=== PATIENT | female | born 1940 | race Caucasian/White ===

== ENCOUNTER 2016-09-04 14:37 | Inpatient (IN) | payer MEDICARE, OTHER ==
--- NOTE | 2016-09-04 15:26 | ER Document Report ---
ED General - General Stated Complaint: ALTERED MENTAL STATUS Time seen by provider: 15:22 Mode of Arrival: Ambulatory Information source: Patient Notes: This is a 76-year-old female with a history of chronic kidney disease (stage IV) , CHF, TIA/CVA, diabetes, recent pneumonia (on azithromycin). The patient is brought in by EMS from [facility] for changes in mental status associated with hypoxia (89% on room air), bradycardia and lethargy. - HPI Onset: Just prior to arrival Onset/Duration: Sudden Quality of pain: No pain Severity: None Pain Level: Denies Associated symptoms: Shortness of breath. denies: Chills, Fever Exacerbated by: Denies Relieved by: Denies Similar symptoms previously: Yes Recently seen / treated by doctor: No - Related Data Allergies/Adverse Reactions: cefadroxil [From Duricef] Allergy (Verified 09/04/16 22:56) celecoxib [From Celebrex] Allergy (Verified 09/04/16 22:56) Sulfa (Sulfonamide Antibiotics) Allergy (Verified 09/04/16 22:56) Home Medications: Current Home Medications Amiodarone HCl [Amiodarone HCl] 1 tab PO DAILY 09/04/16 [History] Ascorbic Acid [Vitamin C 500 mg Tablet] 500 mg PO DAILY 09/04/16 [History] Aspirin [Aspirin 81 mg Chewable Tablet] 81 mg PO DAILY 09/04/16 [History] Atorvastatin Calcium [Lipitor 10 mg Tablet] 10 mg PO QHS 09/04/16 [History] Azithromycin [Zithromax 250 mg Tablet] 500 mg PO DAILY 09/04/16 [History] Collagenase Clostridium Hist. [Santyl Ointment 30 gm] 1 applic TP DAILY [History] Cyanocobalamin (Vitamin B-12) [B-12] 1,000 mcg PO DAILY 09/04/16 [History] Dextrose 50 % in Water [Dextrose 50%-Water Syringe] 50 ml IV PRN PRN 09/04/16 [ History] Diclofenac Sodium [Voltaren] 2 gm TP DAILY 09/04/16 [History] Ergocalciferol (Vitamin D2) [Vitamin D2] 50,000 unit PO Q7D 09/04/16 [History] Ferrous Sulfate [Iron] 325 mg PO DAILY 09/04/16 [History] Furosemide [Lasix] 40 mg PO QPM 09/04/16 [History] Furosemide [Lasix] 80 mg PO QAM 09/04/16 [History] Gabapentin [Neurontin 100 mg Capsule] 100 mg PO TID 09/04/16 [History] Glucagon,Human Recombinant [Glucagon Emergency Kit] 1 mg IJ PRN PRN 09/04/16 [ History] Guaifenesin/D-Methorphan Hb [Robitussin-Dm Syrup 10 Ml Udcup] 10 ml PO Q4HP PRN 09/04/16 [History] Insulin Lispro [Humalog Insulin 100 Unit/1 ml 3 ml Vial] 0 unit SUBCUT .SLD SCALE 09/04/16 [History] Isosorb Dinit/Hydralazine HCl [Bidil 20-37.5 mg Tablet] 0.5 tab PO Q8 09/04/16 [ History] Ketoconazole [Nizoral] 1 applic TP BID 09/04/16 [History] Metoprolol Tartrate [Lopressor 25 mg Tablet] 25 mg PO Q12 09/04/16 [History] Mirtazapine [Remeron 15 mg Tablet] 15 mg PO QHS 09/04/16 [History] Multivitamin [Multivitamins] 1 each PO DAILY 09/04/16 [History] Omeprazole 20 mg PO DAILY 09/04/16 [History] Oxycodone HCl [Oxycodone HCl 10 MG Tablet] 10 mg PO TIDP PRN 09/04/16 [History] Potassium Chloride [Klor-Con 10 Meq Tablet.sa] 30 meq PO DAILY 09/04/16 [History ] Zinc Sulfate [Zinc-220 Capsule] 220 mg PO DAILY 09/04/16 [History] Past Medical History - General Information source: Patient, Outside Facility Records - Social History Smoking Status: Never Smoker Cigarette use (# per day): No Chew tobacco use (# tins/day): No Frequency of alcohol use: None Drug Abuse: None Lives with: [facility] Family History: None Patient has suicidal ideation: No Patient has homicidal ideation: No - Past Medical History Cardiac Medical History: Reports: Hx Congestive Heart Failure, Hx Hypertension Pulmonary Medical History: Reports: None Neurological Medical History: Reports: Hx Cerebrovascular Accident Endocrine Medical History: Reports: Hx Diabetes Mellitus Type 2 Renal/ Medical History: Reports: Hx Renal Insufficiency Malignancy Medical History: Reports: None GI Medical History: Reports: None Musculoskeltal Medical History: Reports Hx Arthritis Skin Medical History: Reports None Psychiatric Medical History: Reports: None Traumatic Medical History: Reports: None Infectious Medical History: Reports: Other Past Surgical History: Reports: Hx Orthopedic Surgery, Hx Pacemaker Review of Systems - Review of Systems Constitutional: denies: Chills, Fever EENT: No symptoms reported Cardiovascular: No symptoms reported Respiratory: See HPI Gastrointestinal: No symptoms reported Genitourinary: No symptoms reported Female Genitourinary: No symptoms reported Musculoskeletal: No symptoms reported Skin: No symptoms reported Hematologic/Lymphatic: No symptoms reported Neurological/Psychological: No symptoms reported Physical Exam - Vital signs Vitals: Temp Pulse Resp BP Pulse Ox 98.2 F 60 30 H 138/59 H 97 09/04/16 16:00 09/04/16 16:00 09/04/16 16:00 09/04/16 16:00 09/04/16 16:00 Notes: Physical exam: GENERAL: 86-year-old female, alert and oriented 3, no acute distress HEAD: Atraumatic, normocephalic. EYES: Pupils equal round and reactive to light, extraocular movements intact, sclera anicteric, conjunctiva are normal. ENT: TMs normal, nares patent, oropharynx clear without exudates. Moist mucous membranes. NECK: Normal range of motion, supple without lymphadenopathy or JVD. LUNGS: Breath sounds clear to auscultation bilaterally and equal. No wheezes rales or rhonchi. HEART: Regular rate and rhythm without murmurs, rubs or gallops. ABDOMEN: Soft, normoactive bowel sounds. No tenderness to palpation. No guarding, no rebound. No masses appreciated. EXTREMITIES: 1+ edema bilaterally, No clubbing or cyanosis. NEUROLOGICAL: Cranial nerves II through XII grossly intact. Normal speech, normal gait. PSYCH: Normal mood, normal affect. SKIN: Warm, Dry, normal turgor, no rashes or lesions noted. Course - Re-evaluation Re-evalutation: 09/04/16 23:24 Note: The patient was transferred over because of change in mental status and hypoxia on 2 L nasal cannula. She does appear to be fluid overloaded in the emergency room. Also of concern, she does have severe hyperkalemia. EKG shows a paced rhythm. She has received IV Lasix with good response, IV insulin and D50, IV calcium and Kayexalate. She was watched several hours in the emergency room. I did discuss the case with Dr. Peacock who agreed with the plan. She will see the patient in consult for nephrology. The plan will be to admit to the hospitalist service. I discussed the case with Dr. Willis is willing to admit the patient. - Vital Signs Vital signs: Temp Pulse Resp BP Pulse Ox 98.2 F 60 22 H 138/60 H 99 09/04/16 16:00 09/04/16 21:00 09/04/16 22:45 09/04/16 22:09 09/04/16 22:45 - Laboratory Result Diagrams: 09/04/16 16:45 09/04/16 22:47 Laboratory results interpreted by me: 09/04/16 09/04/16 09/04/16 16:45 16:45 16:45 RBC 3.38 L Hgb 10.7 L Hct 33.0 L MCV 98 H Sodium 136.7 L Potassium 7.8 H* Chloride 97 L Carbon Dioxide 34 H BUN 56 H Creatinine 2.43 H Est GFR ( Amer) 23 L Est GFR (Non-Af Amer) 19 L Glucose 169 H POC Glucose Creatine Kinase < 20 L NT-Pro-B Natriuret Pep 64165 H Albumin 3.2 L Urine Ascorbic Acid 09/04/16 09/04/16 09/04/16 17:00 18:00 19:11 RBC Hgb Hct MCV Sodium Potassium 7.5 H* Chloride Carbon Dioxide 35 H BUN 56 H Creatinine 2.53 H Est GFR ( Amer) 22 L Est GFR (Non-Af Amer) 18 L Glucose 157 H POC Glucose 198 H Creatine Kinase NT-Pro-B Natriuret Pep Albumin Urine Ascorbic Acid 40 H 09/04/16 09/04/16 20:35 22:47 RBC Hgb Hct MCV Sodium Potassium 7.5 H* 7.0 H* Chloride Carbon Dioxide 33 H 33 H BUN 59 H 56 H Creatinine 2.41 H 2.44 H Est GFR ( Amer) 24 L 23 L Est GFR (Non-Af Amer) 19 L 19 L Glucose 195 H 229 H POC Glucose Creatine Kinase NT-Pro-B Natriuret Pep Albumin Urine Ascorbic Acid - Diagnostic Test Radiology reviewed: Image reviewed, Reports reviewed - EKG Interpretation by Me Rate: Normal - EKG shows a paced rhythm at a rate of 60, 100% capture. Critical Care Note - Critical Care Note Total time excluding time spent on procedures (mins): 90 Discharge - Discharge Clinical Impression: CHF, hyperkalemia Condition: Serious Disposition: ADMITTED INPATIENT Admitting Provider: Hospitalist - Dr. Willis Unit Admitted: Telemetry
[2016-09-04] MEDS ORDERED: FUROSEMIDE INJ/PF 40 MG/4 ML SDV IV ONE ×2 (16:57→18:50)
[2016-09-04 17:05] LABS: HEMOGLOBIN 10.7 g/dL (12.0-15.5); HGB HCT DIFFERENCE -0.9; MEAN CORPUSCULAR HEMOGLOBIN 31.5 pg (27.0-33.4); MEAN CORPUSCULAR HGB CONC 32.3 g/dL (32.0-36.0); MEAN CORPUSCULAR VOLUME 98 fl (80-97); RED BLOOD COUNT 3.38 10^6/uL (3.72-5.28); WHITE BLOOD COUNT 5.2 10^3/uL (4.0-10.5)
[2016-09-04 17:19] LABS: ALANINE AMINOTRANSFERASE 17 U/L (9-52); ALBUMIN 3.2 g/dL (3.5-5.0); ALKALINE PHOSPHATASE 116 U/L (38-126); ANION GAP 6 (5-19); ASPARTATE AMINO TRANSFERASE 20 U/L (14-36); BAND NEUTROPHILS % (MANUAL) 3 % (3-5); BASOPHILS % (MANUAL) 0 % (0-2); BILIRUBIN,TOTAL 0.5 mg/dL (0.2-1.3); BLOOD UREA NITROGEN 56 mg/dL (7-20); CARBON DIOXIDE 34 mmol/L (22-30); CHLORIDE 97 mmol/L (98-107); CREATININE RESULT 2.43 mg/dL (0.52-1.25); EOSINOPHILS % (MANUAL) 1 % (0-6); GLUCOSE 169 mg/dL (75-110); LYMPHOCYTES % (MANUAL) 14 % (13-45); SODIUM 136.7 mmol/L (137-145); TOTAL CELLS COUNTED 100; TOTAL PROTEIN 6.9 g/dL (6.3-8.2)
[2016-09-04 17:20] LABS: ANISOCYTOSIS SLIGHT; POLYCHROMASIA SLIGHT; TOXIC GRANULATION SLIGHT
[2016-09-04 17:21] LABS: APPEARANCE,URINE SLIGHTLY-CLOUDY; BILIRUBIN,URINE NEGATIVE (NEGATIVE); GLUCOSE, URINE NEGATIVE (NEGATIVE); KETONES,URINE NEGATIVE (NEGATIVE); LEUKOCYTE ESTERASE,URINE NEGATIVE (NEGATIVE); NITRITE,URINE NEGATIVE (NEGATIVE); PROTEIN,URINE NEGATIVE (NEGATIVE); URINE SPECIFIC GRAVITY 1.014; UROBILINOGEN,URINE NEGATIVE mg/dL (<2.0)
[2016-09-04 17:31] LABS: CREATINE KINASE MB 1.77 ng/mL (<4.55)
[2016-09-04 17:32] LABS: CREATINE KINASE < 20 U/L (30-135)
[2016-09-04 17:34] LABS: POTASSIUM 7.8 mmol/L (3.6-5.0)
[2016-09-04 17:35] LABS: TROPONIN I < 0.012 ng/mL
[2016-09-04] MEDS ORDERED: DEXTROSE 50%-WATER 25 GM/50 ML DISP.SYRIN IV ONE ×2 (17:37→21:32)
[2016-09-04] MEDS ORDERED: CALCIUM GLUCONATE 1000 MG/10 ML INJ IV ONE ×2 (17:37→18:47)
[2016-09-04] MEDS ORDERED: INSULIN REG, HUMAN 100 UNIT/ML 3 ML VIAL (PYX) IV ONE ×2 (17:38→21:32)
[2016-09-04 18:34] LABS: ANION GAP 5 (5-19); BLOOD UREA NITROGEN 56 mg/dL (7-20); CARBON DIOXIDE 35 mmol/L (22-30); CHLORIDE 99 mmol/L (98-107); CREATININE RESULT 2.53 mg/dL (0.52-1.25); GLUCOSE 157 mg/dL (75-110); SODIUM 138.7 mmol/L (137-145)
[2016-09-04 18:39] LABS: POTASSIUM 7.5 mmol/L (3.6-5.0)
[2016-09-04] MEDS ORDERED: SODIUM POLYSTYRENE SULFONATE 15 GM/60 ML PO ONE ×2 (18:48→21:32)
[2016-09-04 21:17] LABS: ANION GAP 5 (5-19); BLOOD UREA NITROGEN 59 mg/dL (7-20); CALCIUM 9.1 mg/dL (8.4-10.2); CARBON DIOXIDE 33 mmol/L (22-30); CHLORIDE 99 mmol/L (98-107); CREATININE RESULT 2.41 mg/dL (0.52-1.25); GLUCOSE 195 mg/dL (75-110); SODIUM 137.4 mmol/L (137-145)
[2016-09-04 21:21] LABS: POTASSIUM 7.5 mmol/L (3.6-5.0)
[2016-09-04] MEDS ORDERED: IPRATROPIUM/ALBUTEROL 0.5-2.5 MG/3 ML AMPUL NEB ONE (21:56)
[2016-09-04 23:14] LABS: ANION GAP 7 (5-19); BLOOD UREA NITROGEN 56 mg/dL (7-20); CALCIUM 9.3 mg/dL (8.4-10.2); CARBON DIOXIDE 33 mmol/L (22-30); CHLORIDE 100 mmol/L (98-107); CREATININE RESULT 2.44 mg/dL (0.52-1.25); GLUCOSE 229 mg/dL (75-110); SODIUM 139.9 mmol/L (137-145)
[2016-09-04] MEDS ORDERED: DEXTROSE 40% GEL 15 GM TUBE PO PRN ×2 (23:24)
[2016-09-04] MEDS ORDERED: GLUCAGON,HUMAN RECOMB 1 MG INJ IM PRN (23:24)
[2016-09-04] MEDS ORDERED: ACETAMINOPHEN 325 MG TABLET PO PRN (23:24)
[2016-09-04] MEDS ORDERED: DEXTROSE 50%-WATER 25 GM/50 ML DISP.SYRIN IV PRN ×2 (23:24)
--- NOTE | 2016-09-04 23:53 | EKG REPORT ---
SEVERITY:- ABNORMAL ECG - A-V DUAL-PACED RHYTHM WITH SOME INHIBITION : Confirmed by: Kayla Roberts 04-Sep-2016 23:52:46
[2016-09-05] MEDS ORDERED: LACTULOSE SYRUP 20 GM/30 ML UDCUP PO ONE (00:15)
[2016-09-05] MEDS: ATORVASTATIN CALCIUM 10 MG TABLET PO SCH (00:58)
[2016-09-05] MEDS: GABAPENTIN 100 MG CAPSULE PO SCH ×3 (00:59→18:40)
[2016-09-05] MEDS: MIRTAZAPINE 15 MG TABLET PO SCH (00:59)
[2016-09-05] MEDS: IPRATROPIUM/ALBUTEROL 0.5-2.5 MG/3 ML AMPUL NEB SCH ×4 (01:54→20:38)
--- NOTE | 2016-09-05 05:51 | PDOC H&P ---
History of Present Illness Admission Date/PCP: 09/04/16 23:24 STEFAN GÓMEZ JR, MD Patient complains of: Shortness of breath History of Present Illness: ANGELIKA SHAFFER is a 76 year old female who is a residential resident who is unable to provide history given delirium who was noted by residential staff to be short of breath and brought to the emergency room for evaluation where she's found to be in congestive heart failure, acute on chronic kidney failure, hyperkalemia, delirium and with an obvious history of morbid obesity and chronic lower extremity venous stasis. She receives oxygen and IV Lasix and referred to the hospitalist for admission. She currently denies anything, but is clearly delirious. Past Medical History Cardiac Medical History: Reports: Congestive Heart Failure, Hypertension Pulmonary Medical History: Reports: None Endocrine Medical History: Reports: Diabetes Mellitus Type 2, Obesity Renal/ Medical History: Reports: Chronic Kidney Disease Malignancy Medical History: Reports: None GI Medical History: Reports: None Musculoskeltal Medical History: Reports: Arthritis Skin Medical History: Reports: None Psychiatric Medical History: Reports: None, Depression Traumatic Medical History: Reports: None Past Surgical History Past Surgical History: Reports: Orthopedic Surgery, Pacemaker Social History Information Source: [facility] Records Lives with: Custodial Smoking Status: Never Smoker - Advance Directive Resuscitation Status: Full Code Family History Family History: Other - Unobtainable Parental Family History Reviewed: Yes Children Family History Reviewed: Yes Sibling(s) Family History Reviewed.: Yes Medication/Allergy Home Medications: Amiodarone HCl [Amiodarone HCl] 1 tab PO DAILY 09/04/16 Ascorbic Acid [Vitamin C 500 mg Tablet] 500 mg PO DAILY 09/04/16 Aspirin [Aspirin 81 mg Chewable Tablet] 81 mg PO DAILY 09/04/16 Atorvastatin Calcium [Lipitor 10 mg Tablet] 10 mg PO QHS 09/04/16 Azithromycin [Zithromax 250 mg Tablet] 500 mg PO DAILY 09/04/16 Collagenase Clostridium Hist. [Santyl Ointment 30 gm] 1 applic TP DAILY Cyanocobalamin (Vitamin B-12) [B-12] 1,000 mcg PO DAILY 09/04/16 Dextrose 50 % in Water [Dextrose 50%-Water Syringe] 50 ml IV PRN PRN 09/04/16 Diclofenac Sodium [Voltaren] 2 gm TP DAILY 09/04/16 Ergocalciferol (Vitamin D2) [Vitamin D2] 50,000 unit PO Q7D 09/04/16 Ferrous Sulfate [Iron] 325 mg PO DAILY 09/04/16 Furosemide [Lasix] 40 mg PO QPM 09/04/16 Furosemide [Lasix] 80 mg PO QAM 09/04/16 Gabapentin [Neurontin 100 mg Capsule] 100 mg PO TID 09/04/16 Glucagon,Human Recombinant [Glucagon Emergency Kit] 1 mg IJ PRN PRN 09/04/16 Guaifenesin/D-Methorphan Hb [Robitussin-Dm Syrup 10 Ml Udcup] 10 ml PO Q4HP PRN 09/04/16 Insulin Lispro [Humalog Insulin 100 Unit/1 ml 3 ml Vial] 0 unit SUBCUT .SLD SCALE 09/04/16 Isosorb Dinit/Hydralazine HCl [Bidil 20-37.5 mg Tablet] 0.5 tab PO Q8 09/04/16 Ketoconazole [Nizoral] 1 applic TP BID 09/04/16 Metoprolol Tartrate [Lopressor 25 mg Tablet] 25 mg PO Q12 09/04/16 Mirtazapine [Remeron 15 mg Tablet] 15 mg PO QHS 09/04/16 Multivitamin [Multivitamins] 1 each PO DAILY 09/04/16 Omeprazole 20 mg PO DAILY 09/04/16 Oxycodone HCl [Oxycodone HCl 10 MG Tablet] 10 mg PO TIDP PRN 09/04/16 Potassium Chloride [Klor-Con 10 Meq Tablet.sa] 30 meq PO DAILY 09/04/16 Zinc Sulfate [Zinc-220 Capsule] 220 mg PO DAILY 09/04/16 Allergies/Adverse Reactions: cefadroxil [From Duricef] Allergy (Verified 09/04/16 22:56) celecoxib [From Celebrex] Allergy (Verified 09/04/16 22:56) Sulfa (Sulfonamide Antibiotics) Allergy (Verified 09/04/16 22:56) Review of Systems ROS unobtainable: Due to mental status Physical Exam Vital Signs: Temp Pulse Resp BP Pulse Ox 97.4 F 63 22 H 145/62 H 90 L 09/05/16 03:41 09/05/16 03:41 09/05/16 03:41 09/05/16 03:41 09/05/16 03:41 General appearance: PRESENT: no acute distress, cooperative, morbidly obese Head exam: PRESENT: atraumatic, normocephalic Eye exam: PRESENT: conjunctiva pink, EOMI, PERRLA. ABSENT: scleral icterus Ear exam: PRESENT: normal external ear exam Mouth exam: PRESENT: dry mucosa Neck exam: ABSENT: carotid bruit, JVD, lymphadenopathy, thyromegaly Respiratory exam: PRESENT: clear to auscultation julia, crackles, decreased breath sounds, symmetrical. ABSENT: accessory muscle use, chest wall tenderness , prolonged expiratory phas, rales, retraction, rhonchi, stridor, wheezes Cardiovascular exam: PRESENT: RRR. ABSENT: diastolic murmur, rubs, systolic murmur Pulses: PRESENT: normal dorsalis pedis pul Vascular exam: PRESENT: normal capillary refill GI/Abdominal exam: PRESENT: normal bowel sounds, soft. ABSENT: distended, guarding, mass, organolmegaly, rebound, tenderness Rectal exam: PRESENT: deferred Extremities exam: PRESENT: tenderness, +1 edema Musculoskeletal exam: ABSENT: ambulatory Neurological exam: PRESENT: alert, altered, awake, oriented to person, reflexes normal, CN II-XII grossly intact. ABSENT: oriented to place, oriented to time, oriented to situation Psychiatric exam: PRESENT: anxious Skin exam: PRESENT: dry, intact, warm, other - Left stage II heel ulcer. ABSENT : cyanosis, rash Results Impressions: Chest X-Ray 09/04/16 15:26 IMPRESSION: Findings are consistent with vascular congestion. Assessment & Plan - Diagnosis (1) Congestive heart failure Qualifiers: Congestive heart failure type: unspecified congestive heart failure type Is this a current diagnosis for this admission?: YesPlan: Pending medical records Gentle diuresis, blood pressure control with fluid restriction and reevaluation of chemistry (2) Acute on chronic renal failure Is this a current diagnosis for this admission?: YesPlan: Pending medical records unclear cause possible overdiuresis will avoid nephrotoxic meds and doses reevaluation with chemistry (3) Hyperkalemia Is this a current diagnosis for this admission?: YesPlan: She has a paced rhythm on EKG, Lactulose and Kayexalate ordered when necessary enema, low potassium diet (4) Delirium Is this a current diagnosis for this admission?: YesPlan: Unclear baseline continue supportive measures evaluate TSH - Time Time Spent: 50 to 70 Minutes
[2016-09-05 06:06] LABS: HEMATOCRIT 30.2 % (36.0-47.0); HEMOGLOBIN 9.7 g/dL (12.0-15.5); HGB HCT DIFFERENCE -1.1; MEAN CORPUSCULAR HEMOGLOBIN 31.3 pg (27.0-33.4); MEAN CORPUSCULAR HGB CONC 32.2 g/dL (32.0-36.0); MEAN CORPUSCULAR VOLUME 98 fl (80-97); RED CELL DISTRIBUTION WIDTH 13.9 % (11.5-14.0); WHITE BLOOD COUNT 5.2 10^3/uL (4.0-10.5)
[2016-09-05 06:28] LABS: BAND NEUTROPHILS % (MANUAL) 1 % (3-5); BASOPHILS % (MANUAL) 0 % (0-2); EOSINOPHILS % (MANUAL) 3 % (0-6); LYMPHOCYTES % (MANUAL) 11 % (13-45); TOTAL CELLS COUNTED 100
[2016-09-05 06:30] LABS: ANION GAP 5 (5-19); BLOOD UREA NITROGEN 55 mg/dL (7-20); CALCIUM 8.7 mg/dL (8.4-10.2); CARBON DIOXIDE 36 mmol/L (22-30); CHLORIDE 99 mmol/L (98-107); CREATININE RESULT 2.49 mg/dL (0.52-1.25); GLUCOSE 99 mg/dL (75-110); SODIUM 139.5 mmol/L (137-145)
[2016-09-05 06:31] LABS: ANISOCYTOSIS SLIGHT; POLYCHROMASIA SLIGHT; TOXIC GRANULATION SLIGHT
[2016-09-05] MEDS: HEPARIN SOD (PORCINE) 5,000 UNIT/ML 1 ML SYRINGE SUBCUT SCH ×3 (07:02→21:57)
[2016-09-05] MEDS ORDERED: FUROSEMIDE 40 MG TABLET PO SCH (08:00)
[2016-09-05] MEDS: AMIODARONE HCL 200 MG TABLET PO SCH (09:44)
[2016-09-05] MEDS: CYANOCOBALAMIN (VITAMIN B-12) 1,000 MCG TABLET PO SCH (09:45)
[2016-09-05] MEDS: ASCORBIC ACID 500 MG TABLET PO SCH (09:45)
[2016-09-05] MEDS: ASPIRIN 81 MG TABLET, CHEWABLE PO SCH (09:46)
--- NOTE | 2016-09-05 13:38 | PDOC PROGRESS REPORT ---
Subjective Progress Note for:: 09/05/16 Subjective:: Patient is alert and oriented 3 this morning. Physical Exam Vital Signs: Temp Pulse Resp BP Pulse Ox 98.0 F 83 16 115/55 L 92 09/05/16 08:09 09/05/16 08:11 09/05/16 08:11 09/05/16 08:09 09/05/16 08:11 Intake & Output 09/04/16 09/05/16 09/06/16 06:59 06:59 06:59 Intake Total 6 Output Total 800 Balance -794 Weight 127.6 kg General appearance: PRESENT: no acute distress Eye exam: PRESENT: conjunctiva pink. ABSENT: scleral icterus Ear exam: PRESENT: normal external ear exam Mouth exam: PRESENT: moist, tongue midline Neck exam: ABSENT: carotid bruit, JVD, lymphadenopathy, thyromegaly Respiratory exam: PRESENT: clear to auscultation ujlia. ABSENT: rales, rhonchi, wheezes Cardiovascular exam: PRESENT: RRR. ABSENT: diastolic murmur, rubs, systolic murmur GI/Abdominal exam: PRESENT: normal bowel sounds, soft. ABSENT: distended, guarding, mass, organolmegaly, rebound, tenderness Extremities exam: PRESENT: pedal edema - Trace pedal edema.. ABSENT: calf tenderness, clubbing Neurological exam: PRESENT: alert, awake, oriented to person, oriented to place , oriented to time, oriented to situation Psychiatric exam: PRESENT: appropriate affect Skin exam: PRESENT: dry, intact, warm. ABSENT: cyanosis, rash Results Laboratory Results: 09/05/16 05:20 09/05/16 05:20 09/05/16 09/05/16 09/05/16 05:20 05:20 05:20 WBC 5.2 RBC 3.10 L Hgb 9.7 L Hct 30.2 L MCV 98 H MCH 31.3 MCHC 32.2 RDW 13.9 Plt Count 181 Seg Neutrophils % Not Reportable Lymphocytes % Not Reportable Monocytes % Not Reportable Eosinophils % Not Reportable Basophils % Not Reportable Absolute Neutrophils Not Reportable Absolute Lymphocytes Not Reportable Absolute Monocytes Not Reportable Absolute Eosinophils Not Reportable Absolute Basophils Not Reportable Sodium 139.5 Potassium 6.0 H* D Chloride 99 Carbon Dioxide 36 H Anion Gap 5 BUN 55 H Creatinine 2.49 H Est GFR ( Amer) 23 L Est GFR (Non-Af Amer) 19 L Glucose 99 Calcium 8.7 TSH 1.25 Impressions: Chest X-Ray 09/04/16 15:26 IMPRESSION: Findings are consistent with vascular congestion. Assessment & Plan - Diagnosis (1) Delirium Is this a current diagnosis for this admission?: YesPlan: The patient's delirium has resolved. (2) Acute on chronic renal failure Is this a current diagnosis for this admission?: YesPlan: Patient has stage IV chronic renal failure. She appears to be euvolemic at this time. (3) Congestive heart failure Qualifiers: Congestive heart failure type: unspecified congestive heart failure type Is this a current diagnosis for this admission?: YesPlan: We'll continue with the oral Lasix. She is euvolemic currently. (4) Hyperkalemia Is this a current diagnosis for this admission?: YesPlan: We'll give Kayexalate and follow her potassium. If still elevated tomorrow will consult nephrology. - Time Time Spent with patient: 25-34 minutes - Inpatient Certification Medical Necessity: Need Close Monitoring Due to Risk of Patient Decompensation - Plan Summary Plan Summary: If her potassium is normal tomorrow we can hopefully discharged back to [facility] tomorrow.
[2016-09-05] MEDS ORDERED: SODIUM POLYSTYRENE SULFONATE 15 GM/60 ML PO ONE (14:30)
--- NOTE | 2016-09-05 16:22 | PDOC CONSULTATION ---
Consultation Consult Date: 09/05/16 Attending physician:: JOAQUIN Casey BUSTEED Consult reason:: I was asked by Dr. Bautista and Dr. Willis from the hospitalist service to see this patient due to hyperkalemia and worsening renal failure. History of Present Illness Admission Date/PCP: 09/04/16 23:24 STEFAN GÓMEZ JR, MD History of Present Illness: ANGELIKA SHAFFER is a 76 year old female who is a prison resident who is unable to provide history given delirium who was noted by prison staff to be short of breath and brought to the emergency room for evaluation where she's found to be in congestive heart failure, acute on chronic kidney failure, hyperkalemia, delirium and with an obvious history of morbid obesity and chronic lower extremity venous stasis. She receives oxygen and IV Lasix and referred to the hospitalist for admission. Patient is currently more awake and communicating better from description above compared to last night. However the patient is a poor historian and really could not tell me much of her medical history including why she was sent here in the hospital. Currently she denies any shortness of breath, chest pains, nausea, vomiting, and diarrhea. She tells me she only has chronic back pain and currently feeling fine. She did not notice any change in her appetite for the last few days. She however told me that she knows that she is swollen today more than usual. In terms of her chronic kidney disease she tells me that she has had kidney problems before but has not seen a brush and broom clipper in the past. So I went ahead and called her daughter, Ms. Siomara Palacios and spoke to her over the phone about the patient's history. Mrs. Palacios told me that the patient has had 2 episodes of pneumonia in 2016. She was hospitalized in April at [facility] for congestive heart failure, renal failure, and dehydration. She was discharged to rehabilitation in [place] and transferred to [facility] [place] and stayed there for 30 days. She went home briefly on June 15 and after a couple of days she went back at [facility] for another episode of pneumonia. Posthospitalization she was then sent to [facility]. The daughter said that a friend of hers visited the patient 2 days ago Saturday and patient was noted to be somnolent and nodding her head off. Subsequently yesterday she was sent by [facility] to the emergency room due to delirium and shortness of breath as of stated above. Daughter said that the patient has a instrumentation technologist in [place], Dr. Ozuna. 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 Daughter related that patient had history of renal failure secondary to dehydration but she has never seen a brush and broom clipper. Daughter also confirmed that the patient did have episodes of hyperkalemia last year. Upon presentation last night the patient has elevated potassium of 7.8 and a BUN of 56 creatinine of 2.43. On 07/11/2016 she had a BUN of 28 creatinine of 1.84 with estimated GFR of 27. Patient was given a cocktail of medications for hyperkalemia including insulin, D50 /50, IV calcium gluconate, and a total of 60 g of Kayexalate. Her potassium today went down to 6.0 but still elevated. Patient was also given Lasix intravenously with 40 mg twice. Currently she was placed on her regular dose of furosemide. Patient's mental status seems better. She is making urine. Past Medical History Cardiac Medical History: Reports: CHF-Systolic, Hypertension-primary, Other - Arrhythmia Endocrine Medical History: Reports: Diabetes Mellitus Type 2, Obesity Renal/ Medical History: Reports: Chronic Kidney Disease Stage IV, Hyperkalemia Musculoskeltal Medical History: Reports: Arthritis Psychiatric Medical History: Reports: Depression Past Surgical History Past Surgical History: Reports: Orthopedic Surgery, Pacemaker - 12/06/2015 Social History Information Source: Relative - Daughter Lives with: Residential Smoking Status: Never Smoker Frequency of Alcohol Use: None Drugs: None - Advance Directive Resuscitation Status: Full Code Family History Family History: Other - Heart disease on her parents Parental Family History Reviewed: Yes Children Family History Reviewed: Unknown Sibling(s) Family History Reviewed.: Unknown Medication/Allergy Home Medications: Amiodarone HCl [Amiodarone HCl] 1 tab PO DAILY 09/04/16 Ascorbic Acid [Vitamin C 500 mg Tablet] 500 mg PO DAILY 09/04/16 Aspirin [Aspirin 81 mg Chewable Tablet] 81 mg PO DAILY 09/04/16 Atorvastatin Calcium [Lipitor 10 mg Tablet] 10 mg PO QHS 09/04/16 Azithromycin [Zithromax 250 mg Tablet] 500 mg PO DAILY 09/04/16 Collagenase Clostridium Hist. [Santyl Ointment 30 gm] 1 applic TP DAILY Cyanocobalamin (Vitamin B-12) [B-12] 1,000 mcg PO DAILY 09/04/16 Dextrose 50 % in Water [Dextrose 50%-Water Syringe] 50 ml IV PRN PRN 09/04/16 Diclofenac Sodium [Voltaren] 2 gm TP DAILY 09/04/16 Ergocalciferol (Vitamin D2) [Vitamin D2] 50,000 unit PO FR@1000 09/04/16 Ferrous Sulfate [Iron] 325 mg PO BID 09/04/16 Furosemide [Lasix] 40 mg PO QPM 09/04/16 Furosemide [Lasix] 80 mg PO QAM 09/04/16 Gabapentin [Neurontin 100 mg Capsule] 100 mg PO Q8 09/04/16 Glucagon,Human Recombinant [Glucagon Emergency Kit] 1 mg IJ PRN PRN 09/04/16 Insulin Lispro [Humalog Insulin 100 Unit/1 ml 3 ml Vial] 0 unit SUBCUT .SLD SCALE 09/04/16 Isosorb Dinit/Hydralazine HCl [Bidil 20-37.5 mg Tablet] 0.5 tab PO Q8 09/04/16 Ketoconazole [Nizoral] 1 applic TP BID 09/04/16 Metoprolol Tartrate [Lopressor 25 mg Tablet] 25 mg PO Q12 09/04/16 Mirtazapine [Remeron 15 mg Tablet] 15 mg PO QHS 09/04/16 Multivitamin [Multivitamins] 1 each PO DAILY 09/04/16 Omeprazole 20 mg PO DAILY 09/04/16 Oxycodone HCl [Oxycodone HCl 10 MG Tablet] 10 mg PO TIDP PRN 09/04/16 Potassium Chloride [Klor-Con 10 Meq Tablet.sa] 30 meq PO DAILY 09/04/16 Zinc Sulfate [Zinc-220 Capsule] 220 mg PO DAILY 09/04/16 Guaifenesin [Robitussin Syrup 200 mg/10 ml Ud Cup] 200 mg PO Q4HP PRN 09/05/16 Allergies/Adverse Reactions: cefadroxil [From Duricef] Allergy (Verified 09/04/16 22:56) celecoxib [From Celebrex] Allergy (Verified 09/04/16 22:56) Sulfa (Sulfonamide Antibiotics) Allergy (Verified 09/04/16 22:56) Review of Systems All systems: reviewed and no additional remarkable complaints except as stated Review of Systems: Constitutional: ABSENT: chills, fatigue, fever(s), headache(s), weight gain, weight loss Eyes: ABSENT: visual disturbances Ears: ABSENT: hearing changes Cardiovascular: ABSENT: chest pain, orthropnea, palpitations; admits shortness of breath and worsening swelling in both upper and lower extremities Respiratory: ABSENT: cough, dyspnea, hemoptysis Gastrointestinal: ABSENT: abdominal pain, constipation, diarrhea, hematemesis, hematochezia, nausea, vomiting Genitourinary: ABSENT: dysuria, hematuria Musculoskeletal: ABSENT: joint swelling Integumentary: ABSENT: rash, wounds Neurological: ABSENT: abnormal gait, abnormal speech, confusion, dizziness, focal weakness, numbness, syncope; yesterday the patient was delirious but not currently Psychiatric: ABSENT: anxiety, depression Endocrine: ABSENT: cold intolerance, heat intolerance, polydipsia, polyuria Hematologic/Lymphatic: ABSENT: easy bleeding, easy bruising, lymphadenopathy Physical Exam Vital Signs: Temp Pulse Resp BP Pulse Ox 98.0 F 81 16 115/55 L 92 09/05/16 08:09 09/05/16 13:31 09/05/16 13:31 09/05/16 08:09 09/05/16 08:11 Intake & Output 09/04/16 09/05/16 09/06/16 06:59 06:59 06:59 Intake Total 6 Output Total 800 Balance -794 Weight 127.6 kg Exam: General appearance: no acute distress, cooperative, well-developed, well- nourished Head exam: PRESENT: atraumatic, normocephalic Eye exam: PRESENT: Conjunctiva pale, EOMI, PERRLA. ABSENT: conjunctival injection, scleral icterus Mouth exam: PRESENT: moist, neck supple, tongue midline Neck exam: PRESENT: full ROM. ABSENT: carotid bruit, JVD, lymphadenopathy, thyromegaly Respiratory exam: PRESENT: Diminished to auscultation bilaterally. She has bilateral crackles from mid to lower lung collins ABSENT: rhonchi, stridor, wheezes Cardiovascular exam: PRESENT: RRR, +S1, +S2. ABSENT: systolic murmur Pulses: PRESENT: normal radial pulses, normal dorsalis pedis pulses GI/Abdominal exam: PRESENT: normal bowel sounds, soft. Obese abdomen ABSENT: guarding, mass, tenderness Rectal exam: deferred Extremities exam: PRESENT: full ROM. She has some bilateral upper extremity edema as well as grade 1 bilateral lower extremity pitting edema. ABSENT: calf tenderness Musculoskeletal: PRESENT: full ROM. ABSENT: deformity Neurological exam: PRESENT: alert, Awake, Oriented to person, Oriented to place , Oriented to time, reflexes normal, CN II-XII grossly intact. ABSENT: motor sensory deficit Psychiatric exam: PRESENT: appropriate affect, normal mood. ABSENT: homicidal ideation, suicidal ideation Skin exam: PRESENT: intact, dry, warm. ABSENT: rash Results Laboratory Results: 09/05/16 05:20 09/05/16 05:20 09/05/16 09/05/16 09/05/16 05:20 05:20 05:20 WBC 5.2 RBC 3.10 L Hgb 9.7 L Hct 30.2 L MCV 98 H MCH 31.3 MCHC 32.2 RDW 13.9 Plt Count 181 Seg Neutrophils % Not Reportable Lymphocytes % Not Reportable Monocytes % Not Reportable Eosinophils % Not Reportable Basophils % Not Reportable Absolute Neutrophils Not Reportable Absolute Lymphocytes Not Reportable Absolute Monocytes Not Reportable Absolute Eosinophils Not Reportable Absolute Basophils Not Reportable Sodium 139.5 Potassium 6.0 H* D Chloride 99 Carbon Dioxide 36 H Anion Gap 5 BUN 55 H Creatinine 2.49 H Est GFR ( Amer) 23 L Est GFR (Non-Af Amer) 19 L Glucose 99 Calcium 8.7 TSH 1.25 Impressions: Chest X-Ray 09/04/16 15:26 IMPRESSION: Findings are consistent with vascular congestion. Assessment & Plan - Diagnosis (1) Acute on chronic renal failure Is this a current diagnosis for this admission?: YesPlan: Patient does not have any significant proteinuria nor hematuria. It seems like she does have baseline chronic kidney disease possibly stage IV. It's very possible that the patient has some kind of cardiorenal syndrome and vascular disease causing chronic kidney disease. With regards to acute worsening of kidney function, exact etiology is uncertain. It could be that she has had exacerbation of congestive heart failure affecting her kidney function. However it's also possible that her kidney function is actually worsening causing pulmonary vascular congestion. Patient has been on diuretics as well as Celebrex. These could be contributory factors to her kidney disease. Currently the patient is non-oliguric. At this point we'll monitor the patient's kidney function. If the kidney function stabilized then we will work her off for any other complications of chronic kidney disease. We will get a kidney ultrasound. Since her potassium is improving, there is no urgent indication for any renal replacement therapy at this time. She definitely needs diuretics. At this time she is ordered her usual diuretic regimen. If the oral diuretics does not improve her fluid retention she might need some IV diuretics. We will monitor the patient closely. (2) Hyperkalemia Is this a current diagnosis for this admission?: YesPlan: Potassium is improved from 7.8-6.0 today. We will repeat her basic metabolic panel at 6 PM today and if potassium is still elevated she might need another dose of Kayexalate. Her diuretics can help reduce the potassium. Patient needs to be on low potassium diet. (3) Congestive heart failure Qualifiers: Congestive heart failure type: unspecified congestive heart failure type Is this a current diagnosis for this admission?: YesPlan: Might need some cardiology records or workup. We will defer management of this to primary service. Continue diuretics with possible need of intravenous diuretics. (4) Hypertension Is this a current diagnosis for this admission?: YesPlan: Controlled. (5) Anemia Qualifiers: Anemia type: unspecified type Qualified Code(s): D64.9 - Anemia, unspecified Is this a current diagnosis for this admission?: YesPlan: Could be due to underlying chronic kidney disease and other chronic illnesses. Patient needs workup once stable. (6) Delirium Is this a current diagnosis for this admission?: YesPlan: Improved and resolving. (7) Obesity Is this a current diagnosis for this admission?: Yes (8) History of cardiac arrhythmia Is this a current diagnosis for this admission?: NoPlan: Patient has pacemaker. - Notes Notes: Thank you very much for this consultation and I'll follow the patient with you. - Time Time Spent: 50 to 70 Minutes
[2016-09-05] MEDS: ISOSORB DINIT/HYDRALAZINE HCL 20-37.5 MG TABLET PO SCH ×2 (16:40→21:58)
[2016-09-05] MEDS: FUROSEMIDE 40 MG TABLET PO SCH (18:37)
[2016-09-05] MEDS: INSULIN REG, HUMAN 100 UNIT/ML 3 ML VIAL (PYX) SUBCUT PRN (18:40)
[2016-09-05] MEDS: TRAMADOL HCL 50 MG TABLET PO PRN (19:36)
[2016-09-05 20:36] LABS: ANION GAP 6 (5-19); BLOOD UREA NITROGEN 53 mg/dL (7-20); CALCIUM 8.8 mg/dL (8.4-10.2); CARBON DIOXIDE 36 mmol/L (22-30); CHLORIDE 97 mmol/L (98-107); CREATININE RESULT 2.42 mg/dL (0.52-1.25); GLUCOSE 151 mg/dL (75-110); POTASSIUM 5.1 mmol/L (3.6-5.0); SODIUM 138.6 mmol/L (137-145)
[2016-09-05] MEDS: SODIUM POLYSTYRENE SULFONATE 15 GM/60 ML PO SCH (21:59)
[2016-09-05] MEDS: METOPROLOL TARTRATE 25 MG TABLET PO SCH (21:59)
[2016-09-06] MEDS: IPRATROPIUM/ALBUTEROL 0.5-2.5 MG/3 ML AMPUL NEB SCH ×4 (02:18→20:38)
[2016-09-06 05:39] LABS: HEMATOCRIT 27.6 % (36.0-47.0); HGB HCT DIFFERENCE -0.6; MEAN CORPUSCULAR HEMOGLOBIN 31.2 pg (27.0-33.4); MEAN CORPUSCULAR HGB CONC 32.6 g/dL (32.0-36.0); MEAN CORPUSCULAR VOLUME 96 fl (80-97); RED BLOOD COUNT 2.88 10^6/uL (3.72-5.28); RED CELL DISTRIBUTION WIDTH 13.7 % (11.5-14.0); WHITE BLOOD COUNT 4.5 10^3/uL (4.0-10.5)
[2016-09-06 05:51] LABS: ANION GAP 6 (5-19); BLOOD UREA NITROGEN 54 mg/dL (7-20); CALCIUM 8.3 mg/dL (8.4-10.2); CARBON DIOXIDE 35 mmol/L (22-30); CHLORIDE 98 mmol/L (98-107); CREATININE RESULT 2.23 mg/dL (0.52-1.25); GLUCOSE 90 mg/dL (75-110); POTASSIUM 4.6 mmol/L (3.6-5.0); SODIUM 138.9 mmol/L (137-145)
[2016-09-06 06:01] LABS: BAND NEUTROPHILS % (MANUAL) 2 % (3-5); BASOPHILS % (MANUAL) 1 % (0-2); EOSINOPHILS % (MANUAL) 2 % (0-6); LYMPHOCYTES % (MANUAL) 14 % (13-45); TOTAL CELLS COUNTED 100
[2016-09-06 06:03] LABS: SCHISTOCYTES SLIGHT; TOXIC GRANULATION SLIGHT
[2016-09-06] MEDS: HEPARIN SOD (PORCINE) 5,000 UNIT/ML 1 ML SYRINGE SUBCUT SCH ×3 (06:04→21:29)
[2016-09-06] MEDS: ISOSORB DINIT/HYDRALAZINE HCL 20-37.5 MG TABLET PO SCH ×3 (06:04→21:27)
[2016-09-06] MEDS ORDERED: FUROSEMIDE 80 MG TABLET PO SCH (08:00)
[2016-09-06] MEDS: METOPROLOL TARTRATE 25 MG TABLET PO SCH ×2 (10:17→21:28)
[2016-09-06] MEDS: ASPIRIN 81 MG TABLET, CHEWABLE PO SCH (10:17)
[2016-09-06] MEDS: AMIODARONE HCL 200 MG TABLET PO SCH (10:18)
[2016-09-06] MEDS: ASCORBIC ACID 500 MG TABLET PO SCH (10:18)
[2016-09-06] MEDS: CYANOCOBALAMIN (VITAMIN B-12) 1,000 MCG TABLET PO SCH (10:19)
[2016-09-06] MEDS: SODIUM POLYSTYRENE SULFONATE 15 GM/60 ML PO SCH (10:19)
[2016-09-06] MEDS: GABAPENTIN 100 MG CAPSULE PO SCH ×3 (10:19→18:15)
--- NOTE | 2016-09-06 13:22 | PDOC TRANSFER SUMMARY ---
General - Admit/Disc Date/PCP Admission Date/Primary Care Provider: 09/04/16 23:24 STEFAN GÓMEZ JR, MD Discharge Date: 09/06/16 - Discharge Diagnosis (1) Delirium Is this a current diagnosis for this admission?: YesSummary: Uncertain as to the etiology for delirium however it resolved shortly after admission. (2) Acute on chronic renal failure Is this a current diagnosis for this admission?: YesSummary: Stage IV. Patient also had hyperkalemia which has resolved. (3) Congestive heart failure Is this a current diagnosis for this admission?: Yes (4) Hyperkalemia Is this a current diagnosis for this admission?: YesSummary: Resolved with Kayexalate. - Additional Information Resuscitation Status: Full Code Discharge Diet: Cardiac, Diabetic Discharge Activity: Activity As Tolerated Home Medications: Amiodarone HCl 1 tab PO DAILY 09/04/16 Ascorbic Acid [Vitamin C 500 mg Tablet] 500 mg PO DAILY 09/04/16 Aspirin [Aspirin 81 mg Chewable Tablet] 81 mg PO DAILY 09/04/16 Atorvastatin Calcium [Lipitor 10 mg Tablet] 10 mg PO QHS 09/04/16 Collagenase Clostridium Hist. [Santyl Ointment 30 gm] 1 applic TP DAILY Cyanocobalamin (Vitamin B-12) [B-12] 1,000 mcg PO DAILY 09/04/16 Diclofenac Sodium [Voltaren] 2 gm TP DAILY 09/04/16 Ergocalciferol (Vitamin D2) [Vitamin D2] 50,000 unit PO FR@1000 09/04/16 Ferrous Sulfate [Iron] 325 mg PO BID 09/04/16 Furosemide [Lasix] 40 mg PO QPM 09/04/16 Furosemide [Lasix] 80 mg PO QAM 09/04/16 Gabapentin [Neurontin 100 mg Capsule] 100 mg PO Q8 09/04/16 Glucagon,Human Recombinant [Glucagon Emergency Kit] 1 mg IJ PRN PRN 09/04/16 Insulin Lispro [Humalog Insulin (Lispro) 100 unit/mL] 0 unit SUBCUT .SLD SCALE 09/04/16 Isosorb Dinit/Hydralazine HCl [Bidil 20-37.5 mg Tablet] 0.5 tab PO Q8 09/04/16 Ketoconazole [Nizoral] 1 applic TP BID 09/04/16 Metoprolol Tartrate [Lopressor 25 mg Tablet] 25 mg PO Q12 09/04/16 Mirtazapine [Remeron 15 mg Tablet] 15 mg PO QHS 09/04/16 Multivitamin [Multivitamins] 1 each PO DAILY 09/04/16 Omeprazole 20 mg PO DAILY 09/04/16 Oxycodone HCl [Oxycodone HCl 10 MG Tablet] 10 mg PO TIDP PRN 09/04/16 Zinc Sulfate [Zinc-220 Capsule] 220 mg PO DAILY 09/04/16 Guaifenesin [Robitussin Syrup 200 mg/10 ml Ud Cup] 200 mg PO Q4HP PRN 09/05/16 History of Present Illness Admission Date/PCP: 09/04/16 23:24 STEFAN GÓMEZ JR, MD History of Present Illness: ANGELIKA SHAFFER is a 76 year old female who is a retirement resident who is unable to provide history given delirium who was noted by retirement staff to be short of breath and brought to the emergency room for evaluation where she's found to be in congestive heart failure, acute on chronic kidney failure, hyperkalemia, delirium and with an obvious history of morbid obesity and chronic lower extremity venous stasis. She receives oxygen and IV Lasix and referred to the hospitalist for admission. Patient is currently more awake and communicating better from description above compared to last night. However the patient is a poor historian and really could not tell me much of her medical history including why she was sent here in the hospital. Currently she denies any shortness of breath, chest pains, nausea, vomiting, and diarrhea. She tells me she only has chronic back pain and currently feeling fine. She did not notice any change in her appetite for the last few days. She however told me that she knows that she is swollen today more than usual. In terms of her chronic kidney disease she tells me that she has had kidney problems before but has not seen a candle molder machine in the past. So I went ahead and called her daughter, Ms. Siomara Palacios and spoke to her over the phone about the patient's history. Mrs. Palacios told me that the patient has had 2 episodes of pneumonia in 2015. She was hospitalized in April at [facility] for congestive heart failure, renal failure, and dehydration. She was discharged to rehabilitation in [place] and transferred to [facility] [place] and stayed there for 30 days. She went home briefly on June 15 and after a couple of days she went back at [facility] for another episode of pneumonia. Posthospitalization she was then sent to [facility]. The daughter said that a friend of hers visited the patient 2 days ago Saturday and patient was noted to be somnolent and nodding her head off. Subsequently yesterday she was sent by [facility] [place]note 2] to the emergency room due to delirium and shortness of breath as of stated above. Daughter said that the patient has a chairperson anesthesiology in [place], Dr. Ozuna. 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 Daughter related that patient had history of renal failure secondary to dehydration but she has never seen a candle molder machine. Daughter also confirmed that the patient did have episodes of hyperkalemia last year. Hospital Course Hospital Course: Patient presented with confusion and hyperkalemia. The patient is resident at [facility]. There was concerned this may be related to her underlying congestive heart failure however she has had improvement in her mental status and she is no longer confused at all. There was concern because a blood culture showed positive initially however the final is growing out staph epi. It's felt this is a contaminant. Patient was seen by Dr. Ennis of nephrology because of her chronic renal failure and hyperkalemia. The patient has done well and is euvolemic and her potassium has returned to normal. She did receive Kayexalate. Patient was taken potassium as an outpatient which has been stopped. Patient is back to her baseline and she sent back to [facility] for continued rehabilitation. Physical Exam Vital Signs: Temp Pulse Resp BP Pulse Ox 98.7 F 79 20 110/93 H 90 L 09/06/16 11:15 09/06/16 11:15 09/06/16 11:15 09/06/16 11:15 09/06/16 11:15 Intake & Output 09/05/16 09/06/16 09/07/16 06:59 06:59 06:59 Intake Total 6 758 Output Total 800 1175 Balance -794 -417 Weight 127.6 kg 129.6 kg General appearance: PRESENT: no acute distress Eye exam: PRESENT: conjunctiva pink. ABSENT: scleral icterus Mouth exam: PRESENT: moist, tongue midline Neck exam: ABSENT: carotid bruit, JVD, lymphadenopathy, thyromegaly Respiratory exam: PRESENT: clear to auscultation julia. ABSENT: rales, rhonchi, wheezes Cardiovascular exam: PRESENT: RRR. ABSENT: diastolic murmur, rubs, systolic murmur GI/Abdominal exam: PRESENT: normal bowel sounds, soft. ABSENT: distended, guarding, mass, organolmegaly, rebound, tenderness Extremities exam: PRESENT: pedal edema - Trace pedal edema.. ABSENT: calf tenderness, clubbing Neurological exam: PRESENT: alert, awake, oriented to person, oriented to place , oriented to time, oriented to situation, CN II-XII grossly intact. ABSENT: motor sensory deficit Psychiatric exam: PRESENT: appropriate affect Skin exam: PRESENT: dry, intact, warm. ABSENT: cyanosis, rash Results Laboratory Results: 09/06/16 04:57 09/06/16 04:57 09/05/16 09/05/16 09/06/16 18:15 20:05 04:57 WBC 4.5 RBC 2.88 L Hgb 9.0 L Hct 27.6 L MCV 96 MCH 31.2 MCHC 32.6 RDW 13.7 Plt Count 148 L Seg Neutrophils % Not Reportable Lymphocytes % Not Reportable Monocytes % Not Reportable Eosinophils % Not Reportable Basophils % Not Reportable Absolute Neutrophils Not Reportable Absolute Lymphocytes Not Reportable Absolute Monocytes Not Reportable Absolute Eosinophils Not Reportable Absolute Basophils Not Reportable Sodium Cancelled 138.6 Potassium Cancelled 5.1 H Chloride Cancelled 97 L Carbon Dioxide Cancelled 36 H Anion Gap Cancelled 6 BUN Cancelled 53 H Creatinine Cancelled 2.42 H Est GFR ( Amer) Cancelled 23 L Est GFR (Non-Af Amer) Cancelled 19 L Glucose Cancelled 151 H Calcium Cancelled 8.8 09/06/16 04:57 WBC RBC Hgb Hct MCV MCH MCHC RDW Plt Count Seg Neutrophils % Lymphocytes % Monocytes % Eosinophils % Basophils % Absolute Neutrophils Absolute Lymphocytes Absolute Monocytes Absolute Eosinophils Absolute Basophils Sodium 138.9 Potassium 4.6 Chloride 98 Carbon Dioxide 35 H Anion Gap 6 BUN 54 H Creatinine 2.23 H Est GFR ( Amer) 26 L Est GFR (Non-Af Amer) 21 L Glucose 90 Calcium 8.3 L Impressions: Chest X-Ray 09/04/16 15:26 IMPRESSION: Findings are consistent with vascular congestion. Renal Ultrasound 09/06/16 00:00 IMPRESSION: No hydronephrosis. Cholelithiasis. Transfer Plan - Disposition Transfer Plan: Patient transferred back to [facility] to continue with rehabilitation. - Time Spent with Patient Time spent with patient: Less than 30 Minutes Qualifiers PATEINT BEING DISCHARGED WITH ANY OF THE FOLLOWING DIAGNOSIS?: No Plan Discharge Plan: We'll transfer back to [facility] for continued rehabilitation. Time Spent: Less than 30 Minutes
[2016-09-06] MEDS: TRAMADOL HCL 50 MG TABLET PO PRN (18:12)
[2016-09-06] MEDS: FUROSEMIDE 40 MG TABLET PO SCH (18:15)
[2016-09-06 20:46] VITALS: BP 130/67
[2016-09-06] MEDS: INSULIN REG, HUMAN 100 UNIT/ML 3 ML VIAL (PYX) SUBCUT PRN (21:28)
[2016-09-06] MEDS: ATORVASTATIN CALCIUM 10 MG TABLET PO SCH (21:28)
[2016-09-06] MEDS: MIRTAZAPINE 15 MG TABLET PO SCH (21:28)
[2016-09-07] MEDS ORDERED: ERGOCALCIFEROL (VITAMIN D2) 50000 UNIT (1.25 MG) CAPSULE PO SCH (10:00)
== END 2016-09-06 23:15 | DRG 291 ==
LOC: ER 14:37 → EH 23:24 → 4S 09-05 02:21
PROVIDERS: ADMIT Internal Medicine; ATTEND Internal Medicine
DX: I13.0 Hypertensive heart and chronic kidney disease with heart failure and stage 1 through stage 4 chronic kidney disease, or unspecified chronic kidney disease (principal); G93.40 Encephalopathy, unspecified; N18.4 Chronic kidney disease, stage 4 (severe); N17.9 Acute kidney failure, unspecified; Z68.42 Body mass index [BMI] 45.0-49.9, adult; E87.5 Hyperkalemia; I50.9 Heart failure, unspecified; R41.0 Disorientation, unspecified; E11.22 Type 2 diabetes mellitus with diabetic chronic kidney disease; E66.01 Morbid (severe) obesity due to excess calories; Z79.4 Long term (current) use of insulin; Z95.0 Presence of cardiac pacemaker
CPT/HCPCS: 36415; 71010; 76770; 80048; 80053; 81001; 82550; 82553; 82962; 83880; 84443; 84484; 85025; 87040; 87077; 87186; 93005; 93010; 94640; 96365; 96375; 96376; 99291; 99292; J0610; J1644; J1815; J1940; J3490; J7620

== ENCOUNTER → 2016-09-10 | Outpatient (CLI) | payer MEDICARE, OTHER | LOC: PNR 11:18 | PROVIDERS: ATTEND Internal Medicine | DX: Z53.9 Procedure and treatment not carried out, unspecified reason (principal) ==

== ENCOUNTER 2016-09-11 19:19 | Inpatient (IN) | payer MEDICARE, OTHER ==
--- NOTE | 2016-09-11 20:46 | ER Document Report ---
ED General - General Stated Complaint: ALTERED MENTAL STATUS Notes: Patient is a 76-year-old female presents from her [facility] with increasing somnolence. Patient herself states that she feels "fine" and only complains of mild dysuria. She was recently discharged from the hospital for severe hyperkalemia will not had any additional symptoms since that time per her report. Admits that she has felt quite tired but denies any additional symptoms. Nothing improves or worsens or fatigue. She has not seen her primary care doctor regarding today's concerns but was referred from her [facility] due to their concern of confusion. TRAVEL OUTSIDE OF THE [place] IN LAST 30 DAYS: No - Related Data Allergies/Adverse Reactions: cefadroxil [From Duricef] Allergy (Verified 09/04/16 22:56) celecoxib [From Celebrex] Allergy (Verified 09/04/16 22:56) Sulfa (Sulfonamide Antibiotics) Allergy (Verified 09/04/16 22:56) Past Medical History - General Information source: Patient - Social History Smoking Status: Never Smoker Frequency of alcohol use: None Drug Abuse: None Lives with: Detention Family History: Other - Unobtainable - Past Medical History Cardiac Medical History: Reports: Hx Congestive Heart Failure, Hx Hypertension Neurological Medical History: Reports: Hx Cerebrovascular Accident Endocrine Medical History: Reports: Hx Diabetes Mellitus Type 2 Renal/ Medical History: Reports: Hx Renal Insufficiency Musculoskeltal Medical History: Reports Hx Arthritis Psychiatric Medical History: Reports: Hx Depression Past Surgical History: Reports: Hx Orthopedic Surgery, Hx Pacemaker - 12/06/2015 Review of Systems - Review of Systems Notes: Constitutional: Negative for fever. HENT: Negative for sore throat. Eyes: Negative for visual changes. Cardiovascular: Negative for chest pain. Respiratory: Negative for shortness of breath. Gastrointestinal: Negative for abdominal pain, vomiting or diarrhea. Genitourinary: Positive for dysuria. Musculoskeletal: Negative for back pain. Skin: Negative for rash. Neurological: Negative for headaches, weakness or numbness. 10 point ROS negative except as marked above and in HPI. Physical Exam - Vital signs Vitals: Temp 97.4 F 09/11/16 19:27 Interpretation: Normal Notes: PHYSICAL EXAMINATION: GENERAL: Mild somnolence but no acute distress. HEAD: Atraumatic, normocephalic. EYES: Pupils equal round and reactive to light, extraocular movements intact, sclera anicteric, conjunctiva are normal. ENT: nares patent, oropharynx clear without exudates. Moderately dry mucous membranes. NECK: Normal range of motion, supple without lymphadenopathy LUNGS: Breath sounds clear to auscultation bilaterally and equal. No wheezes rales or rhonchi. HEART: Regular rate and rhythm without murmurs ABDOMEN: Soft, nontender, normoactive bowel sounds. No guarding, no rebound. No masses appreciated. EXTREMITIES: Normal range of motion, no pitting or edema. No cyanosis. NEUROLOGICAL: No focal neurological deficits. Moves all extremities spontaneously and on command. PSYCH: Normal mood, normal affect. SKIN: Warm, Dry, normal turgor, no rashes or lesions noted. Course - Re-evaluation Re-evalutation: 09/11/16 20:45 Patient presents with increased fatigue, and reports of altered mental status per EMS although she is alert and oriented 4, answering all questions appropriately to me. She does seem to be slightly lethargic but does sit up in bed and answer all of my questions without difficulty or delay. She has no complaints at the time of my assessment. Apparently she was diagnosed as having a urinary tract infection although [facility] has not started her antibiotics in the past 4 days. Will obtain basic laboratories, urinalysis , chest x-ray given her persistent cough and recent hospitalization, and reassess. 09/11/16 23:39 Patient's laboratories demonstrate a worsening chronic kidney disease with superimposed acute kidney injury and again an escalation of her potassium back to 5.5 now. Patient's urinalysis shows findings consistent with pyelonephritis and I suspect that her worsening renal function is likewise due to her infection. She will require admission. Dr. Jon has been paged 09/12/16 04:34 Patient continues to be stable, no distress. Awaiting to be able to admit this patient. will cover until accepted. - Vital Signs Vital signs: Temp Pulse Resp BP Pulse Ox 97.4 F 19 104/56 L 99 09/11/16 19:27 09/12/16 03:01 09/12/16 03:01 09/12/16 03:00 - Laboratory Result Diagrams: 09/11/16 22:52 09/11/16 22:52 Laboratory results interpreted by me: 09/11/16 09/11/16 09/11/16 20:52 22:52 22:52 RBC 3.38 L Hgb 10.5 L Hct 32.8 L Plt Count 138 L Band Neutrophils % 7 H Lymphocytes % (Manual) 11 L Potassium 5.5 H Chloride 96 L Carbon Dioxide 36 H BUN 61 H Creatinine 3.18 H Est GFR ( Amer) 17 L Est GFR (Non-Af Amer) 14 L Glucose 112 H Albumin 3.4 L Urine Protein 100 H Urine Blood LARGE H Ur Leukocyte Esterase LARGE H Urine Ascorbic Acid 40 H - Diagnostic Test Radiology reviewed: Image reviewed, Reports reviewed Radiology results interpreted by me: 09/12/16 02:46 Chest x-ray: Bibasilar atelectasis - EKG Interpretation by Me Additional EKG results interpreted by me: 09/12/16 02:44 Ventricular paced rhythm. Rate 62 Discharge - Discharge Clinical Impression: Acute on chronic renal failure, Pyelonephritis, Hyperkalemia Condition: Fair Disposition: ADMITTED INPATIENT Admitting Provider: Hospitalist Unit Admitted: Telemetry
[2016-09-11 21:18] LABS: APPEARANCE,URINE CLOUDY; BILIRUBIN,URINE NEGATIVE (NEGATIVE); GLUCOSE, URINE NEGATIVE (NEGATIVE); KETONES,URINE NEGATIVE (NEGATIVE); LEUKOCYTE ESTERASE,URINE LARGE (NEGATIVE); NITRITE,URINE NEGATIVE (NEGATIVE); PROTEIN,URINE 100 mg/dL (NEGATIVE); URINE SPECIFIC GRAVITY 1.011; UROBILINOGEN,URINE NEGATIVE mg/dL (<2.0)
--- NOTE | 2016-09-11 22:01 | EKG REPORT ---
SEVERITY:- ABNORMAL ECG - ATRIAL-SENSED VENTRICULAR-PACED COMPLEXES : Confirmed by: Bina Valencia MD 11-Sep-2016 22:01:00
[2016-09-11] MEDS ORDERED: CIPROFLOXACIN HCL 500 MG TABLET PO ONE (22:29)
[2016-09-11 23:05] LABS: HEMATOCRIT 32.8 % (36.0-47.0); HEMOGLOBIN 10.5 g/dL (12.0-15.5); HGB HCT DIFFERENCE -1.3; MEAN CORPUSCULAR VOLUME 97 fl (80-97); RED BLOOD COUNT 3.38 10^6/uL (3.72-5.28); RED CELL DISTRIBUTION WIDTH 13.8 % (11.5-14.0); WHITE BLOOD COUNT 5.7 10^3/uL (4.0-10.5)
[2016-09-11 23:21] LABS: ALANINE AMINOTRANSFERASE 26 U/L (9-52); ALBUMIN 3.4 g/dL (3.5-5.0); ALKALINE PHOSPHATASE 108 U/L (38-126); ANION GAP 7 (5-19); ASPARTATE AMINO TRANSFERASE 23 U/L (14-36); BILIRUBIN,TOTAL 0.5 mg/dL (0.2-1.3); BLOOD UREA NITROGEN 61 mg/dL (7-20); CALCIUM 8.9 mg/dL (8.4-10.2); CARBON DIOXIDE 36 mmol/L (22-30); CHLORIDE 96 mmol/L (98-107); CREATININE RESULT 3.18 mg/dL (0.52-1.25); GLUCOSE 112 mg/dL (75-110); POTASSIUM 5.5 mmol/L (3.6-5.0); SODIUM 139.1 mmol/L (137-145); TOTAL PROTEIN 6.6 g/dL (6.3-8.2)
[2016-09-11 23:22] LABS: BAND NEUTROPHILS % (MANUAL) 7 % (3-5); BASOPHILS % (MANUAL) 0 % (0-2); EOSINOPHILS % (MANUAL) 1 % (0-6); LYMPHOCYTES % (MANUAL) 11 % (13-45); TOTAL CELLS COUNTED 100
[2016-09-11 23:23] LABS: RBC MORPHOLOGY COMMENT NORMO-CYTIC/CHROMIC; TOXIC GRANULATION SLIGHT; TOXIC VACUOLATION PRESENT
[2016-09-11] MEDS ORDERED: LEVOFLOXACIN 750 MG/D5W RTU 150 ML IV ONE (23:36)
[2016-09-11] MEDS ORDERED: NORMAL SALINE 1000 ML 1,000 ML IV ONE (23:37)
[2016-09-12] MEDS ORDERED: NORMAL SALINE 1000 ML 1,000 ML IV PRN ×3 (04:12→22:34)
[2016-09-12] MEDS ORDERED: ACETAMINOPHEN 325 MG TABLET PO PRN (08:08)
[2016-09-12] MEDS ORDERED: DEXTROSE 40% GEL 15 GM TUBE PO PRN ×2 (08:13)
[2016-09-12] MEDS ORDERED: DEXTROSE 50%-WATER 25 GM/50 ML DISP.SYRIN IV PRN ×2 (08:13)
[2016-09-12] MEDS ORDERED: GLUCAGON,HUMAN RECOMB 1 MG INJ IM PRN (08:13)
[2016-09-12] MEDS ORDERED: PHARMACY COMMUNICATION ORDER MC SCH ×2 (08:15→10:15)
[2016-09-12 09:11] LABS: HEMATOCRIT 31.3 % (36.0-47.0); HEMOGLOBIN 10.1 g/dL (12.0-15.5); MEAN CORPUSCULAR HEMOGLOBIN 31.1 pg (27.0-33.4); MEAN CORPUSCULAR HGB CONC 32.2 g/dL (32.0-36.0); MEAN CORPUSCULAR VOLUME 97 fl (80-97); RED BLOOD COUNT 3.24 10^6/uL (3.72-5.28); RED CELL DISTRIBUTION WIDTH 13.6 % (11.5-14.0); WHITE BLOOD COUNT 5.7 10^3/uL (4.0-10.5)
[2016-09-12 09:25] LABS: ANION GAP 8 (5-19); BLOOD UREA NITROGEN 64 mg/dL (7-20); CALCIUM 8.6 mg/dL (8.4-10.2); CARBON DIOXIDE 31 mmol/L (22-30); CHLORIDE 99 mmol/L (98-107); CREATININE RESULT 3.06 mg/dL (0.52-1.25); GLUCOSE 107 mg/dL (75-110); POTASSIUM 5.5 mmol/L (3.6-5.0); SODIUM 137.6 mmol/L (137-145)
[2016-09-12 09:46] LABS: BAND NEUTROPHILS % (MANUAL) 6 % (3-5); BASOPHILS % (MANUAL) 0 % (0-2); EOSINOPHILS % (MANUAL) 5 % (0-6); LYMPHOCYTES % (MANUAL) 13 % (13-45); NUCLEATED RED BLOOD CELLS 2 /100 WBC (0); TOTAL CELLS COUNTED 100
[2016-09-12 09:51] LABS: HYPOCHROMASIA 1+; POLYCHROMASIA 1+; ROULEAUX SLIGHT
[2016-09-12] MEDS ORDERED: LEVOFLOXACIN 750 MG/D5W RTU 150 ML IV SCH (10:00)
--- NOTE | 2016-09-12 10:14 | PDOC H&P ---
History of Present Illness Admission Date/PCP: 09/12/16 04:52 Dr. mckeon at [facility] Patient complains of: Altered mental status History of Present Illness: ANGELIKA SHAFFER is a 76 year old obese female, nonambulatory for "some time now,", along with stage IV chronic kidney disease, type II diabetes mellitus, congestive heart failure, hypertension, arthritis, and depression who presents to the emergency room for evaluation of above complaint, manifested by increasing somnolence. Patient has been discussed with emergency room physician who evaluated the patient. Patient is oriented only to the fact that she is in the hospital and is able to provide no history whatsoever in terms of acute or chronic events, review of systems, personal habits, family history, etc. No friends or family are present. Old inpatient records are reviewed. Currently denies pain. No further information available this point in time. Hospitalized on our service the through the 16 of this month with final diagnoses including delirium, acute on chronic renal failure, for which she was seen by Dr. Peacock, congestive heart failure, and hyperkalemia. Copies of the history and physical and discharge summary have been reviewed.. Laboratory results are listed in [facility] and are reviewed. X-ray summary results are listed below, with full report(s) reviewed. . EKG reviewed. And compared to a tracing from the of this month. Social history/personal habits: Currently resides at [facility]. Never smoker. No further information available this point in time. Allergies/adverse reactions are listed in [facility] and are reviewed. Home medications are to be reconciled by nursing staff in [facility] from the medication administration record from [facility].. Home medications initially autopopulated into [facility] may not accurately reflect patient's true medications, dosages, and/or frequencies. REVIEW OF SYSTEMS: See history and present illness.No further information available this point in time. PHYSICAL EXAMINATION: Neither height nor weight are recorded on the chart. Temperature 97.4. Blood pressure 111/63. Pulse 61 and regular. 99% saturation on 2 L oxygen per nasal cannula. Respirations are 17 and unlabored. Obese otherwise well-developed though somewhat chronically ill appearing female who nevertheless appears perhaps a bit younger than her stated age. Slightly fatigued. Pleasant and cooperative, however. Mildly anxious, without agitation. Skin is warm and dry. No grossly obvious evidence of rash in areas of skin examined. No subcutaneous nodules palpated. Per nursing staff, stage II decubitus overlying her coccyx. Clean dry and intact opaque dressing overlying her right heel; this is left in place. ENT: Hearing grossly normal to normal conversation. Tongue midline on protrusion pink and slightly tacky. Eyes: No scleral icterus. Pupils equal and reactive to light at 4 mm. [place] conjunctivae. Neck is supple and nontender to gentle active range of motion and palpation. Midline trachea. No palpable thyroid nodule mass enlargement or tenderness. Lymphatic: No palpable cervical or clavicular nodes. Neck and lymphatic exams limited by patient body habitus. Psychiatric: Oriented only to the fact that she is in the hospital. Difficult to evaluate further due to her current mental status. Lungs: Auscultation reveals clear and equal breath sounds bilaterally. No use of accessory respiratory muscles. Cardiovascular: Heart regular rate and rhythm, without gallop murmur or rub. No carotid or abdominal aortic bruits. Very mild symmetric bilateral ankle and pedal edema. Faintly palpable dorsalis pedis pulses. Abdomen: soft, obese, nontender with positive bowel sounds. Unable to adequately evaluate abdomen for masses or organomegaly due to body habitus. Extremities: Feet are warm and dry. No calf tenderness to compression. No grossly obvious visual evidence of calf swelling. Gentle manipulation of lower extremities fails to reveal any obvious evidence of injury or instability to knees hips or ankles. Neurologic: Moves upper extremities grossly normally. Patellar reflexes absent. Absent Babinski. Light touch can't be determined due to her mental status. Dorsiflexion and plantarflexion of feet with minimal movement on either side.. Past Medical History Cardiac Medical History: Reports: Congestive Heart Failure, Hypertension Endocrine Medical History: Reports: Diabetes Mellitus Type 2 GI Medical History: Reports: Gastroesophageal Reflux Disease Musculoskeltal Medical History: Reports: Arthritis Psychiatric Medical History: Reports: Depression Hematology: Reports: Anemia Past Surgical History Past Surgical History: Reports: Orthopedic Surgery, Pacemaker - 12/06/2015 Social History Information Source: Emergency Med Personnel, [facility] Records Lives with: Long Term Smoking Status: Never Smoker Frequency of Alcohol Use: None Drugs: None - Advance Directive Resuscitation Status: Full Code Surrogate healthcare decision maker:: Uncertain at this point in time. Family History Family History: Other - Unobtainable Parental Family History Reviewed: No - No information available this point in time. Children Family History Reviewed: No - No information available this point in time. Sibling(s) Family History Reviewed.: No - No information available this point in time. Medication/Allergy Home Medications: Amiodarone HCl 1 tab PO DAILY 09/04/16 Ascorbic Acid [Vitamin C 500 mg Tablet] 500 mg PO DAILY 09/04/16 Aspirin [Aspirin 81 mg Chewable Tablet] 81 mg PO DAILY 09/04/16 Atorvastatin Calcium [Lipitor 10 mg Tablet] 10 mg PO QHS 09/04/16 Collagenase Clostridium Hist. [Santyl Ointment 30 gm] 1 applic TP DAILY Cyanocobalamin (Vitamin B-12) [B-12] 1,000 mcg PO DAILY 09/04/16 Diclofenac Sodium [Voltaren] 2 gm TP DAILY 09/04/16 Ergocalciferol (Vitamin D2) [Vitamin D2] 50,000 unit PO FR@1000 09/04/16 Ferrous Sulfate [Iron] 325 mg PO BID 09/04/16 Furosemide [Lasix] 40 mg PO QPM 09/04/16 Furosemide [Lasix] 80 mg PO QAM 09/04/16 Gabapentin [Neurontin 100 mg Capsule] 100 mg PO Q8 09/04/16 Glucagon,Human Recombinant [Glucagon Emergency Kit] 1 mg IJ PRN PRN 09/04/16 Insulin Lispro [Humalog Insulin (Lispro) 100 unit/mL] 0 unit SUBCUT .SLD SCALE 09/04/16 Isosorb Dinit/Hydralazine HCl [Bidil 20-37.5 mg Tablet] 0.5 tab PO Q8 09/04/16 Ketoconazole [Nizoral] 1 applic TP BID 09/04/16 Metoprolol Tartrate [Lopressor 25 mg Tablet] 25 mg PO Q12 09/04/16 Mirtazapine [Remeron 15 mg Tablet] 15 mg PO QHS 09/04/16 Multivitamin [Multivitamins] 1 each PO DAILY 09/04/16 Omeprazole 20 mg PO DAILY 09/04/16 Zinc Sulfate [Zinc-220 Capsule] 220 mg PO DAILY 09/04/16 Guaifenesin [Robitussin Syrup 200 mg/10 ml Ud Cup] 200 mg PO Q4HP PRN 09/05/16 Oxycodone HCl [Oxycodone HCl 10 MG Tablet] 10 mg PO TIDP PRN #30 tablet Allergies/Adverse Reactions: cefadroxil [From Duricef] Allergy (Verified 09/04/16 22:56) celecoxib [From Celebrex] Allergy (Verified 09/04/16 22:56) Sulfa (Sulfonamide Antibiotics) Allergy (Verified 09/04/16 22:56) Physical Exam Vital Signs: Temp Pulse Resp BP Pulse Ox 97.4 F 16 133/84 H 99 09/11/16 19:27 09/12/16 07:01 09/12/16 07:01 09/12/16 07:01 Results Impressions: Chest X-Ray 09/11/16 19:27 IMPRESSION: Persistent increased interstitial and hazy opacities bilaterally. Stable cardiomegaly and vascular congestion. No new dense consolidation or significant effusion. Assessment & Plan - Diagnosis (1) Acute encephalopathy Is this a current diagnosis for this admission?: YesPlan: Likely secondary to combination of worsening of her chronic kidney disease, along with underlying urinary tract infection. (2) Acute worsening of stage 4 chronic kidney disease Is this a current diagnosis for this admission?: YesPlan: IV fluid at judicious rate due to underlying congestive heart failure. Follow- up chemistry. Nephrology consult. Renal ultrasound during her recent above hospital stay. I have strongly encouraged patient [not to attempt to get out of bed , to avoid a fall with injury. Knee high SCDs for DVT prophylaxis, along with subcutaneous heparin. Impression and plans were discussed with patient, who concurs. Time spent in evaluation and management of patient: 48 minutes. (3) Hyperkalemia Is this a current diagnosis for this admission?: YesPlan: Follow-up chemistry. Nephrology consult. (4) UTI (urinary tract infection) Qualifiers: Urinary tract infection type: site unspecified Is this a current diagnosis for this admission?: YesPlan: Culture results from the of this month reveal Escherichia coli, with sensitivities noted. Aztreonam IV. (5) Congestive heart failure Qualifiers: Congestive heart failure type: unspecified congestive heart failure type Congestive heart failure chronicity: chronic Qualified Code(s): I50.9 - Heart failure, unspecified Is this a current diagnosis for this admission?: YesPlan: Clinically stable at this point in time. Resume home medications as appropriate once these have been determined and reviewed. (6) Decubitus ulcer of coccyx, stage 2 Is this a current diagnosis for this admission?: YesPlan: Innovative mattress. Turn every 2 hours. Dietary consult for wound healing. (7) Decubitus ulcer of right heel Qualifiers: Pressure ulcer stage: unspecified pressure ulcer stage Qualified Code(s): L89.619 - Pressure ulcer of right heel, unspecified stage Is this a current diagnosis for this admission?: YesPlan: Innovative mattress. Turn every 2 hours. Dietary consult for wound healing. - Inpatient Certification Based on my medical assessment, after consideration of the patient's comorbidities, presenting symptoms, or acuity I expect that the services needed warrant INPATIENT care.: Yes I certify that my determination is in accordance with my understanding of Medicare's requirements for reasonable and necessary INPATIENT services [42 CFR 412.3e].: Yes Medical Necessity: Need Close Monitoring Due to Risk of Patient Decompensation, Need For IV Fluids, Need for IV Antibiotics, Risk of Complication if Not Cared For in Hospital Post Hospital Care: D/C or Transfer Summary
[2016-09-12] MEDS: DOCUSATE SODIUM 100 MG CAPSULE PO SCH ×2 (10:17→17:07)
[2016-09-12] MEDS: HEPARIN SOD (PORCINE) 5,000 UNIT/ML 1 ML SYRINGE SUBCUT SCH ×2 (11:29→23:34)
[2016-09-12] MEDS ORDERED: AZTREONAM 1 GM in DEXTROSE 5%-WATER 50 ML IV ONE (11:30)
[2016-09-12 15:09] LABS: PATH REVIEW PATHOLOGIST REVIEWED
[2016-09-12] MEDS ORDERED: SODIUM POLYSTYRENE SULFONATE 15 GM/60 ML PO ONE (19:45)
[2016-09-12 20:52] LABS: ANION GAP 7 (5-19); BLOOD UREA NITROGEN 66 mg/dL (7-20); CALCIUM 8.4 mg/dL (8.4-10.2); CARBON DIOXIDE 33 mmol/L (22-30); CHLORIDE 99 mmol/L (98-107); CREATININE RESULT 3.31 mg/dL (0.52-1.25); GLUCOSE 150 mg/dL (75-110); POTASSIUM 5.8 mmol/L (3.6-5.0)
[2016-09-12] MEDS ORDERED: AZTREONAM INJ 1 GM VIAL IV SCH (22:00)
[2016-09-12] MEDS: AZTREONAM 0.5 GM in DEXTROSE 5%-WATER 50 ML IV SCH (23:24)
[2016-09-12] MEDS ORDERED: NORMAL SALINE 250 ML IV ONE (23:30)
[2016-09-13] MEDS ORDERED: NORMAL SALINE 1000 ML 250 ML IV ONE (00:54)
[2016-09-13 00:59] LABS: ANION GAP 8 (5-19); BLOOD UREA NITROGEN 67 mg/dL (7-20); CALCIUM 7.9 mg/dL (8.4-10.2); CARBON DIOXIDE 31 mmol/L (22-30); CHLORIDE 100 mmol/L (98-107); CREATININE RESULT 3.36 mg/dL (0.52-1.25); GLUCOSE 93 mg/dL (75-110); POTASSIUM 5.1 mmol/L (3.6-5.0); SODIUM 139.2 mmol/L (137-145)
[2016-09-13 06:11] LABS: ANION GAP 7 (5-19); BLOOD UREA NITROGEN 65 mg/dL (7-20); CALCIUM 8.1 mg/dL (8.4-10.2); CARBON DIOXIDE 32 mmol/L (22-30); CHLORIDE 100 mmol/L (98-107); CREATININE RESULT 3.32 mg/dL (0.52-1.25); GLUCOSE 120 mg/dL (75-110); POTASSIUM 4.8 mmol/L (3.6-5.0); SODIUM 139.1 mmol/L (137-145)
[2016-09-13] MEDS: DOCUSATE SODIUM 100 MG CAPSULE PO SCH ×2 (09:02→17:12)
[2016-09-13] MEDS: HEPARIN SOD (PORCINE) 5,000 UNIT/ML 1 ML SYRINGE SUBCUT SCH ×2 (09:04→23:26)
[2016-09-13] MEDS: AZTREONAM 0.5 GM in DEXTROSE 5%-WATER 50 ML IV SCH ×2 (09:04→23:27)
[2016-09-13] MEDS ORDERED: METOPROLOL TARTRATE 25 MG TABLET PO SCH ×2 (10:00→23:45)
[2016-09-13] MEDS ORDERED: (PENDING PHARMACY ID) (Ferrous Sulfate [Iron] 325 MG) PO SCH (10:00)
--- NOTE | 2016-09-13 10:25 | PDOC PROGRESS REPORT ---
Subjective Progress Note for:: 09/13/16 Subjective:: Patient is feeling better. Patient is more awake and alert and responsive as reported. No respiratory distress. The patient however has edema. Both upper and lower extremities showing pitting edema. Potassium is now normal. No nausea or vomiting. No abdominal pain. No reported chills or fever. Physical Exam Vital Signs: Temp Pulse Resp BP Pulse Ox 98.6 F 78 20 119/60 97 09/13/16 07:47 09/13/16 07:47 09/13/16 07:47 09/13/16 07:47 09/13/16 07:47 Intake & Output 09/12/16 09/13/16 09/14/16 06:59 06:59 06:59 Intake Total 1500 Balance 1500 Weight 137.5 kg General appearance: PRESENT: no acute distress, morbidly obese Head exam: PRESENT: normocephalic Eye exam: PRESENT: EOMI Mouth exam: PRESENT: moist, neck supple Neck exam: ABSENT: JVD Respiratory exam: PRESENT: unlabored. ABSENT: retraction, rhonchi, wheezes Cardiovascular exam: PRESENT: RRR. ABSENT: gallop GI/Abdominal exam: PRESENT: hypoactive bowel sounds, soft Extremities exam: PRESENT: other - Positive edema and anasarca Neurological exam: PRESENT: alert, awake, oriented to situation Skin exam: PRESENT: dry, warm. ABSENT: cyanosis Results Laboratory Results: 09/12/16 08:53 09/13/16 05:01 09/12/16 09/12/16 09/13/16 08:53 20:19 00:34 WBC 5.7 RBC 3.24 L Hgb 10.1 L Hct 31.3 L MCV 97 MCH 31.1 MCHC 32.2 RDW 13.6 Plt Count 124 L Sodium 139.0 139.2 Potassium 5.8 H 5.1 H Chloride 99 100 Carbon Dioxide 33 H 31 H Anion Gap 7 8 BUN 66 H 67 H Creatinine 3.31 H 3.36 H Est GFR ( Amer) 16 L 16 L Est GFR (Non-Af Amer) 13 L 13 L Glucose 150 H 93 Calcium 8.4 7.9 L 09/13/16 05:01 WBC RBC Hgb Hct MCV MCH MCHC RDW Plt Count Sodium 139.1 Potassium 4.8 Chloride 100 Carbon Dioxide 32 H Anion Gap 7 BUN 65 H Creatinine 3.32 H Est GFR ( Amer) 16 L Est GFR (Non-Af Amer) 13 L Glucose 120 H Calcium 8.1 L Impressions: Chest X-Ray 09/11/16 19:27 IMPRESSION: Persistent increased interstitial and hazy opacities bilaterally. Stable cardiomegaly and vascular congestion. No new dense consolidation or significant effusion. Assessment & Plan - Diagnosis (1) Acute encephalopathy Is this a current diagnosis for this admission?: Yes (2) Hyperkalemia Is this a current diagnosis for this admission?: Yes (3) UTI (urinary tract infection) Qualifiers: Urinary tract infection type: site unspecified Is this a current diagnosis for this admission?: Yes (4) Anemia Qualifiers: Anemia type: unspecified type Qualified Code(s): D64.9 - Anemia, unspecified Is this a current diagnosis for this admission?: Yes (5) Acute worsening of stage 4 chronic kidney disease Is this a current diagnosis for this admission?: Yes (6) Congestive heart failure Qualifiers: Congestive heart failure type: unspecified congestive heart failure type Congestive heart failure chronicity: chronic Qualified Code(s): I50.9 - Heart failure, unspecified Is this a current diagnosis for this admission?: Yes (7) Hypertension Qualifiers: Hypertension type: essential hypertension Qualified Code(s): I10 - Essential (primary) hypertension Is this a current diagnosis for this admission?: Yes (8) Obesity Qualifiers: Obesity severity: unspecified obesity severity Is this a current diagnosis for this admission?: Yes (9) Diabetes mellitus type 2 in obese Is this a current diagnosis for this admission?: Yes (10) History of stroke Is this a current diagnosis for this admission?: Yes - Time Time Spent with patient: 25-34 minutes - Plan Summary Plan Summary: Continue antibiotics for urinary tract infection. I will put the IV fluid to KVO and begin diuretics with home Lasix. We will add Zaroxolyn. Awaiting nephrology evaluation. Continue supportive care.
[2016-09-13] MEDS ORDERED: METOLAZONE 5 MG TABLET PO ONE (10:30)
[2016-09-13] MEDS: ZINC SULFATE 220 MG CAPSULE PO SCH (10:36)
[2016-09-13] MEDS: FERROUS SULFATE 325 MG TABLET PO SCH ×2 (10:37→17:13)
[2016-09-13] MEDS: AMIODARONE HCL 200 MG TABLET PO SCH (10:37)
[2016-09-13] MEDS: ASPIRIN 81 MG TABLET, CHEWABLE PO SCH (10:37)
[2016-09-13] MEDS: COLLAGENASE CLOSTRIDIUM HIST. OINT 30 GM TP SCH (10:38)
[2016-09-13] MEDS: ASCORBIC ACID 500 MG TABLET PO SCH (10:38)
[2016-09-13] MEDS: INSULIN LISPRO 100 UNIT/ML 3 ML VIAL SUBCUT PRN ×2 (13:33→17:13)
[2016-09-13] MEDS ORDERED: ISOSORB DINIT/HYDRALAZINE HCL 20-37.5 MG TABLET PO SCH ×2 (14:00→23:45)
[2016-09-13] MEDS ORDERED: FUROSEMIDE 40 MG TABLET PO SCH (18:00)
--- NOTE | 2016-09-13 19:55 | PDOC CONSULTATION ---
Consultation Consult Date: 09/13/16 Consult reason:: Acute on chronic kidney disease stage IV. History of Present Illness Admission Date/PCP: 09/12/16 08:08 History of Present Illness: Mrs. Danielle Cruz is a 76 years old lady with a past medical history of significant morbid obesity, diverticulitis type II, hypertension, heart failure was recently admitted if couple of weeks ago with acute delirium and had been discharged to rehabilitation with a creatinine of 2.2 comes in with history of altered mental status again. She is unable to give any proper history during admission. She is a bit more awake and and alert but still unable to give you any exacting details. Currently she states she is doing pretty good. She has some shortness of breath but denies any history of chest pain. She denies any history of fever chills. She does not recall having history of any sleep apnea. She does not have any oxygen at home. Admission labs that show creatinine of 3.2 with a potassium of 5.8. Dr. Jon , the hospitalist discussed her case with me last night and have started on appropriate measures including treating a potassium, which today is as become normal. Past Medical History Cardiac Medical History: Reports: Atrial Fibrillation, CHF-Systolic, Hypertension-primary Endocrine Medical History: Reports: Diabetes Mellitus Type 2, Obesity Renal/ Medical History: Reports: Chronic Kidney Disease Stage IV, Hyperkalemia GI Medical History: Reports: Gastroesophageal Reflux Disease Musculoskeltal Medical History: Reports: Arthritis Psychiatric Medical History: Denies: Depression Hematology Medical History: Reports Iron Deficiency Anemia, Reports B12 Deficiency Anemia Past Surgical History Past Surgical History: Reports: Orthopedic Surgery, Pacemaker - 12/06/2015 Social History Lives with: Longterm Smoking Status: Never Smoker Frequency of Alcohol Use: None Hx Recreational Drug Use: No Drugs: None - Advance Directive Resuscitation Status: Full Code Family History Parental Family History Reviewed: Yes - negative for ESRD Children Family History Reviewed: No Sibling(s) Family History Reviewed.: No Medication/Allergy Home Medications: Amiodarone HCl 1 tab PO DAILY 09/04/16 Ascorbic Acid [Vitamin C 500 mg Tablet] 500 mg PO DAILY 09/04/16 Aspirin [Aspirin 81 mg Chewable Tablet] 81 mg PO DAILY 09/04/16 Atorvastatin Calcium [Lipitor 10 mg Tablet] 10 mg PO QHS 09/04/16 Collagenase Clostridium Hist. [Santyl Ointment 30 gm] 1 applic TP DAILY Cyanocobalamin (Vitamin B-12) [B-12] 1,000 mcg PO DAILY 09/04/16 Diclofenac Sodium [Voltaren] 2 gm TP DAILY 09/04/16 Ergocalciferol (Vitamin D2) [Vitamin D2] 50,000 unit PO FR@1000 09/04/16 Ferrous Sulfate [Iron] 325 mg PO BID 09/04/16 Furosemide [Lasix] 40 mg PO QPM 09/04/16 Furosemide [Lasix] 80 mg PO QAM 09/04/16 Gabapentin [Neurontin 100 mg Capsule] 100 mg PO Q8 09/04/16 Glucagon,Human Recombinant [Glucagon Emergency Kit] 1 mg IJ PRN PRN 09/04/16 Insulin Lispro [Humalog Insulin (Lispro) 100 unit/mL] 0 unit SUBCUT .SLD SCALE 09/04/16 Isosorb Dinit/Hydralazine HCl [Bidil 20-37.5 mg Tablet] 0.5 tab PO Q8 09/04/16 Ketoconazole [Nizoral] 1 applic TP BID 09/04/16 Metoprolol Tartrate [Lopressor 25 mg Tablet] 25 mg PO Q12 09/04/16 Mirtazapine [Remeron 15 mg Tablet] 15 mg PO QHS 09/04/16 Multivitamin [Multivitamins] 1 each PO DAILY 09/04/16 Omeprazole 20 mg PO DAILY 09/04/16 Zinc Sulfate [Zinc-220 Capsule] 220 mg PO DAILY 09/04/16 Guaifenesin [Robitussin Syrup 200 mg/10 ml Ud Cup] 200 mg PO Q4HP PRN 09/05/16 Oxycodone HCl [Oxycodone HCl 10 MG Tablet] 10 mg PO TIDP PRN #30 tablet Allergies/Adverse Reactions: cefadroxil [From Duricef] Allergy (Verified 09/04/16 22:56) celecoxib [From Celebrex] Allergy (Verified 09/04/16 22:56) Sulfa (Sulfonamide Antibiotics) Allergy (Verified 09/04/16 22:56) Review of Systems Review of Systems: Constitutional: [PRESENT: as per HPI. ABSENT: chills, fever(s), headache(s), weight gain, weight loss] Eyes: [ABSENT: visual disturbances] Ears: [ABSENT: hearing changes] Cardiovascular: [ABSENT: chest pain, orthropnea, palpitations] Respiratory: [ABSENT: cough, hemoptysis] Gastrointestinal: [ABSENT: abdominal pain, constipation, diarrhea, hematemesis, hematochezia, nausea, vomiting] Genitourinary: [ABSENT: dysuria, hematuria] Musculoskeletal: [ABSENT: joint swelling] Integumentary: [ABSENT: rash, wounds] Neurological: [ABSENT: abnormal gait, dizziness, focal weakness, syncope] Psychiatric: [ABSENT: anxiety, depression, homicidal ideation, suicidal ideation ] Endocrine: [ABSENT: cold intolerance, heat intolerance, polydipsia, polyuria] Hematologic/Lymphatic: [ABSENT: easy bleeding, easy bruising, lymphadenopathy] Physical Exam Vital Signs: Temp Pulse Resp BP Pulse Ox 97.6 F 70 24 H 121/50 L 90 L 09/13/16 15:51 09/13/16 15:51 09/13/16 11:40 09/13/16 15:51 09/13/16 15:51 Intake & Output 09/12/16 09/13/16 09/14/16 06:59 06:59 06:59 Intake Total 1500 646 Balance 1500 646 Weight 137.5 kg General appearance: PRESENT: mild distress, obese Eye exam: PRESENT: conjunctiva pink, EOMI, PERRLA. ABSENT: periorbital swelling , scleral icterus Mouth exam: PRESENT: moist, neck supple Neck exam: ABSENT: lymphadenopathy, meningismus, tenderness, thyromegaly, tracheal deviation Respiratory exam: PRESENT: clear to auscultation julia, symmetrical. ABSENT: crackles, rhonchi Cardiovascular exam: PRESENT: +S1, +S2, systolic murmur GI/Abdominal exam: PRESENT: soft. ABSENT: distended, firm, mass, renal bruit, tenderness Extremities exam: PRESENT: +1 edema Neurological exam: PRESENT: awake, oriented to place Psychiatric exam: PRESENT: flat affect Skin exam: PRESENT: erythema, mottled, rash, skin tears, warm Results Laboratory Results: 09/12/16 08:53 09/13/16 05:01 09/12/16 09/13/16 09/13/16 20:19 00:34 05:01 Sodium 139.0 139.2 139.1 Potassium 5.8 H 5.1 H 4.8 Chloride 99 100 100 Carbon Dioxide 33 H 31 H 32 H Anion Gap 7 8 7 BUN 66 H 67 H 65 H Creatinine 3.31 H 3.36 H 3.32 H Est GFR ( Amer) 16 L 16 L 16 L Est GFR (Non-Af Amer) 13 L 13 L 13 L Glucose 150 H 93 120 H Calcium 8.4 7.9 L 8.1 L Impressions: Chest X-Ray 09/11/16 19:27 IMPRESSION: Persistent increased interstitial and hazy opacities bilaterally. Stable cardiomegaly and vascular congestion. No new dense consolidation or significant effusion. Assessment & Plan - Diagnosis (1) Acute on chronic renal failure Plan: She obviously has ATN from UTI and has worsening of renal functions. She is also fluid overloaded which is compounded by the fact that she has congestive heart failure with possible predominant right heart failure. I tried to look at old echocardiograms but couldn't find any. I wonder if she is a very poor study in the past given her morbid obesity. We'll make changes in her diuretic regimen and see how she responds. Indications for renal replacement currently. Did have a renal ultrasound from last admission which I reviewed. She needs to have Wayne catheter which I discussed with the nurse. (2) Diabetes mellitus type 2 in obese Is this a current diagnosis for this admission?: YesPlan: Would need tight blood sugar control and would leave it to the hospitalist. (3) Hyperkalemia Plan: Stable. (4) Anemia Qualifiers: Anemia type: unspecified type Qualified Code(s): D64.9 - Anemia, unspecified Is this a current diagnosis for this admission?: YesPlan: Monitor. (5) Congestive heart failure Qualifiers: Congestive heart failure type: unspecified congestive heart failure type Congestive heart failure chronicity: chronic Qualified Code(s): I50.9 - Heart failure, unspecified Is this a current diagnosis for this admission?: YesPlan: Discussed earlier. See how she responds to changing in her diuretic regimen. (6) Obesity Qualifiers: Obesity severity: unspecified obesity severity Is this a current diagnosis for this admission?: Yes (7) Escherichia coli urinary tract infection Plan: On antibiotics and I will leave it to the hospitalist.
[2016-09-13] MEDS: NORMAL SALINE 1000 ML 1,000 ML IV PRN (20:09)
[2016-09-13] MEDS ORDERED: FUROSEMIDE INJ/PF 40 MG/4 ML SDV IV SCH ×2 (22:00→23:45)
[2016-09-13] MEDS ORDERED: MIRTAZAPINE 15 MG TABLET PO SCH (22:00)
[2016-09-14] MEDS ORDERED: METOPROLOL TARTRATE 25 MG TABLET PO SCH (02:30)
[2016-09-14] MEDS: ISOSORB DINIT/HYDRALAZINE HCL 20-37.5 MG TABLET PO SCH ×2 (05:32→13:08)
[2016-09-14] MEDS: FUROSEMIDE INJ/PF 40 MG/4 ML SDV IV SCH ×2 (06:41→13:09)
[2016-09-14 06:44] LABS: ANION GAP 10 (5-19); BLOOD UREA NITROGEN 68 mg/dL (7-20); CALCIUM 8.8 mg/dL (8.4-10.2); CARBON DIOXIDE 31 mmol/L (22-30); CHLORIDE 99 mmol/L (98-107); CREATININE RESULT 3.75 mg/dL (0.52-1.25); GLUCOSE 156 mg/dL (75-110); POTASSIUM 4.8 mmol/L (3.6-5.0); SODIUM 139.8 mmol/L (137-145)
[2016-09-14] MEDS ORDERED: FUROSEMIDE 80 MG TABLET PO SCH (08:00)
[2016-09-14] MEDS: INSULIN LISPRO 100 UNIT/ML 3 ML VIAL SUBCUT PRN ×2 (09:02→12:34)
[2016-09-14] MEDS ORDERED: SUCCINYLCHOLINE CHLORIDE INJ 200 MG/10 ML VIAL ONE (09:40)
[2016-09-14] MEDS ORDERED: METOLAZONE 5 MG TABLET PO SCH (10:00)
[2016-09-14] MEDS: HEPARIN SOD (PORCINE) 5,000 UNIT/ML 1 ML SYRINGE SUBCUT SCH (10:03)
[2016-09-14] MEDS: ZINC SULFATE 220 MG CAPSULE PO SCH (10:05)
[2016-09-14] MEDS: AMIODARONE HCL 200 MG TABLET PO SCH (10:05)
[2016-09-14] MEDS: FERROUS SULFATE 325 MG TABLET PO SCH ×2 (10:06→17:14)
[2016-09-14] MEDS: DOCUSATE SODIUM 100 MG CAPSULE PO SCH ×2 (10:06→17:14)
[2016-09-14] MEDS: ASCORBIC ACID 500 MG TABLET PO SCH (10:06)
[2016-09-14] MEDS: ASPIRIN 81 MG TABLET, CHEWABLE PO SCH (10:07)
[2016-09-14] MEDS: COLLAGENASE CLOSTRIDIUM HIST. OINT 30 GM TP SCH (10:08)
--- NOTE | 2016-09-14 10:20 | PDOC PROGRESS REPORT ---
Subjective Progress Note for:: 09/14/16 Subjective:: Patient evaluated by nephrology service. Diuretic has been adjusted. Patient is more awake and alert and responsive than on presentation No respiratory distress. The patient however has edema and overload. Both upper and lower extremities showing pitting edema. Potassium is now normal. No nausea or vomiting. No abdominal pain. No reported chills or fever. Patient reports she is well. Wayne catheter placed last night. Physical Exam Vital Signs: Temp Pulse Resp BP Pulse Ox 97.4 F 59 L 22 H 122/51 L 95 09/14/16 04:00 09/14/16 07:48 09/14/16 07:48 09/14/16 07:48 09/14/16 07:48 Intake & Output 09/13/16 09/14/16 09/15/16 06:59 06:59 06:59 Intake Total 1500 1576 Output Total 550 Balance 1500 1026 Weight 137.5 kg 139.4 kg General appearance: PRESENT: no acute distress, cooperative, morbidly obese Head exam: PRESENT: normocephalic Eye exam: PRESENT: EOMI Mouth exam: PRESENT: moist, neck supple Respiratory exam: PRESENT: clear to auscultation julia, unlabored. ABSENT: wheezes Cardiovascular exam: PRESENT: RRR. ABSENT: gallop GI/Abdominal exam: PRESENT: distended - Obese, soft. ABSENT: tenderness Extremities exam: PRESENT: +2 edema - Both upper and lower extremities Neurological exam: PRESENT: alert, awake, other - Appropriately responsive to questions Skin exam: PRESENT: dry, warm. ABSENT: cyanosis Results Laboratory Results: 09/12/16 08:53 09/14/16 05:44 09/14/16 05:44 Sodium 139.8 Potassium 4.8 Chloride 99 Carbon Dioxide 31 H Anion Gap 10 BUN 68 H Creatinine 3.75 H Est GFR ( Amer) 14 L Est GFR (Non-Af Amer) 12 L Glucose 156 H Calcium 8.8 Impressions: Chest X-Ray 09/11/16 19:27 IMPRESSION: Persistent increased interstitial and hazy opacities bilaterally. Stable cardiomegaly and vascular congestion. No new dense consolidation or significant effusion. Assessment & Plan - Diagnosis (1) Acute encephalopathy Is this a current diagnosis for this admission?: Yes (2) Hyperkalemia Is this a current diagnosis for this admission?: Yes (3) UTI (urinary tract infection) Qualifiers: Urinary tract infection type: site unspecified Is this a current diagnosis for this admission?: Yes (4) Anemia Qualifiers: Anemia type: unspecified type Qualified Code(s): D64.9 - Anemia, unspecified Is this a current diagnosis for this admission?: Yes (5) Acute worsening of stage 4 chronic kidney disease Is this a current diagnosis for this admission?: Yes (6) Congestive heart failure Qualifiers: Congestive heart failure type: unspecified congestive heart failure type Congestive heart failure chronicity: chronic Qualified Code(s): I50.9 - Heart failure, unspecified Is this a current diagnosis for this admission?: Yes (7) Hypertension Qualifiers: Hypertension type: essential hypertension Qualified Code(s): I10 - Essential (primary) hypertension Is this a current diagnosis for this admission?: Yes (8) Obesity Qualifiers: Obesity severity: unspecified obesity severity Is this a current diagnosis for this admission?: Yes (9) Diabetes mellitus type 2 in obese Is this a current diagnosis for this admission?: Yes (10) History of stroke Is this a current diagnosis for this admission?: Yes - Time Time Spent with patient: 25-34 minutes - Plan Summary Plan Summary: Creatinine increased today. We will recheck it in the morning. Continue diuretics and monitoring input and output. Recheck electrolytes. We will complete 3 days of antibiotics and discontinue for a urinary tract infection. We will hold discharge plans for now.
[2016-09-14] MEDS: AZTREONAM 0.5 GM in DEXTROSE 5%-WATER 50 ML IV SCH (10:26)
[2016-09-14 14:13] LABS: ARTERIAL BLOOD BASE EXCESS 0.1 mmol/L
--- NOTE | 2016-09-14 16:02 | PDOC PROGRESS REPORT ---
Subjective Progress Note for:: 09/14/16 Subjective:: Patient was seen in the hospital today. She seems to gotten worse over the last 24 hours. She has become more lethargic. Blood gas was drawn earlier which is which has shown that she is retaining CO2.She has since then been put on on a BiPAP. I was able to wake her up by shaking. She says she is somewhat better since she has been on the BiPAP. Her breathing is somewhat more easier. She denies any history of chest pain palpitations fever chills. I also discussed the case with the treating nurse. Physical Exam Vital Signs: Temp Pulse Resp BP Pulse Ox 97.4 F 60 20 114/47 L 94 09/14/16 04:00 09/14/16 14:00 09/14/16 14:58 09/14/16 11:55 09/14/16 12:00 Intake & Output 09/13/16 09/14/16 09/15/16 06:59 06:59 06:59 Intake Total 1500 1576 Output Total 550 Balance 1500 1026 Weight 137.5 kg 139.4 kg General appearance: PRESENT: mild distress Respiratory exam: PRESENT: clear to auscultation julia, decreased breath sounds. ABSENT: crackles, rhonchi Cardiovascular exam: PRESENT: +S1, +S2, systolic murmur GI/Abdominal exam: PRESENT: soft. ABSENT: distended, firm, mass, renal bruit, tenderness Neurological exam: PRESENT: other - Rather lethargic. However she is arousable to loud commands. Skin exam: PRESENT: erythema, mottled, rash. ABSENT: dry Results Laboratory Results: 09/12/16 08:53 09/14/16 05:44 09/14/16 09/14/16 05:44 12:50 Carbonic Acid 2.71 H HCO3/H2CO3 Ratio 11:1 ABG pH 7.15 L* ABG pCO2 89.9 H* ABG pO2 73.2 L ABG HCO3 30.7 H ABG O2 Saturation 89.0 L ABG Base Excess 0.1 FiO2 3L Sodium 139.8 Potassium 4.8 Chloride 99 Carbon Dioxide 31 H Anion Gap 10 BUN 68 H Creatinine 3.75 H Est GFR ( Amer) 14 L Est GFR (Non-Af Amer) 12 L Glucose 156 H Calcium 8.8 Impressions: Chest X-Ray 09/14/16 00:00 IMPRESSION: Fluid overload or congestive failure Assessment & Plan - Diagnosis (1) Acute on chronic renal failure Plan: She is not making a whole lot of urine in spite of increasing her Lasix. We will see how she responds over the next 24 hours and doing poorly, probably increase her diuretics even further started on a Lasix infusion. She has no indications for renal replacements currently. (2) Diabetes mellitus type 2 in obese Is this a current diagnosis for this admission?: Yes (4) Anemia Qualifiers: Anemia type: unspecified type Qualified Code(s): D64.9 - Anemia, unspecified Is this a current diagnosis for this admission?: Yes (5) Congestive heart failure Qualifiers: Congestive heart failure type: unspecified congestive heart failure type Congestive heart failure chronicity: chronic Qualified Code(s): I50.9 - Heart failure, unspecified Is this a current diagnosis for this admission?: YesPlan: See how she responds to the diuretic regimen. I would recommend that she has echocardiogram done if one has not been done in the past. Even though I say that I think given her extreme obesity is going to be a very poor study but not much of information that can be gained. (6) Obesity Qualifiers: Obesity severity: unspecified obesity severity Is this a current diagnosis for this admission?: Yes (7) Escherichia coli urinary tract infection Plan: On antibiotics
[2016-09-14] MEDS ORDERED: IMIPENEM/CILASTATIN SODIUM INJ 500 MG VIAL IV SCH (17:15)
[2016-09-14 18:19] LABS: ARTERIAL BLOOD O2 SATURATION 90.4 % (94-98)
[2016-09-14] MEDS ORDERED: DEXTROSE 5%-WATER 250 ML with NOREPINEPHRINE BITARTRATE 4 MG IV PRN ×2 (18:26)
[2016-09-14] MEDS ORDERED: PHARMACY COMMUNICATION ORDER MC NR (18:30)
[2016-09-14] MEDS ORDERED: PROPOFOL 100 ML IV ONE (18:40)
[2016-09-14] MEDS ORDERED: PROPOFOL INJ 200 MG/20 ML VIAL IV ONE (18:57)
[2016-09-14] MEDS ORDERED: IMIPENEM/CILASTATIN SODIUM 250 MG in NORMAL SALINE 100 ML IV ONE (19:00)
[2016-09-14] MEDS ORDERED: ACETAMINOPHEN 325 MG TABLET NG PRN (20:03)
[2016-09-14] MEDS ORDERED: DEXTROSE 40% GEL 15 GM TUBE NG PRN (20:04)
--- NOTE | 2016-09-14 22:18 | OPERATIVE REPORT E ---
Operative Report NAME: ANGELIKA SHAFFER : 1940 AGE: 76Y DATE OF SURGERY: 09/14/2016 ROOM: 602 PREOPERATIVE DIAGNOSIS: A 76-year-old female patient, consultation from ICU for insertion of central venous catheter for IV access and also monitoring. POSTOPERATIVE DIAGNOSIS: A 76-year-old female patient, consultation from ICU for insertion of central venous catheter for IV access and also monitoring. OPERATION: Insertion of central venous catheter through the right subclavian vein. SURGEON: FREDI LONG M.D. ANESTHESIA: The procedure was done at the bedside in ICU with local anesthesia after obtaining informed consent from patient's family. PROCEDURE DESCRIPTION: The patient was placed in the Trendelenburg position. The neck and anterior chest wall cleaned with povidone iodine and then after 1% lidocaine local anesthesia, the right subclavian vein was accessed by using the Seldinger technique. Through the needle a guidewire was passed into the superior vena cava. The tract was dilated over the guidewire and then over the guidewire the triple lumen catheter inserted into the superior vena cava with excellent venous flow. All three port lumens were flushed with heparinized solution, and then the catheter was secured in place. Dressings were applied. Patient was stable throughout the procedure and tolerated the procedure well. DICTATING PHYSICIAN: FREDI LONG M.D. [id number] PHY#: [id number] ID: [id number] JOB#: [id number] ACCT: [id number] cc:FREDI LONG M.D. >
[2016-09-14 23:11] LABS: ARTERIAL BLOOD BASE EXCESS 5.6 mmol/L; ARTERIAL BLOOD O2 SATURATION 97.3 % (94-98)
[2016-09-14] MEDS: PROPOFOL 100 ML IV PRN (23:52)
[2016-09-15] MEDS ORDERED: IMIPENEM/CILASTATIN SODIUM INJ 500 MG VIAL IV ONE
[2016-09-15] MEDS: DOPAMINE HCL/DEXTROSE 5%-WATER 250 ML IV PRN (00:03)
[2016-09-15] MEDS: FUROSEMIDE INJ/PF 40 MG/4 ML SDV IV SCH ×4 (00:07→21:30)
[2016-09-15] MEDS: HEPARIN SOD (PORCINE) 5,000 UNIT/ML 1 ML SYRINGE SUBCUT SCH ×3 (00:07→21:30)
[2016-09-15] MEDS: PROPOFOL 100 ML IV PRN ×8 (00:08→21:32)
[2016-09-15] MEDS: ISOSORB DINIT/HYDRALAZINE HCL 20-37.5 MG TABLET NG SCH ×4 (00:08→21:31)
[2016-09-15] MEDS ORDERED: NORMAL SALINE INJ/PF 0.9% 10 ML SDV IV PRN (01:26)
[2016-09-15] MEDS ORDERED: IMIPENEM/CILASTATIN SODIUM 250 MG in NORMAL SALINE 100 ML IV SCH ×2 (02:00→08:00)
[2016-09-15] MEDS: NORMAL SALINE 1000 ML 1,000 ML IV PRN (06:29)
[2016-09-15 06:49] LABS: HEMATOCRIT 28.2 % (36.0-47.0); HEMOGLOBIN 9.3 g/dL (12.0-15.5); HGB HCT DIFFERENCE -0.3; MEAN CORPUSCULAR HEMOGLOBIN 31.3 pg (27.0-33.4); MEAN CORPUSCULAR VOLUME 95 fl (80-97); RED BLOOD COUNT 2.96 10^6/uL (3.72-5.28); RED CELL DISTRIBUTION WIDTH 13.5 % (11.5-14.0); WHITE BLOOD COUNT 5.1 10^3/uL (4.0-10.5)
[2016-09-15 06:53] LABS: ARTERIAL BLOOD O2 SATURATION 90.8 % (94-98)
[2016-09-15 07:07] LABS: ANION GAP 8 (5-19); BLOOD UREA NITROGEN 70 mg/dL (7-20); CALCIUM 8.7 mg/dL (8.4-10.2); CARBON DIOXIDE 33 mmol/L (22-30); CHLORIDE 99 mmol/L (98-107); CREATININE RESULT 3.68 mg/dL (0.52-1.25); GLUCOSE 83 mg/dL (75-110); POTASSIUM 4.2 mmol/L (3.6-5.0); SODIUM 140.4 mmol/L (137-145)
[2016-09-15] MEDS ORDERED: LORAZEPAM 24 MG/240 ML BAG IV ONE (08:26)
--- NOTE | 2016-09-15 09:13 | PDOC PROGRESS REPORT ---
Subjective Progress Note for:: 09/15/16 Subjective:: Patient got worse yesterday afternoon. Mental status declined. ABG showed hypercarbia. BiPAP placed and tried and still on repeat blood gas, PCO2 continues to increase. The patient was transferred to the intensive care unit and was intubated. No temperature spikes however was noted. She was hypothermic yesterday as well. Physical Exam Vital Signs: Temp Pulse Resp BP Pulse Ox 98.8 F 68 11 L 93/47 L 96 09/15/16 01:44 09/14/16 19:00 09/14/16 23:58 09/15/16 06:42 09/15/16 06:42 Intake & Output 09/14/16 09/15/16 09/16/16 06:59 06:59 06:59 Intake Total 1576 1652 Output Total 550 1020 Balance 1026 632 Weight 139.4 kg General appearance: PRESENT: no acute distress, morbidly obese, other - Intubated Head exam: PRESENT: normocephalic Eye exam: PRESENT: EOMI Mouth exam: PRESENT: moist, neck supple Neck exam: ABSENT: JVD Respiratory exam: PRESENT: crackles - Bilateral, rhonchi - Bilateral, unlabored Cardiovascular exam: PRESENT: RRR. ABSENT: gallop GI/Abdominal exam: PRESENT: hypoactive bowel sounds, soft. ABSENT: tenderness Rectal exam: PRESENT: other - Anasarca Extremities exam: PRESENT: +2 edema Neurological exam: PRESENT: awake Psychiatric exam: ABSENT: agitated Focused psych exam: ABSENT: restlessness Skin exam: PRESENT: dry, warm. ABSENT: cyanosis Results Laboratory Results: 09/15/16 06:20 09/15/16 06:20 09/14/16 09/14/16 09/14/16 12:50 18:00 22:45 WBC RBC Hgb Hct MCV MCH MCHC RDW Plt Count Carbonic Acid 2.71 H 2.87 H 1.85 H HCO3/H2CO3 Ratio 11:1 12:1 17:1 ABG pH 7.15 L* 7.18 L* 7.34 L ABG pCO2 89.9 H* 95.2 H* 61.3 H ABG pO2 73.2 L 75.6 L 103.0 H ABG HCO3 30.7 H 34.6 H 32.6 H ABG O2 Saturation 89.0 L 90.4 L 97.3 ABG Base Excess 0.1 4.0 5.6 FiO2 3L 35% 50% Sodium Potassium Chloride Carbon Dioxide Anion Gap BUN Creatinine Est GFR ( Amer) Est GFR (Non-Af Amer) Glucose Calcium 09/15/16 09/15/16 09/15/16 06:20 06:20 06:20 WBC 5.1 RBC 2.96 L Hgb 9.3 L Hct 28.2 L MCV 95 MCH 31.3 MCHC 33.0 RDW 13.5 Plt Count 113 L Carbonic Acid 1.73 H HCO3/H2CO3 Ratio 18:1 ABG pH 7.36 ABG pCO2 57.4 H ABG pO2 62.9 L ABG HCO3 31.7 H ABG O2 Saturation 90.8 L ABG Base Excess 5.0 FiO2 50% Sodium 140.4 Potassium 4.2 Chloride 99 Carbon Dioxide 33 H Anion Gap 8 BUN 70 H Creatinine 3.68 H Est GFR ( Amer) 14 L Est GFR (Non-Af Amer) 12 L Glucose 83 Calcium 8.7 Impressions: Chest X-Ray 09/15/16 06:00 IMPRESSION: 1. Support tubes and lines as above. 2. Stable left lung base opacity likely representing atelectasis/ infiltrate with possible associated effusion. There is increased airspace opacities noted throughout the right lung which could represent developing infiltrate, atelectasis, or edema. There is pulmonary vascular congestion and interstitial edema noted throughout the lungs, worse than on the prior study. Assessment & Plan - Diagnosis (1) Acute respiratory failure with hypoxia and hypercarbia Is this a current diagnosis for this admission?: Yes (2) Pneumonia Qualifiers: Pneumonia type: due to unspecified organism Laterality: unspecified laterality Lung location: unspecified part of lung Qualified Code(s) : J18.9 - Pneumonia, unspecified organism Is this a current diagnosis for this admission?: Yes (3) Acute encephalopathy Is this a current diagnosis for this admission?: Yes (4) Hyperkalemia Is this a current diagnosis for this admission?: Yes (5) UTI (urinary tract infection) Qualifiers: Urinary tract infection type: site unspecified Is this a current diagnosis for this admission?: Yes (6) Anemia Qualifiers: Anemia type: unspecified type Qualified Code(s): D64.9 - Anemia, unspecified Is this a current diagnosis for this admission?: Yes (7) Acute worsening of stage 4 chronic kidney disease Is this a current diagnosis for this admission?: Yes (8) Congestive heart failure Qualifiers: Congestive heart failure type: unspecified congestive heart failure type Congestive heart failure chronicity: chronic Qualified Code(s): I50.9 - Heart failure, unspecified Is this a current diagnosis for this admission?: Yes (9) Hypertension Qualifiers: Hypertension type: essential hypertension Qualified Code(s): I10 - Essential (primary) hypertension Is this a current diagnosis for this admission?: Yes (10) Obesity Qualifiers: Obesity severity: unspecified obesity severity Is this a current diagnosis for this admission?: Yes (11) Diabetes mellitus type 2 in obese Is this a current diagnosis for this admission?: Yes (12) History of stroke Is this a current diagnosis for this admission?: Yes - Time Time Spent with patient: 25-34 minutes - Plan Summary Plan Summary: Antibiotic changed to Primaxin. Cultures sent. Monitor electrolytes. Creatinine seems to be improving, however has a positive balance still and chest x-rays worse. We will increase Zaroxolyn on top of the Lasix. Monitor input and output as well as creatinine. We will also put the patient on Versed for sedation. Continue current supportive care for now.
[2016-09-15 09:17] LABS: PROTHROMBIN TIME 13.1 SEC (11.4-15.4)
[2016-09-15 09:18] LABS: PARTIAL THROMBOPLASTIN TIME 30.6 SEC (23.5-35.8)
[2016-09-15] MEDS ORDERED: METOLAZONE 5 MG TABLET NG SCH (10:00)
[2016-09-15] MEDS: FERROUS SULFATE 325 MG TABLET PO SCH (10:30)
[2016-09-15] MEDS: ASCORBIC ACID 500 MG TABLET NG SCH (10:34)
[2016-09-15] MEDS: AMIODARONE HCL 200 MG TABLET NG SCH (10:35)
[2016-09-15] MEDS ORDERED: FERROUS SULFATE LIQUID 300 MG/5 ML UDC NG ONE (11:00)
[2016-09-15] MEDS ORDERED: METOLAZONE 5 MG TABLET NG ONE (11:00)
[2016-09-15] MEDS: ASPIRIN 81 MG TABLET, CHEWABLE NG SCH (11:10)
[2016-09-15] MEDS: IMIPENEM/CILASTATIN SODIUM 250 MG in NORMAL SALINE 100 ML IV SCH ×2 (11:10→18:40)
[2016-09-15] MEDS: ZINC SULFATE 220 MG CAPSULE NG SCH (11:11)
[2016-09-15] MEDS: COLLAGENASE CLOSTRIDIUM HIST. OINT 30 GM TP SCH (11:11)
[2016-09-15] MEDS: LORAZEPAM 24 MG/ D5W 240 ML IV PRN ×2 (14:23→21:33)
[2016-09-15] MEDS ORDERED: FERROUS SULFATE LIQUID 300 MG/5 ML UDC PO SCH (18:00)
--- NOTE | 2016-09-15 18:27 | XCELERA REPORT ---
[address] [address] Transthoracic Echocardiogram Report Name: ANGELIKA SHAFFER Age: 76 yrs Gender: Female : 1940 Patient Status: Inpatient Patient Location: ICU\S\602\S\A Study Date: 09/15/2016 04:28 PM Height: 66 in Weight: 307 lb BSA: 2.4 m2 Procedure: A complete two-dimensional transthoracic echocardiogram was performed (2D, M-mode, spectral and color flow Doppler). The study was technically difficult with many images being suboptimal in quality. Reason For Study: chf Ordering Physician: ZARINA NICHOLE Performed By: Angeli Gray Interpretation Summary LV EF is 35% Left ventricular systolic function is moderately reduced. There is mild concentric left ventricular hypertrophy. The left ventricle is grossly normal size. Doppler measurements suggest pseudonormalized left ventricular relaxation, which is associated with grade II/IV or mild to moderate diastolic dysfunction There is apical wall dyskinesis There is distal anterior wall akinesis There is distal inferior wall akinesis There is distal lateral wall akinesis The right ventricular systolic function is normal. The right atrium is normal in size The left atrium is mildly dilated. There is a mild amount of mitral regurgitation There is no mitral valve stenosis. No aortic regurgitation is present. There is no aortic valve stenosis There is a trace or physiologic amount of tricuspid regurgitation Tricuspid regurgitation jet envelope not well defined to measure RV systolic pressure accurately. The aortic root is not well visualized. The inferior vena cava was not well visualized There is no pericardial effusion. MMode/2D Measurements \T\ Calculations RVDd: 4.1 cm LVIDd: 5.6 cm FS: 27.7 % Ao root diam: IVSd: 1.2 cm LVIDs: 4.0 cm EDV(Teich): 3.2 cm LVPWd: 1.2 cm 152.7 ml Ao root area: ESV(Teich): 71.6 ml 8.1 cm2 EF(Teich): 53.1 % LA dimension: 4.4 cm LVOT diam: LVLd ap4: 11.1 cm SV(MOD-sp4): 2.4 cm EDV(MOD-sp4): 87.0 ml LVOT area: 218.0 ml LVLs ap4: 10.8 cm 4.5 cm2 ESV(MOD-sp4): 131.0 ml EF(MOD-sp4): 39.9 % Doppler Measurements \T\ Calculations MV E max dequan: MV P1/2t max dequan: Ao V2 max: LV V1 max P.5 cm/sec 85.8 cm/sec 212.0 cm/sec 7.1 mmHg MV A max dequan: MV P1/2t: 41.7 msec Ao max PG: LV V1 max: 160.4 cm/sec MVA(P1/2t): 5.3 cm2 18.0 mmHg 133.3 cm/sec MV E/A: 0.53 MV dec slope: KIMBERLEY(V,D): 2.9 cm2 602.1 cm/sec2 MV dec time: 0.14 sec PA V2 max: PI end-d dequan: TR max dequan: 115.0 cm/sec 165.9 cm/sec 200.7 cm/sec PA max PG: TR max P.3 mmHg 16.1 mmHg Left Ventricle The left ventricle is grossly normal size. There is mild concentric left ventricular hypertrophy. Left ventricular systolic function is moderately reduced. LV EF is 35%. Doppler measurements suggest pseudonormalized left ventricular relaxation, which is associated with grade II/IV or mild to moderate diastolic dysfunction. There is apical wall dyskinesis. There is distal anterior wall akinesis. There is distal inferior wall akinesis. There is distal lateral wall akinesis. Right Ventricle The right ventricle is grossly normal size. There is normal right ventricular wall thickness. The right ventricular systolic function is normal. Atria The right atrium is normal in size. The left atrium is mildly dilated. Interarterial septum not well visualized and not well dopplered. Cannot comment on ASD/PFO presence. Mitral Valve There is mild mitral annular calcification. There is no mitral valve stenosis. There is a mild amount of mitral regurgitation. Aortic Valve The aortic valve is mildly calcified. There is no aortic valve stenosis. No aortic regurgitation is present. Tricuspid Valve The tricuspid valve is not well visualized, but is grossly normal. There is no tricuspid stenosis. There is a trace or physiologic amount of tricuspid regurgitation. Tricuspid regurgitation jet envelope not well defined to measure RV systolic pressure accurately. Pulmonic Valve The pulmonic valve is not well visualized. Great Vessels The aortic root is not well visualized. The inferior vena cava was not well visualized. Effusions There is no pericardial effusion. : ZARINA NICHOLE Shyamal
[2016-09-15] MEDS: FERROUS SULFATE LIQUID 300 MG/5 ML UDC NG SCH (18:39)
--- NOTE | 2016-09-15 18:39 | PDOC CONSULTATION ---
Consultation Consult Date: 09/15/16 Attending physician:: ZARINA NICHOLE Consult reason:: resp fail/pna History of Present Illness Admission Date/PCP: 09/12/16 08:08 History of Present Illness: Patient inyubared and sedatrd info from chartMrs. Danielle Cruz is a 76 years old lady with a past medical history of significant morbid obesity, diverticulitis type II, hypertension, heart failure was recently admitted if couple of weeks ago with acute delirium and had been discharged to rehabilitation with a creatinine of 2.2 comes in with history of altered mental status again. She is unable to give any proper history during admission. hx of CRF.no est hx of prior lung dx. Past Medical History Cardiac Medical History: Reports: Atrial Fibrillation, Congestive Heart Failure , Hypertension Endocrine Medical History: Reports: Diabetes Mellitus Type 2, Obesity GI Medical History: Reports: Gastroesophageal Reflux Disease Musculoskeltal Medical History: Reports: Arthritis Psychiatric Medical History: Denies: Depression Hematology: Reports: Anemia Past Surgical History Past Surgical History: Reports: Orthopedic Surgery, Pacemaker - 12/06/2015 Social History Information Source: [facility] Records Lives with: [facility] Smoking Status: Never Smoker Frequency of Alcohol Use: None Hx Recreational Drug Use: No Drugs: None - Advance Directive Resuscitation Status: Full Code Family History Family History: Other - Unobtainable Parental Family History Reviewed: No Children Family History Reviewed: No Sibling(s) Family History Reviewed.: No Medication/Allergy Home Medications: Amiodarone HCl 1 tab PO DAILY 09/04/16 Ascorbic Acid [Vitamin C 500 mg Tablet] 500 mg PO DAILY 09/04/16 Aspirin [Aspirin 81 mg Chewable Tablet] 81 mg PO DAILY 09/04/16 Atorvastatin Calcium [Lipitor 10 mg Tablet] 10 mg PO QHS 09/04/16 Collagenase Clostridium Hist. [Santyl Ointment 30 gm] 1 applic TP DAILY Cyanocobalamin (Vitamin B-12) [B-12] 1,000 mcg PO DAILY 09/04/16 Diclofenac Sodium [Voltaren] 2 gm TP DAILY 09/04/16 Ergocalciferol (Vitamin D2) [Vitamin D2] 50,000 unit PO FR@1000 09/04/16 Ferrous Sulfate [Iron] 325 mg PO BID 09/04/16 Furosemide [Lasix] 40 mg PO QPM 09/04/16 Furosemide [Lasix] 80 mg PO QAM 09/04/16 Gabapentin [Neurontin 100 mg Capsule] 100 mg PO Q8 09/04/16 Glucagon,Human Recombinant [Glucagon Emergency Kit] 1 mg IJ PRN PRN 09/04/16 Insulin Lispro [Humalog Insulin (Lispro) 100 unit/mL] 0 unit SUBCUT .SLD SCALE 09/04/16 Isosorb Dinit/Hydralazine HCl [Bidil 20-37.5 mg Tablet] 0.5 tab PO Q8 09/04/16 Ketoconazole [Nizoral] 1 applic TP BID 09/04/16 Metoprolol Tartrate [Lopressor 25 mg Tablet] 25 mg PO Q12 09/04/16 Mirtazapine [Remeron 15 mg Tablet] 15 mg PO QHS 09/04/16 Multivitamin [Multivitamins] 1 each PO DAILY 09/04/16 Omeprazole 20 mg PO DAILY 09/04/16 Zinc Sulfate [Zinc-220 Capsule] 220 mg PO DAILY 09/04/16 Guaifenesin [Robitussin Syrup 200 mg/10 ml Ud Cup] 200 mg PO Q4HP PRN 09/05/16 Oxycodone HCl [Oxycodone HCl 10 MG Tablet] 10 mg PO TIDP PRN #30 tablet Allergies/Adverse Reactions: cefadroxil [From Duricef] Allergy (Verified 09/04/16 22:56) celecoxib [From Celebrex] Allergy (Verified 09/04/16 22:56) Sulfa (Sulfonamide Antibiotics) Allergy (Verified 09/04/16 22:56) Review of Systems ROS unobtainable: Due to endotracheal tube Physical Exam Vital Signs: Temp Pulse Resp BP Pulse Ox 99.7 F 79 12 109/49 L 95 09/15/16 08:00 09/15/16 10:00 09/15/16 10:00 09/15/16 10:00 09/15/16 10:00 Intake & Output 09/14/16 09/15/16 09/16/16 06:59 06:59 06:59 Intake Total 1576 1652 Output Total 550 1020 275 Balance 1026 632 -275 Weight 139.4 kg General appearance: PRESENT: disheveled, morbidly obese Head exam: PRESENT: atraumatic, normocephalic Eye exam: PRESENT: conjunctiva pale Mouth exam: PRESENT: neck supple, tongue midline, other - ET tube in pkace Respiratory exam: PRESENT: crackles, decreased breath sounds, prolonged expiratory phas, rhonchi, unlabored Cardiovascular exam: PRESENT: RRR, +S1, +S2 Pulses: PRESENT: normal radial pulses Rectal exam: PRESENT: deferred Gentrourinary exam: PRESENT: indwelling catheter Musculoskeletal exam: PRESENT: normal inspection Skin exam: PRESENT: dry, intact Results Laboratory Results: 09/15/16 06:20 09/15/16 06:20 09/14/16 09/14/16 09/14/16 12:50 18:00 22:45 WBC RBC Hgb Hct MCV MCH MCHC RDW Plt Count Carbonic Acid 2.71 H 2.87 H 1.85 H HCO3/H2CO3 Ratio 11:1 12:1 17:1 ABG pH 7.15 L* 7.18 L* 7.34 L ABG pCO2 89.9 H* 95.2 H* 61.3 H ABG pO2 73.2 L 75.6 L 103.0 H ABG HCO3 30.7 H 34.6 H 32.6 H ABG O2 Saturation 89.0 L 90.4 L 97.3 ABG Base Excess 0.1 4.0 5.6 FiO2 3L 35% 50% Sodium Potassium Chloride Carbon Dioxide Anion Gap BUN Creatinine Est GFR ( Amer) Est GFR (Non-Af Amer) Glucose Calcium 09/15/16 09/15/16 09/15/16 06:20 06:20 06:20 WBC 5.1 RBC 2.96 L Hgb 9.3 L Hct 28.2 L MCV 95 MCH 31.3 MCHC 33.0 RDW 13.5 Plt Count 113 L Carbonic Acid 1.73 H HCO3/H2CO3 Ratio 18:1 ABG pH 7.36 ABG pCO2 57.4 H ABG pO2 62.9 L ABG HCO3 31.7 H ABG O2 Saturation 90.8 L ABG Base Excess 5.0 FiO2 50% Sodium 140.4 Potassium 4.2 Chloride 99 Carbon Dioxide 33 H Anion Gap 8 BUN 70 H Creatinine 3.68 H Est GFR ( Amer) 14 L Est GFR (Non-Af Amer) 12 L Glucose 83 Calcium 8.7 Impressions: Chest X-Ray 09/15/16 06:00 IMPRESSION: 1. Support tubes and lines as above. 2. Stable left lung base opacity likely representing atelectasis/ infiltrate with possible associated effusion. There is increased airspace opacities noted throughout the right lung which could represent developing infiltrate, atelectasis, or edema. There is pulmonary vascular congestion and interstitial edema noted throughout the lungs, worse than on the prior study. Assessment & Plan - Diagnosis (1) Acute on chronic renal failure Is this a current diagnosis for this admission?: YesPlan: per nephrology (2) Acute respiratory failure with hypoxia and hypercarbia Is this a current diagnosis for this admission?: YesPlan: pna+ crf (3) Escherichia coli urinary tract infection Is this a current diagnosis for this admission?: YesPlan: on abx (4) Pneumonia Qualifiers: Pneumonia type: aspiration pneumonia Laterality: unspecified laterality Lung location: unspecified part of lung Is this a current diagnosis for this admission?: YesPlan: suspect aspiration culture pending
[2016-09-15] MEDS: METOLAZONE 5 MG TABLET NG SCH (18:40)
[2016-09-16] MEDS: METOLAZONE 5 MG TABLET NG SCH ×3 (02:40→17:13)
[2016-09-16] MEDS: ISOSORB DINIT/HYDRALAZINE HCL 20-37.5 MG TABLET NG SCH ×3 (05:04→21:04)
[2016-09-16] MEDS: FUROSEMIDE INJ/PF 40 MG/4 ML SDV IV SCH ×3 (05:04→21:03)
[2016-09-16] MEDS: NORMAL SALINE 1000 ML 1,000 ML IV PRN (05:05)
[2016-09-16] MEDS: DOPAMINE HCL/DEXTROSE 5%-WATER 250 ML IV PRN (05:05)
[2016-09-16] MEDS: PROPOFOL 100 ML IV PRN ×4 (05:06→21:04)
[2016-09-16] MEDS: LORAZEPAM 24 MG/ D5W 240 ML IV PRN ×3 (05:06→21:05)
[2016-09-16 05:35] LABS: HEMATOCRIT 29.1 % (36.0-47.0); HEMOGLOBIN 9.7 g/dL (12.0-15.5); MEAN CORPUSCULAR HEMOGLOBIN 30.8 pg (27.0-33.4); MEAN CORPUSCULAR HGB CONC 33.4 g/dL (32.0-36.0); MEAN CORPUSCULAR VOLUME 92 fl (80-97); RED BLOOD COUNT 3.15 10^6/uL (3.72-5.28); RED CELL DISTRIBUTION WIDTH 13.3 % (11.5-14.0); WHITE BLOOD COUNT 3.7 10^3/uL (4.0-10.5)
[2016-09-16 05:39] LABS: ARTERIAL BLOOD BASE EXCESS 5.1 mmol/L; ARTERIAL BLOOD O2 SATURATION 94.4 % (94-98)
[2016-09-16 05:53] LABS: ANION GAP 10 (5-19); BLOOD UREA NITROGEN 74 mg/dL (7-20); CALCIUM 8.6 mg/dL (8.4-10.2); CARBON DIOXIDE 29 mmol/L (22-30); CHLORIDE 97 mmol/L (98-107); CREATININE RESULT 3.71 mg/dL (0.52-1.25); GLUCOSE 93 mg/dL (75-110); MAGNESIUM 1.9 mg/dL (1.6-2.3); PHOSPHORUS 4.1 mg/dL (2.5-4.5); SODIUM 136.3 mmol/L (137-145)
[2016-09-16] MEDS: IMIPENEM/CILASTATIN SODIUM 250 MG in NORMAL SALINE 100 ML IV SCH ×3 (05:53→17:12)
[2016-09-16 06:34] LABS: BAND NEUTROPHILS % (MANUAL) 5 % (3-5); BASOPHILS % (MANUAL) 1 % (0-2); EOSINOPHILS % (MANUAL) 4 % (0-6); LYMPHOCYTES % (MANUAL) 21 % (13-45); TOTAL CELLS COUNTED 100
[2016-09-16 06:36] LABS: ANISOCYTOSIS SLIGHT; HYPOCHROMASIA SLIGHT; POLYCHROMASIA SLIGHT
--- NOTE | 2016-09-16 08:44 | PDOC PROGRESS REPORT ---
Subjective Progress Note for:: 09/16/16 Subjective:: Patient's urine output improved. Patient not on any pressors. She is on Ativan drip. There is no noted respiratory distress, temperature spikes. Chest x-ray likewise is improving. Oxygen requirement likewise improved. Physical Exam Vital Signs: Temp Pulse Resp BP Pulse Ox 98.4 F 75 16 116/65 93 09/16/16 04:00 09/15/16 22:00 09/15/16 18:00 09/16/16 05:28 09/16/16 06:00 Intake & Output 09/15/16 09/16/16 09/17/16 06:59 06:59 06:59 Intake Total 1652 2897 Output Total 1020 1925 Balance 632 972 General appearance: PRESENT: no acute distress, morbidly obese, other - Intubated and sedated Head exam: PRESENT: normocephalic Eye exam: PRESENT: conjunctiva pale Mouth exam: PRESENT: moist, neck supple Neck exam: ABSENT: JVD Respiratory exam: PRESENT: clear to auscultation julia. ABSENT: rhonchi, wheezes Cardiovascular exam: PRESENT: RRR. ABSENT: gallop GI/Abdominal exam: PRESENT: distended - Obese, hypoactive bowel sounds, soft Extremities exam: PRESENT: +2 edema, other - Anasarca Neurological exam: PRESENT: altered - Sedated Skin exam: PRESENT: dry, warm. ABSENT: cyanosis Results Laboratory Results: 09/16/16 05:20 09/16/16 05:20 09/16/16 09/16/16 09/16/16 05:20 05:20 05:20 WBC 3.7 L RBC 3.15 L Hgb 9.7 L Hct 29.1 L MCV 92 MCH 30.8 MCHC 33.4 RDW 13.3 Plt Count 129 L Seg Neutrophils % Not Reportable Lymphocytes % Not Reportable Monocytes % Not Reportable Eosinophils % Not Reportable Basophils % Not Reportable Absolute Neutrophils Not Reportable Absolute Lymphocytes Not Reportable Absolute Monocytes Not Reportable Absolute Eosinophils Not Reportable Absolute Basophils Not Reportable Carbonic Acid 1.18 HCO3/H2CO3 Ratio 24:1 ABG pH 7.49 H ABG pCO2 39.1 ABG pO2 66.1 L ABG HCO3 28.9 H ABG O2 Saturation 94.4 ABG Base Excess 5.1 FiO2 40% Sodium 136.3 L Potassium 4.0 Chloride 97 L Carbon Dioxide 29 Anion Gap 10 BUN 74 H Creatinine 3.71 H Est GFR ( Amer) 14 L Est GFR (Non-Af Amer) 12 L Glucose 93 Calcium 8.6 Phosphorus 4.1 Magnesium 1.9 Impressions: Chest X-Ray 09/16/16 06:00 IMPRESSION: 1. Support tubes and lines as above 2. Stable opacity in the left lung base. Improved pulmonary vascular congestion interstitial prominence comparison prior study. Improved patchy densities in the right lung. Assessment & Plan - Diagnosis (1) Acute respiratory failure with hypoxia and hypercarbia Is this a current diagnosis for this admission?: Yes (2) Pneumonia Qualifiers: Pneumonia type: aspiration pneumonia Laterality: unspecified laterality Lung location: unspecified part of lung Is this a current diagnosis for this admission?: Yes (3) Acute encephalopathy Is this a current diagnosis for this admission?: Yes (4) Hyperkalemia Is this a current diagnosis for this admission?: Yes (5) UTI (urinary tract infection) Qualifiers: Urinary tract infection type: site unspecified Is this a current diagnosis for this admission?: Yes (6) Anemia Qualifiers: Anemia type: unspecified type Qualified Code(s): D64.9 - Anemia, unspecified Is this a current diagnosis for this admission?: Yes (7) Acute worsening of stage 4 chronic kidney disease Is this a current diagnosis for this admission?: Yes (8) Congestive heart failure Qualifiers: Congestive heart failure type: unspecified congestive heart failure type Congestive heart failure chronicity: chronic Qualified Code(s): I50.9 - Heart failure, unspecified Is this a current diagnosis for this admission?: Yes (9) Hypertension Qualifiers: Hypertension type: essential hypertension Qualified Code(s): I10 - Essential (primary) hypertension Is this a current diagnosis for this admission?: Yes (10) Obesity Qualifiers: Obesity severity: unspecified obesity severity Is this a current diagnosis for this admission?: Yes (11) Diabetes mellitus type 2 in obese Is this a current diagnosis for this admission?: Yes (12) History of stroke Is this a current diagnosis for this admission?: Yes - Time Time Spent with patient: 25-34 minutes - Plan Summary Plan Summary: We will decrease intravenous fluids. Continue diuretics. Begin tube feedings. Monitor electrolytes. Continue other measures and supportive care. Consult pulmonary for ventilator management. Continue current antibiotics for now and follow cultures.
[2016-09-16] MEDS ORDERED: FERROUS SULFATE LIQUID 300 MG/5 ML UDC NG SCH (10:00)
[2016-09-16] MEDS: FERROUS SULFATE LIQUID 300 MG/5 ML UDC NG SCH ×2 (10:45→17:13)
[2016-09-16] MEDS: AMIODARONE HCL 200 MG TABLET NG SCH (10:46)
[2016-09-16] MEDS: ASCORBIC ACID 500 MG TABLET NG SCH (10:46)
[2016-09-16] MEDS: ASPIRIN 81 MG TABLET, CHEWABLE NG SCH (10:46)
[2016-09-16] MEDS: HEPARIN SOD (PORCINE) 5,000 UNIT/ML 1 ML SYRINGE SUBCUT SCH ×2 (10:46→21:03)
[2016-09-16] MEDS: ZINC SULFATE 220 MG CAPSULE NG SCH (10:46)
[2016-09-16] MEDS: COLLAGENASE CLOSTRIDIUM HIST. OINT 30 GM TP SCH (10:48)
[2016-09-17] MEDS: PROPOFOL 100 ML IV PRN ×3 (01:42→21:26)
[2016-09-17] MEDS: IMIPENEM/CILASTATIN SODIUM 250 MG in NORMAL SALINE 100 ML IV SCH ×3 (01:43→18:43)
[2016-09-17] MEDS: METOLAZONE 5 MG TABLET NG SCH ×3 (01:43→18:43)
[2016-09-17] MEDS: DOPAMINE HCL/DEXTROSE 5%-WATER 250 ML IV PRN (06:07)
[2016-09-17 06:08] LABS: ARTERIAL BLOOD BASE EXCESS 2.3 mmol/L; ARTERIAL BLOOD O2 SATURATION 92.8 % (94-98)
[2016-09-17] MEDS: NORMAL SALINE 1000 ML 1,000 ML IV PRN (06:08)
[2016-09-17] MEDS: LORAZEPAM 24 MG/ D5W 240 ML IV PRN ×2 (06:12→15:04)
[2016-09-17] MEDS: ISOSORB DINIT/HYDRALAZINE HCL 20-37.5 MG TABLET NG SCH ×3 (06:13→23:36)
[2016-09-17] MEDS: FUROSEMIDE INJ/PF 40 MG/4 ML SDV IV SCH ×3 (06:13→23:36)
[2016-09-17 06:27] LABS: HEMATOCRIT 29.7 % (36.0-47.0); HEMOGLOBIN 9.9 g/dL (12.0-15.5); MEAN CORPUSCULAR HEMOGLOBIN 30.8 pg (27.0-33.4); MEAN CORPUSCULAR HGB CONC 33.3 g/dL (32.0-36.0); MEAN CORPUSCULAR VOLUME 92 fl (80-97); RED BLOOD COUNT 3.21 10^6/uL (3.72-5.28); RED CELL DISTRIBUTION WIDTH 13.5 % (11.5-14.0)
[2016-09-17 06:41] LABS: ANION GAP 11 (5-19); BLOOD UREA NITROGEN 76 mg/dL (7-20); CALCIUM 8.6 mg/dL (8.4-10.2); CARBON DIOXIDE 28 mmol/L (22-30); CHLORIDE 96 mmol/L (98-107); CREATININE RESULT 3.83 mg/dL (0.52-1.25); GLUCOSE 119 mg/dL (75-110); POTASSIUM 3.7 mmol/L (3.6-5.0); SODIUM 134.7 mmol/L (137-145)
[2016-09-17] MEDS: MORPHINE SULFATE 10 MG/ML INJ IV PRN ×2 (07:39→12:51)
--- NOTE | 2016-09-17 08:47 | PDOC PROGRESS REPORT ---
Subjective Progress Note for:: 09/17/16 Subjective:: Patient's urine output negative balance today but only about 300 mL. Blood pressures in the low normal side. Urine culture growing Enterococcus faecalis and Escherichia coli. Sputum culture showing gram-positive cocci in pairs. Patient is on Primaxin. Remains on the ventilator. On renal dose dopamine, on Diprivan and Ativan for sedation Physical Exam Vital Signs: Temp Pulse Resp BP Pulse Ox 97.8 F 70 16 114/62 97 09/17/16 07:52 09/17/16 07:52 09/17/16 07:52 09/17/16 07:52 09/17/16 07:52 Intake & Output 09/16/16 09/17/16 09/18/16 06:59 06:59 06:59 Intake Total 2897 2211 Output Total 1925 2565 225 Balance 972 -354 -225 Weight 135.5 kg 131 kg General appearance: PRESENT: no acute distress, other - Age-related and sedated Head exam: PRESENT: normocephalic Eye exam: PRESENT: conjunctiva pale Mouth exam: PRESENT: moist, neck supple Neck exam: PRESENT: other - No JVD Respiratory exam: PRESENT: clear to auscultation julia, other - Negative wheezing or rhonchi Cardiovascular exam: PRESENT: RRR, other - No gallops GI/Abdominal exam: PRESENT: hypoactive bowel sounds, soft Extremities exam: PRESENT: +2 edema - Positive anasarca Neurological exam: PRESENT: other - Sedated Skin exam: PRESENT: dry, warm, other - No cyanosis Results Laboratory Results: 09/17/16 05:50 09/17/16 05:50 09/17/16 09/17/16 09/17/16 05:50 05:50 05:50 WBC 3.0 L RBC 3.21 L Hgb 9.9 L Hct 29.7 L MCV 92 MCH 30.8 MCHC 33.3 RDW 13.5 Plt Count 106 L Carbonic Acid 1.14 HCO3/H2CO3 Ratio 22:1 ABG pH 7.46 H ABG pCO2 38.0 ABG pO2 61.4 L ABG HCO3 26.2 H ABG O2 Saturation 92.8 L ABG Base Excess 2.3 FiO2 30% Sodium 134.7 L Potassium 3.7 Chloride 96 L Carbon Dioxide 28 Anion Gap 11 BUN 76 H Creatinine 3.83 H Est GFR ( Amer) 14 L Est GFR (Non-Af Amer) 11 L Glucose 119 H Calcium 8.6 Impressions: Chest X-Ray 09/17/16 06:00 IMPRESSION: Slight increase in right basilar airspace disease. No other significant changes. Assessment & Plan - Diagnosis (1) Acute respiratory failure with hypoxia and hypercarbia Is this a current diagnosis for this admission?: Yes (2) Pneumonia Qualifiers: Pneumonia type: aspiration pneumonia Laterality: unspecified laterality Lung location: unspecified part of lung Is this a current diagnosis for this admission?: Yes (3) Acute encephalopathy Is this a current diagnosis for this admission?: Yes (4) Hyperkalemia Is this a current diagnosis for this admission?: Yes (5) UTI (urinary tract infection) Qualifiers: Urinary tract infection type: site unspecified Is this a current diagnosis for this admission?: Yes (6) Anemia Qualifiers: Anemia type: unspecified type Qualified Code(s): D64.9 - Anemia, unspecified Is this a current diagnosis for this admission?: Yes (7) Acute worsening of stage 4 chronic kidney disease Is this a current diagnosis for this admission?: Yes (8) Congestive heart failure Qualifiers: Congestive heart failure type: unspecified congestive heart failure type Congestive heart failure chronicity: chronic Qualified Code(s): I50.9 - Heart failure, unspecified Is this a current diagnosis for this admission?: Yes (9) Hypertension Qualifiers: Hypertension type: essential hypertension Qualified Code(s): I10 - Essential (primary) hypertension Is this a current diagnosis for this admission?: Yes (10) Obesity Qualifiers: Obesity severity: unspecified obesity severity Is this a current diagnosis for this admission?: Yes (11) Diabetes mellitus type 2 in obese Is this a current diagnosis for this admission?: Yes (12) History of stroke Is this a current diagnosis for this admission?: Yes - Time Time Spent with patient: 25-34 minutes - Plan Summary Plan Summary: We will continue Primaxin. Follow sputum culture. We will try to hold and any nephrotoxic agents at this time. On literature, Primaxin has some activity for Enterococcus faecalis. We will follow sputum culture result. In the meantime, weaning will be tried today although chest x-ray revealed some mild congestion. We will try to increase Lasix and continue renal dose dopamine. Continue tube feedings for now. Monitor electrolytes. Creatinine trending up, we will continue to monitor.
[2016-09-17] MEDS: FERROUS SULFATE LIQUID 300 MG/5 ML UDC NG SCH ×2 (09:40→18:43)
[2016-09-17] MEDS: ASPIRIN 81 MG TABLET, CHEWABLE NG SCH (09:40)
[2016-09-17] MEDS: AMIODARONE HCL 200 MG TABLET NG SCH (09:41)
[2016-09-17] MEDS: ASCORBIC ACID 500 MG TABLET NG SCH (09:41)
[2016-09-17] MEDS: HEPARIN SOD (PORCINE) 5,000 UNIT/ML 1 ML SYRINGE SUBCUT SCH ×2 (09:41→23:37)
[2016-09-17] MEDS: ZINC SULFATE 220 MG CAPSULE NG SCH (09:46)
[2016-09-17] MEDS: COLLAGENASE CLOSTRIDIUM HIST. OINT 30 GM TP SCH (12:15)
--- NOTE | 2016-09-17 15:05 | PDOC PROGRESS REPORT ---
Subjective Progress Note for:: 09/16/16 Subjective:: D#3 intubated Physical Exam Vital Signs: Temp Pulse Resp BP Pulse Ox 97.8 F 70 16 114/62 97 09/17/16 07:52 09/17/16 07:52 09/17/16 07:52 09/17/16 07:52 09/17/16 07:52 Intake & Output 09/16/16 09/17/16 09/18/16 06:59 06:59 06:59 Intake Total 2897 2211 Output Total 0996 7134 225 Balance 972 -354 -225 Weight 135.5 kg 131 kg General appearance: PRESENT: no acute distress, disheveled, morbidly obese Head exam: PRESENT: atraumatic, normocephalic Eye exam: PRESENT: conjunctiva pale Mouth exam: PRESENT: other - ET tube in place Neck exam: ABSENT: carotid bruit, JVD, lymphadenopathy, thyromegaly Respiratory exam: PRESENT: decreased breath sounds, prolonged expiratory phas, rales, rhonchi, symmetrical, unlabored Cardiovascular exam: PRESENT: RRR, +S1, +S2 Pulses: PRESENT: normal radial pulses GI/Abdominal exam: PRESENT: normal bowel sounds, soft. ABSENT: distended, guarding, mass, organolmegaly, rebound, tenderness Rectal exam: PRESENT: deferred Gentrourinary exam: PRESENT: indwelling catheter Skin exam: PRESENT: dry, intact Results Laboratory Results: 09/17/16 05:50 09/17/16 05:50 09/17/16 09/17/16 09/17/16 05:50 05:50 05:50 WBC 3.0 L RBC 3.21 L Hgb 9.9 L Hct 29.7 L MCV 92 MCH 30.8 MCHC 33.3 RDW 13.5 Plt Count 106 L Carbonic Acid 1.14 HCO3/H2CO3 Ratio 22:1 ABG pH 7.46 H ABG pCO2 38.0 ABG pO2 61.4 L ABG HCO3 26.2 H ABG O2 Saturation 92.8 L ABG Base Excess 2.3 FiO2 30% Sodium 134.7 L Potassium 3.7 Chloride 96 L Carbon Dioxide 28 Anion Gap 11 BUN 76 H Creatinine 3.83 H Est GFR ( Amer) 14 L Est GFR (Non-Af Amer) 11 L Glucose 119 H Calcium 8.6 Impressions: Chest X-Ray 09/17/16 06:00 IMPRESSION: Slight increase in right basilar airspace disease. No other significant changes. Assessment & Plan - Diagnosis (1) Acute on chronic renal failure Is this a current diagnosis for this admission?: YesPlan: per nephrology positive fluid balance persist (2) Acute respiratory failure with hypoxia and hypercarbia Is this a current diagnosis for this admission?: YesPlan: Continue supplemental oxygenation and ventilation (3) Escherichia coli urinary tract infection Is this a current diagnosis for this admission?: YesPlan: on abx (4) Pneumonia Qualifiers: Pneumonia type: aspiration pneumonia Laterality: unspecified laterality Lung location: unspecified part of lung Is this a current diagnosis for this admission?: YesPlan: suspect aspiration culture pending - Time Critical Time spent with patient: 25-34 minutes - 30 minutes
--- NOTE | 2016-09-17 15:07 | PDOC PROGRESS REPORT ---
Subjective Progress Note for:: 09/17/16 Subjective:: D#4;intubated Physical Exam Vital Signs: Temp Pulse Resp BP Pulse Ox 97.8 F 70 16 114/62 97 09/17/16 07:52 09/17/16 07:52 09/17/16 07:52 09/17/16 07:52 09/17/16 07:52 Intake & Output 09/16/16 09/17/16 09/18/16 06:59 06:59 06:59 Intake Total 2897 2211 Output Total 4292 5504 225 Balance 972 -354 -225 Weight 135.5 kg 131 kg General appearance: PRESENT: no acute distress, disheveled, morbidly obese Head exam: PRESENT: atraumatic, normocephalic Eye exam: PRESENT: conjunctiva pale Mouth exam: PRESENT: tongue midline, other - ET tube in place Neck exam: ABSENT: carotid bruit, JVD, lymphadenopathy, thyromegaly Respiratory exam: PRESENT: decreased breath sounds, prolonged expiratory phas, rales, rhonchi, symmetrical, unlabored Cardiovascular exam: PRESENT: RRR, +S1, +S2 Pulses: PRESENT: normal radial pulses GI/Abdominal exam: PRESENT: normal bowel sounds, soft. ABSENT: distended, guarding, mass, organolmegaly, rebound, tenderness Rectal exam: PRESENT: deferred Gentrourinary exam: PRESENT: indwelling catheter Skin exam: PRESENT: dry, warm Results Laboratory Results: 09/17/16 05:50 09/17/16 05:50 09/17/16 09/17/16 09/17/16 05:50 05:50 05:50 WBC 3.0 L RBC 3.21 L Hgb 9.9 L Hct 29.7 L MCV 92 MCH 30.8 MCHC 33.3 RDW 13.5 Plt Count 106 L Carbonic Acid 1.14 HCO3/H2CO3 Ratio 22:1 ABG pH 7.46 H ABG pCO2 38.0 ABG pO2 61.4 L ABG HCO3 26.2 H ABG O2 Saturation 92.8 L ABG Base Excess 2.3 FiO2 30% Sodium 134.7 L Potassium 3.7 Chloride 96 L Carbon Dioxide 28 Anion Gap 11 BUN 76 H Creatinine 3.83 H Est GFR ( Amer) 14 L Est GFR (Non-Af Amer) 11 L Glucose 119 H Calcium 8.6 Impressions: Chest X-Ray 09/17/16 06:00 IMPRESSION: Slight increase in right basilar airspace disease. No other significant changes. Assessment & Plan - Diagnosis (1) Acute on chronic renal failure Is this a current diagnosis for this admission?: YesPlan: per nephrology positive fluid balance persist (2) Acute respiratory failure with hypoxia and hypercarbia Is this a current diagnosis for this admission?: YesPlan: Continue supplemental oxygenation and ventilation decreased FiO2 requirement (3) Escherichia coli urinary tract infection Is this a current diagnosis for this admission?: YesPlan: on abx (4) Pneumonia Qualifiers: Pneumonia type: aspiration pneumonia Laterality: unspecified laterality Lung location: unspecified part of lung Is this a current diagnosis for this admission?: YesPlan: suspect aspiration culture pending - Time Time Spent with patient: 25-34 minutes - 30 minutes
--- NOTE | 2016-09-17 19:22 | PDOC PROGRESS REPORT ---
Subjective Progress Note for:: 09/17/16 Subjective:: Patient was seen in the ICU today. Patient deteriorated on Saturday evening and failed the BiPAP and was transferred to ICU. The patient was promptly intubated. Currently she remains intubated and sedated. Discussions were done with the treating nurse Elaine. Patient initially had oliguric episode but seems to be opening up as of last 12 hours. His medications and the fluids the treating nurse. Currently on a low-dose of dopamine but not at the pressor rate Physical Exam Vital Signs: Temp Pulse Resp BP Pulse Ox 96.2 F L 66 16 129/66 H 96 09/17/16 16:00 09/17/16 16:00 09/17/16 16:00 09/17/16 16:00 09/17/16 16:00 Intake & Output 09/16/16 09/17/16 09/18/16 06:59 06:59 06:59 Intake Total 2897 2211 Output Total 1925 2565 1300 Balance 972 -354 -1300 Weight 135.5 kg 131 kg General appearance: PRESENT: other - Intubated and sedated. Respiratory exam: PRESENT: clear to auscultation julia, crackles. ABSENT: rales, rhonchi Cardiovascular exam: PRESENT: +S1, +S2, systolic murmur GI/Abdominal exam: PRESENT: soft. ABSENT: distended, firm, mass, renal bruit, tenderness Extremities exam: PRESENT: +1 edema Skin exam: PRESENT: erythema, mottled, rash, warm Results Laboratory Results: 09/17/16 05:50 09/17/16 05:50 09/17/16 09/17/16 09/17/16 05:50 05:50 05:50 WBC 3.0 L RBC 3.21 L Hgb 9.9 L Hct 29.7 L MCV 92 MCH 30.8 MCHC 33.3 RDW 13.5 Plt Count 106 L Carbonic Acid 1.14 HCO3/H2CO3 Ratio 22:1 ABG pH 7.46 H ABG pCO2 38.0 ABG pO2 61.4 L ABG HCO3 26.2 H ABG O2 Saturation 92.8 L ABG Base Excess 2.3 FiO2 30% Sodium 134.7 L Potassium 3.7 Chloride 96 L Carbon Dioxide 28 Anion Gap 11 BUN 76 H Creatinine 3.83 H Est GFR ( Amer) 14 L Est GFR (Non-Af Amer) 11 L Glucose 119 H Calcium 8.6 09/14/16 18:09 Catheterized Urine Urine Culture - Final Enterococcus Faecalis(Group D) Escherichia Coli 09/14/16 22:45 Tracheal Aspirate Gram Stain - Final 09/14/16 22:45 Tracheal Aspirate Sputum Culture - Final NORMAL ADRIANNE Impressions: Chest X-Ray 09/17/16 06:00 IMPRESSION: Slight increase in right basilar airspace disease. No other significant changes. Assessment & Plan - Diagnosis (1) Acute on chronic renal failure Is this a current diagnosis for this admission?: YesPlan: She still has a worsening renal numbers. However she has become nonoliguric which is encouraging. Discussed with Elaine. the treating nurse to continue on present lines of management. I note that the hospitalist service cut down the diuretics just a slight bit. No indications for initiation of hemodialysis. (2) Diabetes mellitus type 2 in obese Is this a current diagnosis for this admission?: Yes (3) Hyperkalemia Plan: Stable. (4) Anemia Qualifiers: Anemia type: unspecified type Qualified Code(s): D64.9 - Anemia, unspecified Is this a current diagnosis for this admission?: Yes (5) Congestive heart failure Qualifiers: Congestive heart failure type: unspecified congestive heart failure type Congestive heart failure chronicity: chronic Qualified Code(s): I50.9 - Heart failure, unspecified Is this a current diagnosis for this admission?: YesPlan: She is slowly responding to the diuretic regimen. I did review the echocardiogram shows severe diffuse LV ejection fraction of around 35% with multiple wall motion abnormalities. Surprisingly her right heart seems to be intact. Continue on the same and monitor. No indications for hemodialysis. (6) Obesity Qualifiers: Obesity severity: unspecified obesity severity Is this a current diagnosis for this admission?: Yes (7) Escherichia coli urinary tract infection Is this a current diagnosis for this admission?: YesPlan: On antibiotics
[2016-09-18] MEDS: METOLAZONE 5 MG TABLET NG SCH ×3 (02:32→18:04)
[2016-09-18] MEDS: IMIPENEM/CILASTATIN SODIUM 250 MG in NORMAL SALINE 100 ML IV SCH ×3 (02:33→18:03)
[2016-09-18] MEDS: PROPOFOL 100 ML IV PRN ×3 (02:33→21:56)
[2016-09-18] MEDS: LORAZEPAM 24 MG/ D5W 240 ML IV PRN (04:28)
[2016-09-18 05:46] LABS: HEMATOCRIT 31.4 % (36.0-47.0); HEMOGLOBIN 10.5 g/dL (12.0-15.5); HGB HCT DIFFERENCE 0.1; MEAN CORPUSCULAR HEMOGLOBIN 30.7 pg (27.0-33.4); MEAN CORPUSCULAR HGB CONC 33.5 g/dL (32.0-36.0); MEAN CORPUSCULAR VOLUME 92 fl (80-97); RED BLOOD COUNT 3.43 10^6/uL (3.72-5.28); RED CELL DISTRIBUTION WIDTH 13.4 % (11.5-14.0); WHITE BLOOD COUNT 2.7 10^3/uL (4.0-10.5)
[2016-09-18 05:51] LABS: ARTERIAL BLOOD BASE EXCESS 3.4 mmol/L; ARTERIAL BLOOD O2 SATURATION 93.2 % (94-98)
[2016-09-18 05:59] LABS: ANION GAP 11 (5-19); BLOOD UREA NITROGEN 72 mg/dL (7-20); CALCIUM 8.7 mg/dL (8.4-10.2); CARBON DIOXIDE 28 mmol/L (22-30); CHLORIDE 95 mmol/L (98-107); GLUCOSE 120 mg/dL (75-110); MAGNESIUM 1.8 mg/dL (1.6-2.3); PHOSPHORUS 5.6 mg/dL (2.5-4.5); POTASSIUM 3.7 mmol/L (3.6-5.0); SODIUM 134.4 mmol/L (137-145)
[2016-09-18] MEDS: FUROSEMIDE INJ/PF 40 MG/4 ML SDV IV SCH ×3 (06:23→21:33)
[2016-09-18] MEDS: ISOSORB DINIT/HYDRALAZINE HCL 20-37.5 MG TABLET NG SCH ×3 (06:24→21:34)
[2016-09-18] MEDS: ZINC SULFATE 220 MG CAPSULE NG SCH (11:54)
[2016-09-18] MEDS: AMIODARONE HCL 200 MG TABLET NG SCH (11:55)
[2016-09-18] MEDS: ASPIRIN 81 MG TABLET, CHEWABLE NG SCH (11:56)
[2016-09-18] MEDS: ASCORBIC ACID 500 MG TABLET NG SCH (11:56)
[2016-09-18] MEDS: FERROUS SULFATE LIQUID 300 MG/5 ML UDC NG SCH ×2 (11:56→18:03)
[2016-09-18] MEDS: HEPARIN SOD (PORCINE) 5,000 UNIT/ML 1 ML SYRINGE SUBCUT SCH ×2 (11:58→21:34)
[2016-09-18] MEDS: COLLAGENASE CLOSTRIDIUM HIST. OINT 30 GM TP SCH (11:59)
[2016-09-18] MEDS: DOPAMINE HCL/DEXTROSE 5%-WATER 250 ML IV PRN (11:59)
--- NOTE | 2016-09-18 13:52 | PDOC PROGRESS REPORT ---
Subjective Progress Note for:: 09/18/16 Subjective:: D#5;intubated Physical Exam Vital Signs: Temp Pulse Resp BP Pulse Ox 97.7 F 73 16 111/64 97 09/18/16 08:00 09/18/16 10:00 09/18/16 10:00 09/18/16 10:00 09/18/16 10:00 Intake & Output 09/17/16 09/18/16 09/19/16 06:59 06:59 06:59 Intake Total 2211 1259 Output Total 4722 3500 185 Balance -354 -2241 -185 Weight 131 kg 136.6 kg General appearance: PRESENT: no acute distress, disheveled, morbidly obese Head exam: PRESENT: atraumatic, normocephalic Eye exam: PRESENT: conjunctiva pale Mouth exam: PRESENT: dry mucosa, neck supple, other - ET tube in place Neck exam: ABSENT: carotid bruit, JVD, lymphadenopathy, thyromegaly Respiratory exam: PRESENT: decreased breath sounds, prolonged expiratory phas, rales, rhonchi, symmetrical, unlabored Cardiovascular exam: PRESENT: RRR, +S2 Pulses: PRESENT: normal radial pulses GI/Abdominal exam: PRESENT: normal bowel sounds, soft. ABSENT: distended, guarding, mass, organolmegaly, rebound, tenderness Rectal exam: PRESENT: deferred Gentrourinary exam: PRESENT: indwelling catheter Skin exam: PRESENT: dry, warm Results Laboratory Results: 09/18/16 05:35 09/18/16 05:35 09/18/16 09/18/16 09/18/16 05:35 05:35 05:35 WBC 2.7 L RBC 3.43 L Hgb 10.5 L Hct 31.4 L MCV 92 MCH 30.7 MCHC 33.5 RDW 13.4 Plt Count 105 L Carbonic Acid 1.22 HCO3/H2CO3 Ratio 22:1 ABG pH 7.45 ABG pCO2 40.4 ABG pO2 63.2 L ABG HCO3 27.6 H ABG O2 Saturation 93.2 L ABG Base Excess 3.4 FiO2 30% Sodium 134.4 L Potassium 3.7 Chloride 95 L Carbon Dioxide 28 Anion Gap 11 BUN 72 H Creatinine 3.50 H Est GFR ( Amer) 15 L Est GFR (Non-Af Amer) 13 L Glucose 120 H Calcium 8.7 Phosphorus 5.6 H Magnesium 1.8 09/14/16 18:09 Catheterized Urine Urine Culture - Final Enterococcus Faecalis(Group D) Escherichia Coli 09/14/16 22:45 Tracheal Aspirate Gram Stain - Final 09/14/16 22:45 Tracheal Aspirate Sputum Culture - Final NORMAL ADRIANNE Impressions: Chest X-Ray 09/18/16 06:00 IMPRESSION: As above. Assessment & Plan - Diagnosis (1) Acute on chronic renal failure Is this a current diagnosis for this admission?: YesPlan: per nephrology positive fluid balance persist however patient is now diuresing fairly well (2) Acute respiratory failure with hypoxia and hypercarbia Is this a current diagnosis for this admission?: YesPlan: Continued decreased FiO2 requirement (3) Escherichia coli urinary tract infection Is this a current diagnosis for this admission?: YesPlan: on abx (4) Pneumonia Qualifiers: Pneumonia type: aspiration pneumonia Laterality: unspecified laterality Lung location: unspecified part of lung Is this a current diagnosis for this admission?: YesPlan: suspect aspiration culture pending - Time Critical Time spent with patient: 25-34 minutes - 30 minute
[2016-09-18] MEDS: MORPHINE SULFATE 10 MG/ML INJ IV PRN (14:02)
--- NOTE | 2016-09-18 16:28 | PDOC PROGRESS REPORT ---
Subjective Progress Note for:: 09/18/16 Subjective:: Patient is intubated Physical Exam Vital Signs: Temp Pulse Resp BP Pulse Ox 98.1 F 74 16 131/73 H 97 09/18/16 12:00 09/18/16 14:00 09/18/16 14:00 09/18/16 14:00 09/18/16 14:00 Intake & Output 09/17/16 09/18/16 09/19/16 06:59 06:59 06:59 Intake Total 2211 1259 Output Total 2565 3500 810 Balance -354 -2241 -810 Weight 131 kg 136.6 kg General appearance: PRESENT: no acute distress Eye exam: PRESENT: conjunctiva pink. ABSENT: scleral icterus Mouth exam: PRESENT: moist, tongue midline Neck exam: ABSENT: JVD Respiratory exam: PRESENT: rhonchi - Coarse rhonchi bilaterally. ABSENT: rales , wheezes Cardiovascular exam: PRESENT: RRR. ABSENT: diastolic murmur, rubs, systolic murmur GI/Abdominal exam: PRESENT: normal bowel sounds, soft. ABSENT: distended, guarding, mass, organolmegaly, rebound, tenderness Extremities exam: PRESENT: pedal edema - Trace pedal edema. ABSENT: calf tenderness, clubbing Neurological exam: PRESENT: other - Intubated and sedated Psychiatric exam: PRESENT: other - Unable to assess Skin exam: PRESENT: dry, intact, warm. ABSENT: cyanosis, rash Results Laboratory Results: 09/18/16 05:35 09/18/16 05:35 09/18/16 09/18/16 09/18/16 05:35 05:35 05:35 WBC 2.7 L RBC 3.43 L Hgb 10.5 L Hct 31.4 L MCV 92 MCH 30.7 MCHC 33.5 RDW 13.4 Plt Count 105 L Carbonic Acid 1.22 HCO3/H2CO3 Ratio 22:1 ABG pH 7.45 ABG pCO2 40.4 ABG pO2 63.2 L ABG HCO3 27.6 H ABG O2 Saturation 93.2 L ABG Base Excess 3.4 FiO2 30% Sodium 134.4 L Potassium 3.7 Chloride 95 L Carbon Dioxide 28 Anion Gap 11 BUN 72 H Creatinine 3.50 H Est GFR ( Amer) 15 L Est GFR (Non-Af Amer) 13 L Glucose 120 H Calcium 8.7 Phosphorus 5.6 H Magnesium 1.8 09/14/16 18:09 Catheterized Urine Urine Culture - Final Enterococcus Faecalis(Group D) Escherichia Coli Impressions: Chest X-Ray 09/18/16 06:00 IMPRESSION: As above. Assessment & Plan - Diagnosis (1) Acute respiratory failure with hypoxia and hypercarbia Is this a current diagnosis for this admission?: YesPlan: Patient is still requiring intubation and mechanical ventilation. Pulmonary medicine is following and we appreciate their assistance. (2) Acute on chronic renal failure Is this a current diagnosis for this admission?: YesPlan: Stage IV chronic renal failure. Nephrology is following. (3) Diabetes mellitus type 2 in obese Is this a current diagnosis for this admission?: Yes (4) Escherichia coli urinary tract infection Is this a current diagnosis for this admission?: YesPlan: Continue with imipenem. (5) Hyperkalemia Is this a current diagnosis for this admission?: YesPlan: Resolved. (6) Pneumonia Qualifiers: Pneumonia type: aspiration pneumonia Laterality: unspecified laterality Lung location: unspecified part of lung Is this a current diagnosis for this admission?: YesPlan: Continue with imipenem. (7) Acute encephalopathy Is this a current diagnosis for this admission?: YesPlan: Most likely secondary to the underlying infection (8) Anemia Qualifiers: Anemia type: unspecified type Qualified Code(s): D64.9 - Anemia, unspecified Is this a current diagnosis for this admission?: YesPlan: Hemoglobin has remained stable. (9) Congestive heart failure Qualifiers: Congestive heart failure type: unspecified congestive heart failure type Congestive heart failure chronicity: chronic Qualified Code(s): I50.9 - Heart failure, unspecified Is this a current diagnosis for this admission?: YesPlan: Patient is getting IV Lasix and is diuresing. (10) Hyperkalemia Is this a current diagnosis for this admission?: YesPlan: Resolved. (11) Hypertension Qualifiers: Hypertension type: essential hypertension Qualified Code(s): I10 - Essential (primary) hypertension Is this a current diagnosis for this admission?: YesPlan: Blood pressure is under good control. (12) Obesity Qualifiers: Obesity severity: unspecified obesity severity Is this a current diagnosis for this admission?: Yes - Time Time Spent with patient: 25-34 minutes - Inpatient Certification Medical Necessity: Need Close Monitoring Due to Risk of Patient Decompensation - Plan Summary Plan Summary: We will try to wean off of the ventilator today if possible.
--- NOTE | 2016-09-18 16:41 | PDOC PROGRESS REPORT ---
Subjective Progress Note for:: 09/18/16 Subjective:: Patient was seen in the ICU today. Remains intubated and sedated. Discussions were done with the treating nurse Elaine. She is currently making decent amounts of urine and her labs were reviewed with the nurse. Physical Exam Vital Signs: Temp Pulse Resp BP Pulse Ox 97.7 F 62 14 97/50 L 97 09/18/16 16:00 09/18/16 16:00 09/18/16 16:00 09/18/16 16:00 09/18/16 16:00 Intake & Output 09/17/16 09/18/16 09/19/16 06:59 06:59 06:59 Intake Total 2211 1259 Output Total 2565 8130 1135 Balance -354 -9935 -1139 Weight 131 kg 136.6 kg Exam: Intubated and sedated. Respiratory exam: PRESENT: clear to auscultation julia. ABSENT: crackles, rhonchi Cardiovascular exam: PRESENT: +S1, +S2, systolic murmur GI/Abdominal exam: PRESENT: soft. ABSENT: distended, firm, mass, renal bruit, tenderness Extremities exam: PRESENT: +1 edema Skin exam: ABSENT: cyanosis, mottled, rash Results Laboratory Results: 09/18/16 05:35 09/18/16 05:35 09/18/16 09/18/16 09/18/16 05:35 05:35 05:35 WBC 2.7 L RBC 3.43 L Hgb 10.5 L Hct 31.4 L MCV 92 MCH 30.7 MCHC 33.5 RDW 13.4 Plt Count 105 L Carbonic Acid 1.22 HCO3/H2CO3 Ratio 22:1 ABG pH 7.45 ABG pCO2 40.4 ABG pO2 63.2 L ABG HCO3 27.6 H ABG O2 Saturation 93.2 L ABG Base Excess 3.4 FiO2 30% Sodium 134.4 L Potassium 3.7 Chloride 95 L Carbon Dioxide 28 Anion Gap 11 BUN 72 H Creatinine 3.50 H Est GFR ( Amer) 15 L Est GFR (Non-Af Amer) 13 L Glucose 120 H Calcium 8.7 Phosphorus 5.6 H Magnesium 1.8 09/14/16 18:09 Catheterized Urine Urine Culture - Final Enterococcus Faecalis(Group D) Escherichia Coli Impressions: Chest X-Ray 09/18/16 06:00 IMPRESSION: As above. Assessment & Plan - Diagnosis (1) Acute on chronic renal failure Is this a current diagnosis for this admission?: YesPlan: Her renal numbers are now stable. She is nonoliguric which is encouraging. Discussed with Elaine, the treating nurse to continue on present lines of management. No indications for initiation of hemodialysis. (2) Diabetes mellitus type 2 in obese Is this a current diagnosis for this admission?: Yes (3) Hyperkalemia Is this a current diagnosis for this admission?: YesPlan: Stable. (4) Anemia Qualifiers: Anemia type: unspecified type Qualified Code(s): D64.9 - Anemia, unspecified Is this a current diagnosis for this admission?: Yes (5) Congestive heart failure Qualifiers: Congestive heart failure type: unspecified congestive heart failure type Congestive heart failure chronicity: chronic Qualified Code(s): I50.9 - Heart failure, unspecified Is this a current diagnosis for this admission?: YesPlan: She is slowly responding to the diuretic regimen. Continue on the same and monitor. No indications for hemodialysis. (6) Obesity Qualifiers: Obesity severity: unspecified obesity severity Is this a current diagnosis for this admission?: Yes (7) Escherichia coli urinary tract infection Is this a current diagnosis for this admission?: YesPlan: On antibiotics
[2016-09-19] MEDS: IMIPENEM/CILASTATIN SODIUM 250 MG in NORMAL SALINE 100 ML IV SCH ×3 (03:20→17:28)
[2016-09-19] MEDS: METOLAZONE 5 MG TABLET NG SCH ×3 (03:21→17:28)
[2016-09-19] MEDS: FUROSEMIDE INJ/PF 40 MG/4 ML SDV IV SCH (05:52)
[2016-09-19] MEDS: ISOSORB DINIT/HYDRALAZINE HCL 20-37.5 MG TABLET NG SCH ×3 (05:52→21:35)
[2016-09-19 06:04] LABS: ARTERIAL BLOOD BASE EXCESS 1.8 mmol/L; ARTERIAL BLOOD O2 SATURATION 95.2 % (94-98)
[2016-09-19 06:24] LABS: ALANINE AMINOTRANSFERASE 31 U/L (9-52); ALBUMIN 2.6 g/dL (3.5-5.0); ALKALINE PHOSPHATASE 156 U/L (38-126); ANION GAP 12 (5-19); ASPARTATE AMINO TRANSFERASE 34 U/L (14-36); BILIRUBIN,TOTAL 0.7 mg/dL (0.2-1.3); BLOOD UREA NITROGEN 74 mg/dL (7-20); CALCIUM 8.7 mg/dL (8.4-10.2); CARBON DIOXIDE 28 mmol/L (22-30); CHLORIDE 95 mmol/L (98-107); CREATININE RESULT 3.84 mg/dL (0.52-1.25); GLUCOSE 118 mg/dL (75-110); MAGNESIUM 1.8 mg/dL (1.6-2.3); POTASSIUM 3.7 mmol/L (3.6-5.0); SODIUM 135.4 mmol/L (137-145); TOTAL PROTEIN 5.5 g/dL (6.3-8.2)
[2016-09-19 06:25] LABS: HEMATOCRIT 31.5 % (36.0-47.0); HEMOGLOBIN 10.5 g/dL (12.0-15.5); MEAN CORPUSCULAR HEMOGLOBIN 30.4 pg (27.0-33.4); MEAN CORPUSCULAR HGB CONC 33.4 g/dL (32.0-36.0); MEAN CORPUSCULAR VOLUME 91 fl (80-97); RED BLOOD COUNT 3.45 10^6/uL (3.72-5.28); RED CELL DISTRIBUTION WIDTH 13.3 % (11.5-14.0); WHITE BLOOD COUNT 3.3 10^3/uL (4.0-10.5)
[2016-09-19 06:36] LABS: BAND NEUTROPHILS % (MANUAL) 6 % (3-5); BASOPHILS % (MANUAL) 0 % (0-2); EOSINOPHILS % (MANUAL) 4 % (0-6); LYMPHOCYTES % (MANUAL) 25 % (13-45); TOTAL CELLS COUNTED 100
[2016-09-19 06:38] LABS: BURR CELLS SLIGHT; OVALOCYTES SLIGHT; POIKILOCYTOSIS SLIGHT; TOXIC GRANULATION SLIGHT
--- NOTE | 2016-09-19 10:17 | PDOC PROGRESS REPORT ---
Subjective Progress Note for:: 09/19/16 Subjective:: Patient is intubated Physical Exam Vital Signs: Temp Pulse Resp BP Pulse Ox 98.3 F 66 16 100/68 95 09/19/16 08:00 09/18/16 22:00 09/19/16 08:50 09/19/16 08:50 09/19/16 08:57 Intake & Output 09/18/16 09/19/16 09/20/16 06:59 06:59 06:59 Intake Total 1259 2392 Output Total 3500 2910 300 Balance -2241 -518 -300 Weight 136.6 kg 133.7 kg General appearance: PRESENT: no acute distress Eye exam: PRESENT: conjunctiva pink. ABSENT: scleral icterus Mouth exam: PRESENT: moist, tongue midline Neck exam: ABSENT: JVD Respiratory exam: PRESENT: clear to auscultation julia. ABSENT: rales, rhonchi, wheezes Cardiovascular exam: PRESENT: RRR. ABSENT: diastolic murmur, rubs, systolic murmur GI/Abdominal exam: PRESENT: normal bowel sounds, soft. ABSENT: distended, guarding, mass, organolmegaly, rebound, tenderness Extremities exam: ABSENT: calf tenderness, clubbing, pedal edema Neurological exam: PRESENT: other - Intubated Psychiatric exam: PRESENT: other - Unable to assess Skin exam: PRESENT: dry, intact, warm. ABSENT: cyanosis, rash Results Laboratory Results: 09/19/16 05:35 09/19/16 05:35 09/19/16 09/19/16 09/19/16 05:35 05:35 05:35 WBC 3.3 L RBC 3.45 L Hgb 10.5 L Hct 31.5 L MCV 91 MCH 30.4 MCHC 33.4 RDW 13.3 Plt Count 100 L Seg Neutrophils % Not Reportable Lymphocytes % Not Reportable Monocytes % Not Reportable Eosinophils % Not Reportable Basophils % Not Reportable Absolute Neutrophils Not Reportable Absolute Lymphocytes Not Reportable Absolute Monocytes Not Reportable Absolute Eosinophils Not Reportable Absolute Basophils Not Reportable Carbonic Acid 1.09 HCO3/H2CO3 Ratio 23:1 ABG pH 7.46 H ABG pCO2 36.2 ABG pO2 70.8 L ABG HCO3 25.4 ABG O2 Saturation 95.2 ABG Base Excess 1.8 FiO2 40% Sodium 135.4 L Potassium 3.7 Chloride 95 L Carbon Dioxide 28 Anion Gap 12 BUN 74 H Creatinine 3.84 H Est GFR ( Amer) 14 L Est GFR (Non-Af Amer) 11 L Glucose 118 H Calcium 8.7 Magnesium 1.8 Total Bilirubin 0.7 AST 34 ALT 31 Alkaline Phosphatase 156 H Total Protein 5.5 L Albumin 2.6 L Impressions: Chest X-Ray 09/19/16 06:00 IMPRESSION: No significant interval change. Moderate bibasilar opacity- effusion. Lines and tubes . Assessment & Plan - Diagnosis (1) Acute respiratory failure with hypoxia and hypercarbia Is this a current diagnosis for this admission?: YesPlan: Patient is still requiring intubation and mechanical ventilation. Pulmonary medicine is following and we appreciate their assistance. She is improving and hopefully can be weaned off the ventilator today. (2) Acute on chronic renal failure Is this a current diagnosis for this admission?: YesPlan: Stage IV chronic renal failure. Nephrology is following. (3) Diabetes mellitus type 2 in obese Is this a current diagnosis for this admission?: YesPlan: Continue with sliding scale insulin. (4) Escherichia coli urinary tract infection Is this a current diagnosis for this admission?: YesPlan: Continue with imipenem. (5) Hyperkalemia Is this a current diagnosis for this admission?: YesPlan: Resolved. (6) Pneumonia Qualifiers: Pneumonia type: aspiration pneumonia Laterality: unspecified laterality Lung location: unspecified part of lung Is this a current diagnosis for this admission?: YesPlan: Continue with imipenem. (7) Acute encephalopathy Is this a current diagnosis for this admission?: YesPlan: Most likely secondary to the underlying infection. She is somewhat more alert today. (8) Anemia Qualifiers: Anemia type: unspecified type Qualified Code(s): D64.9 - Anemia, unspecified Is this a current diagnosis for this admission?: YesPlan: Hemoglobin has remained stable. (9) Congestive heart failure Qualifiers: Congestive heart failure type: unspecified congestive heart failure type Congestive heart failure chronicity: chronic Qualified Code(s): I50.9 - Heart failure, unspecified Is this a current diagnosis for this admission?: YesPlan: Patient is getting IV Lasix and is diuresing. (10) Hyperkalemia Is this a current diagnosis for this admission?: YesPlan: Resolved. (11) Hypertension Qualifiers: Hypertension type: essential hypertension Qualified Code(s): I10 - Essential (primary) hypertension Is this a current diagnosis for this admission?: YesPlan: Blood pressure is under good control. (12) Obesity Qualifiers: Obesity severity: unspecified obesity severity Is this a current diagnosis for this admission?: Yes - Time Time Spent with patient: 25-34 minutes - Inpatient Certification Medical Necessity: Need Close Monitoring Due to Risk of Patient Decompensation
[2016-09-19] MEDS: HEPARIN SOD (PORCINE) 5,000 UNIT/ML 1 ML SYRINGE SUBCUT SCH ×2 (11:04→21:37)
[2016-09-19] MEDS: ASCORBIC ACID 500 MG TABLET NG SCH (11:06)
[2016-09-19] MEDS: ASPIRIN 81 MG TABLET, CHEWABLE NG SCH (11:06)
[2016-09-19] MEDS: ZINC SULFATE 220 MG CAPSULE NG SCH (11:06)
[2016-09-19] MEDS: AMIODARONE HCL 200 MG TABLET NG SCH (11:06)
[2016-09-19] MEDS: COLLAGENASE CLOSTRIDIUM HIST. OINT 30 GM TP SCH (11:07)
--- NOTE | 2016-09-19 16:45 | PDOC PROGRESS REPORT ---
Subjective Progress Note for:: 09/19/16 Subjective:: Patient seen in the ICU today. She remains intubated but less sedated as she is in the process of being weaned.Discussions were done with the treating nurse. Good progressive urine output. Hemodynamically stable. Physical Exam Vital Signs: Temp Pulse Resp BP Pulse Ox 97.0 F 72 10 L 131/79 H 97 09/19/16 12:00 09/19/16 12:00 09/19/16 13:15 09/19/16 13:05 09/19/16 13:15 Intake & Output 09/18/16 09/19/16 09/20/16 06:59 06:59 06:59 Intake Total 1259 2392 Output Total 3500 2910 650 Balance -2241 -518 -650 Weight 136.6 kg 133.7 kg General appearance: PRESENT: no acute distress Respiratory exam: PRESENT: clear to auscultation julia. ABSENT: crackles, stridor Cardiovascular exam: PRESENT: +S1, +S2, systolic murmur GI/Abdominal exam: PRESENT: soft. ABSENT: distended, firm, mass, renal bruit, tenderness Extremities exam: ABSENT: pedal edema Skin exam: PRESENT: dry, mottled, rash. ABSENT: erythema Results Laboratory Results: 09/19/16 05:35 09/19/16 05:35 09/19/16 09/19/16 09/19/16 05:35 05:35 05:35 WBC 3.3 L RBC 3.45 L Hgb 10.5 L Hct 31.5 L MCV 91 MCH 30.4 MCHC 33.4 RDW 13.3 Plt Count 100 L Seg Neutrophils % Not Reportable Lymphocytes % Not Reportable Monocytes % Not Reportable Eosinophils % Not Reportable Basophils % Not Reportable Absolute Neutrophils Not Reportable Absolute Lymphocytes Not Reportable Absolute Monocytes Not Reportable Absolute Eosinophils Not Reportable Absolute Basophils Not Reportable Carbonic Acid 1.09 HCO3/H2CO3 Ratio 23:1 ABG pH 7.46 H ABG pCO2 36.2 ABG pO2 70.8 L ABG HCO3 25.4 ABG O2 Saturation 95.2 ABG Base Excess 1.8 FiO2 40% Sodium 135.4 L Potassium 3.7 Chloride 95 L Carbon Dioxide 28 Anion Gap 12 BUN 74 H Creatinine 3.84 H Est GFR ( Amer) 14 L Est GFR (Non-Af Amer) 11 L Glucose 118 H Calcium 8.7 Magnesium 1.8 Total Bilirubin 0.7 AST 34 ALT 31 Alkaline Phosphatase 156 H Total Protein 5.5 L Albumin 2.6 L Impressions: Chest X-Ray 09/19/16 06:00 IMPRESSION: No significant interval change. Moderate bibasilar opacity- effusion. Lines and tubes . Assessment & Plan - Diagnosis (1) Acute on chronic renal failure Is this a current diagnosis for this admission?: YesPlan: Renal numbers are stable. However she is clinically on the dry side. We will cut and hold the Lasix back today and start tomorrow at the lower dose. Monitor (2) Diabetes mellitus type 2 in obese Is this a current diagnosis for this admission?: Yes (3) Hyperkalemia Is this a current diagnosis for this admission?: Yes (4) Anemia Qualifiers: Anemia type: unspecified type Qualified Code(s): D64.9 - Anemia, unspecified Is this a current diagnosis for this admission?: YesPlan: Being transfused now. (5) Congestive heart failure Qualifiers: Congestive heart failure type: unspecified congestive heart failure type Congestive heart failure chronicity: chronic Qualified Code(s): I50.9 - Heart failure, unspecified Is this a current diagnosis for this admission?: YesPlan: Stable. See how she responds to weaning off and extubation.She has had a good diuresis to the current medications and hopefully she will hold steady. (6) Obesity Qualifiers: Obesity severity: unspecified obesity severity Is this a current diagnosis for this admission?: Yes (7) Escherichia coli urinary tract infection Is this a current diagnosis for this admission?: YesPlan: On antibiotics
[2016-09-19] MEDS: PROPOFOL 100 ML IV PRN (17:42)
[2016-09-19] MEDS: DOPAMINE HCL/DEXTROSE 5%-WATER 250 ML IV PRN (17:42)
[2016-09-20] MEDS: METOLAZONE 5 MG TABLET NG SCH ×3 (02:15→17:13)
[2016-09-20] MEDS: IMIPENEM/CILASTATIN SODIUM 250 MG in NORMAL SALINE 100 ML IV SCH ×3 (02:17→17:13)
[2016-09-20 05:52] LABS: ARTERIAL BLOOD BASE EXCESS 0.1 mmol/L; ARTERIAL BLOOD O2 SATURATION 94.7 % (94-98)
[2016-09-20 05:59] LABS: HEMATOCRIT 32.9 % (36.0-47.0); HGB HCT DIFFERENCE 0.1; MEAN CORPUSCULAR HEMOGLOBIN 30.5 pg (27.0-33.4); MEAN CORPUSCULAR HGB CONC 33.5 g/dL (32.0-36.0); MEAN CORPUSCULAR VOLUME 91 fl (80-97); RED BLOOD COUNT 3.61 10^6/uL (3.72-5.28); RED CELL DISTRIBUTION WIDTH 13.7 % (11.5-14.0); WHITE BLOOD COUNT 4.5 10^3/uL (4.0-10.5)
[2016-09-20 06:01] LABS: ALANINE AMINOTRANSFERASE 39 U/L (9-52); ALBUMIN 2.6 g/dL (3.5-5.0); ALKALINE PHOSPHATASE 175 U/L (38-126); ANION GAP 14 (5-19); ASPARTATE AMINO TRANSFERASE 42 U/L (14-36); BILIRUBIN,TOTAL 0.6 mg/dL (0.2-1.3); BLOOD UREA NITROGEN 76 mg/dL (7-20); CALCIUM 8.4 mg/dL (8.4-10.2); CARBON DIOXIDE 25 mmol/L (22-30); CHLORIDE 95 mmol/L (98-107); CREATININE RESULT 3.62 mg/dL (0.52-1.25); GLUCOSE 112 mg/dL (75-110); MAGNESIUM 1.8 mg/dL (1.6-2.3); PHOSPHORUS 5.7 mg/dL (2.5-4.5); POTASSIUM 3.7 mmol/L (3.6-5.0); SODIUM 134.4 mmol/L (137-145); TOTAL PROTEIN 5.5 g/dL (6.3-8.2)
[2016-09-20] MEDS: ISOSORB DINIT/HYDRALAZINE HCL 20-37.5 MG TABLET NG SCH ×3 (06:24→21:29)
[2016-09-20 06:41] LABS: BAND NEUTROPHILS % (MANUAL) 1 % (3-5); BASOPHILS % (MANUAL) 0 % (0-2); EOSINOPHILS % (MANUAL) 5 % (0-6); LYMPHOCYTES % (MANUAL) 20 % (13-45); TOTAL CELLS COUNTED 100
[2016-09-20 06:42] LABS: HYPOCHROMASIA SLIGHT; OVALOCYTES SLIGHT; POIKILOCYTOSIS SLIGHT; POLYCHROMASIA SLIGHT
[2016-09-20] MEDS: ASPIRIN 81 MG TABLET, CHEWABLE NG SCH (09:37)
[2016-09-20] MEDS: AMIODARONE HCL 200 MG TABLET NG SCH (09:37)
[2016-09-20] MEDS: ASCORBIC ACID 500 MG TABLET NG SCH (09:38)
[2016-09-20] MEDS: ZINC SULFATE 220 MG CAPSULE NG SCH (09:39)
[2016-09-20] MEDS: FUROSEMIDE INJ/PF 20 MG/2 ML SDV IV SCH ×2 (09:39→21:29)
[2016-09-20] MEDS: COLLAGENASE CLOSTRIDIUM HIST. OINT 30 GM TP SCH (09:40)
[2016-09-20] MEDS: HEPARIN SOD (PORCINE) 5,000 UNIT/ML 1 ML SYRINGE SUBCUT SCH ×2 (09:42→21:28)
[2016-09-20] MEDS: PROPOFOL 100 ML IV PRN ×2 (10:02→21:28)
--- NOTE | 2016-09-20 13:02 | PDOC PROGRESS REPORT ---
Subjective Progress Note for:: 09/20/16 Subjective:: Patient is intubated Physical Exam Vital Signs: Temp Pulse Resp BP Pulse Ox 97.9 F 80 16 103/60 95 09/20/16 12:00 09/20/16 12:00 09/20/16 12:00 09/20/16 12:00 09/20/16 12:00 Intake & Output 09/19/16 09/20/16 09/21/16 06:59 06:59 06:59 Intake Total 2392 1169 Output Total 2916 6165 615 Balance -518 -1906 -615 Weight 133.7 kg 131.4 kg General appearance: PRESENT: no acute distress Eye exam: PRESENT: conjunctiva pink. ABSENT: scleral icterus Mouth exam: PRESENT: moist, tongue midline Neck exam: ABSENT: JVD Respiratory exam: PRESENT: clear to auscultation julia. ABSENT: rales, rhonchi, wheezes Cardiovascular exam: PRESENT: RRR. ABSENT: diastolic murmur, rubs, systolic murmur GI/Abdominal exam: PRESENT: normal bowel sounds, soft. ABSENT: distended, guarding, mass, organolmegaly, rebound, tenderness Extremities exam: ABSENT: calf tenderness, clubbing, pedal edema Neurological exam: PRESENT: other - Intubated Psychiatric exam: PRESENT: other - Unable to assess secondary to intubation. Skin exam: PRESENT: dry, intact, warm. ABSENT: cyanosis, rash Results Laboratory Results: 09/20/16 05:25 09/20/16 05:25 09/20/16 09/20/16 09/20/16 05:25 05:25 05:25 WBC 4.5 RBC 3.61 L Hgb 11.0 L Hct 32.9 L MCV 91 MCH 30.5 MCHC 33.5 RDW 13.7 Plt Count 111 L Seg Neutrophils % Not Reportable Lymphocytes % Not Reportable Monocytes % Not Reportable Eosinophils % Not Reportable Basophils % Not Reportable Absolute Neutrophils Not Reportable Absolute Lymphocytes Not Reportable Absolute Monocytes Not Reportable Absolute Eosinophils Not Reportable Absolute Basophils Not Reportable Carbonic Acid 1.11 HCO3/H2CO3 Ratio 21:1 ABG pH 7.43 ABG pCO2 37.0 ABG pO2 70.2 L ABG HCO3 24.1 ABG O2 Saturation 94.7 ABG Base Excess 0.1 FiO2 40% Sodium 134.4 L Potassium 3.7 Chloride 95 L Carbon Dioxide 25 Anion Gap 14 BUN 76 H Creatinine 3.62 H Est GFR ( Amer) 15 L Est GFR (Non-Af Amer) 12 L Glucose 112 H Calcium 8.4 Phosphorus 5.7 H Magnesium 1.8 Total Bilirubin 0.6 AST 42 H ALT 39 Alkaline Phosphatase 175 H Total Protein 5.5 L Albumin 2.6 L 09/14/16 20:23 Blood Blood Culture - Final NO GROWTH IN 5 DAYS 09/14/16 19:22 Blood Blood Culture - Final NO GROWTH IN 5 DAYS Impressions: Chest X-Ray 09/20/16 06:00 IMPRESSION: No significant interval change. Assessment & Plan - Diagnosis (1) Acute respiratory failure with hypoxia and hypercarbia Is this a current diagnosis for this admission?: YesPlan: Patient is still requiring intubation and mechanical ventilation. Pulmonary medicine is following and we appreciate their assistance. She is improving and hopefully can be weaned off the ventilator today. (2) Acute on chronic renal failure Is this a current diagnosis for this admission?: YesPlan: Stage IV chronic renal failure. Nephrology is following. (3) Diabetes mellitus type 2 in obese Is this a current diagnosis for this admission?: YesPlan: Continue with sliding scale insulin. (4) Escherichia coli urinary tract infection Is this a current diagnosis for this admission?: YesPlan: Continue with imipenem. (5) Hyperkalemia Is this a current diagnosis for this admission?: YesPlan: Resolved. (6) Pneumonia Qualifiers: Pneumonia type: aspiration pneumonia Laterality: unspecified laterality Lung location: unspecified part of lung Is this a current diagnosis for this admission?: YesPlan: Continue with imipenem. (7) Acute encephalopathy Is this a current diagnosis for this admission?: YesPlan: Most likely secondary to the underlying infection. (8) Anemia Qualifiers: Anemia type: unspecified type Qualified Code(s): D64.9 - Anemia, unspecified Is this a current diagnosis for this admission?: YesPlan: Hemoglobin has remained stable. (9) Congestive heart failure Qualifiers: Congestive heart failure type: unspecified congestive heart failure type Congestive heart failure chronicity: chronic Qualified Code(s): I50.9 - Heart failure, unspecified Is this a current diagnosis for this admission?: YesPlan: Patient is getting IV Lasix and is diuresing. (10) Hypertension Qualifiers: Hypertension type: essential hypertension Qualified Code(s): I10 - Essential (primary) hypertension Is this a current diagnosis for this admission?: YesPlan: Blood pressure is under good control. (11) Obesity Qualifiers: Obesity severity: unspecified obesity severity Is this a current diagnosis for this admission?: Yes - Time Time Spent with patient: 25-34 minutes - Plan Summary Plan Summary: We'll continue to try to wean off of the ventilator.
--- NOTE | 2016-09-20 13:41 | PDOC PROGRESS REPORT ---
Subjective Progress Note for:: 09/20/16 Subjective:: Mrs. Cruz today in the ICU. She still remains intubated but she is less sedated. She is in the process of being weaned off. Discussions were done with the treating nurse Vance. She is making good urine output. Labs were reviewed with him as well. Physical Exam Vital Signs: Temp Pulse Resp BP Pulse Ox 97.9 F 80 16 103/60 95 09/20/16 12:00 09/20/16 12:00 09/20/16 12:00 09/20/16 12:00 09/20/16 12:00 Intake & Output 09/19/16 09/20/16 09/21/16 06:59 06:59 06:59 Intake Total 2392 1169 Output Total 2910 3125 615 Balance -518 -1906 -615 Weight 133.7 kg 131.4 kg General appearance: PRESENT: no acute distress Respiratory exam: PRESENT: clear to auscultation julia. ABSENT: crackles, rhonchi Cardiovascular exam: PRESENT: +S1, +S2, systolic murmur GI/Abdominal exam: PRESENT: soft. ABSENT: distended, firm, mass, renal bruit, tenderness Extremities exam: PRESENT: +1 edema Skin exam: PRESENT: rash. ABSENT: erythema, mottled Results Laboratory Results: 09/20/16 05:25 09/20/16 05:25 09/20/16 09/20/16 09/20/16 05:25 05:25 05:25 WBC 4.5 RBC 3.61 L Hgb 11.0 L Hct 32.9 L MCV 91 MCH 30.5 MCHC 33.5 RDW 13.7 Plt Count 111 L Seg Neutrophils % Not Reportable Lymphocytes % Not Reportable Monocytes % Not Reportable Eosinophils % Not Reportable Basophils % Not Reportable Absolute Neutrophils Not Reportable Absolute Lymphocytes Not Reportable Absolute Monocytes Not Reportable Absolute Eosinophils Not Reportable Absolute Basophils Not Reportable Carbonic Acid 1.11 HCO3/H2CO3 Ratio 21:1 ABG pH 7.43 ABG pCO2 37.0 ABG pO2 70.2 L ABG HCO3 24.1 ABG O2 Saturation 94.7 ABG Base Excess 0.1 FiO2 40% Sodium 134.4 L Potassium 3.7 Chloride 95 L Carbon Dioxide 25 Anion Gap 14 BUN 76 H Creatinine 3.62 H Est GFR ( Amer) 15 L Est GFR (Non-Af Amer) 12 L Glucose 112 H Calcium 8.4 Phosphorus 5.7 H Magnesium 1.8 Total Bilirubin 0.6 AST 42 H ALT 39 Alkaline Phosphatase 175 H Total Protein 5.5 L Albumin 2.6 L 09/14/16 20:23 Blood Blood Culture - Final NO GROWTH IN 5 DAYS 09/14/16 19:22 Blood Blood Culture - Final NO GROWTH IN 5 DAYS Impressions: Chest X-Ray 09/20/16 06:00 IMPRESSION: No significant interval change. Assessment & Plan - Diagnosis (1) Acute on chronic renal failure Is this a current diagnosis for this admission?: YesPlan: Stable. Nonoliguric. Continue present lines of management. No indications for renal replacements (2) Diabetes mellitus type 2 in obese Is this a current diagnosis for this admission?: Yes (3) Hyperkalemia Is this a current diagnosis for this admission?: Yes (4) Anemia Qualifiers: Anemia type: unspecified type Qualified Code(s): D64.9 - Anemia, unspecified Is this a current diagnosis for this admission?: Yes (5) Congestive heart failure Qualifiers: Congestive heart failure type: unspecified congestive heart failure type Congestive heart failure chronicity: chronic Qualified Code(s): I50.9 - Heart failure, unspecified Is this a current diagnosis for this admission?: YesPlan: Stable. See how she responds to weaning off and extubation.She has had a good diuresis to the current medications and hopefully she will hold steady. (6) Obesity Qualifiers: Obesity severity: unspecified obesity severity Is this a current diagnosis for this admission?: Yes (7) Escherichia coli urinary tract infection Is this a current diagnosis for this admission?: YesPlan: On antibiotics
--- NOTE | 2016-09-20 16:01 | PDOC PROGRESS REPORT ---
Subjective Progress Note for:: 09/20/16 Subjective:: D#6;intubated Physical Exam Vital Signs: Temp Pulse Resp BP Pulse Ox 98.3 F 96 17 108/57 L 93 09/20/16 14:00 09/20/16 14:00 09/20/16 15:05 09/20/16 15:05 09/20/16 15:05 Intake & Output 09/19/16 09/20/16 09/21/16 06:59 06:59 06:59 Intake Total 2392 1169 Output Total 2917 0385 615 Balance -518 -1906 -615 Weight 133.7 kg 131.4 kg General appearance: PRESENT: no acute distress, disheveled, morbidly obese Head exam: PRESENT: atraumatic, normocephalic Eye exam: PRESENT: conjunctiva pale Neck exam: ABSENT: carotid bruit, JVD, lymphadenopathy, thyromegaly Respiratory exam: PRESENT: decreased breath sounds, prolonged expiratory phas, rales, symmetrical, unlabored Cardiovascular exam: PRESENT: RRR, +S1, +S2 Pulses: PRESENT: normal radial pulses GI/Abdominal exam: PRESENT: normal bowel sounds, soft. ABSENT: distended, guarding, mass, organolmegaly, rebound, tenderness Rectal exam: PRESENT: deferred Gentrourinary exam: PRESENT: indwelling catheter Musculoskeletal exam: PRESENT: normal inspection Skin exam: PRESENT: dry, warm Results Laboratory Results: 09/20/16 05:25 09/20/16 05:25 09/20/16 09/20/16 09/20/16 05:25 05:25 05:25 WBC 4.5 RBC 3.61 L Hgb 11.0 L Hct 32.9 L MCV 91 MCH 30.5 MCHC 33.5 RDW 13.7 Plt Count 111 L Seg Neutrophils % Not Reportable Lymphocytes % Not Reportable Monocytes % Not Reportable Eosinophils % Not Reportable Basophils % Not Reportable Absolute Neutrophils Not Reportable Absolute Lymphocytes Not Reportable Absolute Monocytes Not Reportable Absolute Eosinophils Not Reportable Absolute Basophils Not Reportable Carbonic Acid 1.11 HCO3/H2CO3 Ratio 21:1 ABG pH 7.43 ABG pCO2 37.0 ABG pO2 70.2 L ABG HCO3 24.1 ABG O2 Saturation 94.7 ABG Base Excess 0.1 FiO2 40% Sodium 134.4 L Potassium 3.7 Chloride 95 L Carbon Dioxide 25 Anion Gap 14 BUN 76 H Creatinine 3.62 H Est GFR ( Amer) 15 L Est GFR (Non-Af Amer) 12 L Glucose 112 H Calcium 8.4 Phosphorus 5.7 H Magnesium 1.8 Total Bilirubin 0.6 AST 42 H ALT 39 Alkaline Phosphatase 175 H Total Protein 5.5 L Albumin 2.6 L 09/14/16 20:23 Blood Blood Culture - Final NO GROWTH IN 5 DAYS 09/14/16 19:22 Blood Blood Culture - Final NO GROWTH IN 5 DAYS Impressions: Chest X-Ray 09/20/16 06:00 IMPRESSION: No significant interval change. Assessment & Plan - Diagnosis (1) Acute on chronic renal failure Is this a current diagnosis for this admission?: YesPlan: Improved continues to be volume overloaded (2) Acute respiratory failure with hypoxia and hypercarbia Is this a current diagnosis for this admission?: YesPlan: Difficulty sustaining acceptable respiratory rate on pressure support and CPAP (3) Escherichia coli urinary tract infection Is this a current diagnosis for this admission?: YesPlan: on abx (4) Pneumonia Qualifiers: Pneumonia type: aspiration pneumonia Laterality: unspecified laterality Lung location: unspecified part of lung Is this a current diagnosis for this admission?: YesPlan: Aspiration plus volume overload overall improving T-max 98.3 no leukocytosis small number of bands - Time Critical Time spent with patient: 25-34 minutes - 30 minutes
--- NOTE | 2016-09-20 16:04 | PDOC PROGRESS REPORT ---
Subjective Progress Note for:: 09/19/16 Subjective:: D#6;intubated Physical Exam Vital Signs: Temp Pulse Resp BP Pulse Ox 97.9 F 66 16 124/81 97 09/19/16 04:00 09/18/16 22:00 09/19/16 07:20 09/19/16 07:20 09/19/16 07:54 Intake & Output 09/18/16 09/19/16 09/20/16 06:59 06:59 06:59 Intake Total 1259 2392 Output Total 3500 2910 Balance -2241 -518 Weight 136.6 kg 133.7 kg General appearance: PRESENT: disheveled, morbidly obese Head exam: PRESENT: atraumatic, normocephalic Eye exam: PRESENT: conjunctiva pale Mouth exam: PRESENT: neck supple, other - ET tube in place Neck exam: ABSENT: carotid bruit, JVD, lymphadenopathy, thyromegaly Respiratory exam: PRESENT: decreased breath sounds, prolonged expiratory phas, rales, rhonchi, unlabored, wheezes Cardiovascular exam: PRESENT: RRR, +S1, +S2 Pulses: PRESENT: normal radial pulses GI/Abdominal exam: PRESENT: normal bowel sounds, soft. ABSENT: distended, guarding, mass, organolmegaly, rebound, tenderness Rectal exam: PRESENT: deferred Gentrourinary exam: PRESENT: indwelling catheter Skin exam: PRESENT: other - Right heel boot Results Laboratory Results: 09/19/16 05:35 09/19/16 05:35 09/19/16 09/19/16 09/19/16 05:35 05:35 05:35 WBC 3.3 L RBC 3.45 L Hgb 10.5 L Hct 31.5 L MCV 91 MCH 30.4 MCHC 33.4 RDW 13.3 Plt Count 100 L Seg Neutrophils % Not Reportable Lymphocytes % Not Reportable Monocytes % Not Reportable Eosinophils % Not Reportable Basophils % Not Reportable Absolute Neutrophils Not Reportable Absolute Lymphocytes Not Reportable Absolute Monocytes Not Reportable Absolute Eosinophils Not Reportable Absolute Basophils Not Reportable Carbonic Acid 1.09 HCO3/H2CO3 Ratio 23:1 ABG pH 7.46 H ABG pCO2 36.2 ABG pO2 70.8 L ABG HCO3 25.4 ABG O2 Saturation 95.2 ABG Base Excess 1.8 FiO2 40% Sodium 135.4 L Potassium 3.7 Chloride 95 L Carbon Dioxide 28 Anion Gap 12 BUN 74 H Creatinine 3.84 H Est GFR ( Amer) 14 L Est GFR (Non-Af Amer) 11 L Glucose 118 H Calcium 8.7 Magnesium 1.8 Total Bilirubin 0.7 AST 34 ALT 31 Alkaline Phosphatase 156 H Total Protein 5.5 L Albumin 2.6 L Impressions: Chest X-Ray 09/19/16 06:00 IMPRESSION: No significant interval change. Moderate bibasilar opacity- effusion. Lines and tubes . Assessment & Plan - Diagnosis (1) Acute on chronic renal failure Is this a current diagnosis for this admission?: YesPlan: Improved continues to be volume overloaded (2) Acute respiratory failure with hypoxia and hypercarbia Is this a current diagnosis for this admission?: YesPlan: Less FiO2 requirements limited sustainability on pressure support and CPAP (3) Escherichia coli urinary tract infection Is this a current diagnosis for this admission?: YesPlan: on abx (4) Pneumonia Qualifiers: Pneumonia type: aspiration pneumonia Laterality: unspecified laterality Lung location: unspecified part of lung Is this a current diagnosis for this admission?: YesPlan: Aspiration plus volume overload T-max 98 WBC 3 mild bandemia no positive sputum cultures thus far - Time Critical Time spent with patient: 15-24 minutes - 30 minutes
[2016-09-21] MEDS: METOLAZONE 5 MG TABLET NG SCH ×3 (03:06→17:36)
[2016-09-21] MEDS: IMIPENEM/CILASTATIN SODIUM 250 MG in NORMAL SALINE 100 ML IV SCH ×3 (03:06→17:37)
[2016-09-21] MEDS: ISOSORB DINIT/HYDRALAZINE HCL 20-37.5 MG TABLET NG SCH ×3 (06:24→21:50)
[2016-09-21 06:30] LABS: ABSOLUTE EOSINOPHILS # (AUTO) 0.2 10^3/uL (0.0-0.6); ABSOLUTE LYMPHOCYTES (AUTO) 0.9 10^3/uL (0.5-4.7); ABSOLUTE MONOCYTES (AUTO) 0.6 10^3/uL (0.1-1.4); ARTERIAL BLOOD BASE EXCESS 3.2 mmol/L; ARTERIAL BLOOD O2 SATURATION 95.7 % (94-98); BASOPHILS % (AUTO) 0.8 % (0-2); EOSINOPHILS % (AUTO) 4.3 % (0-6); HEMATOCRIT 29.9 % (36.0-47.0); HGB HCT DIFFERENCE 0.1; MEAN CORPUSCULAR HEMOGLOBIN 30.6 pg (27.0-33.4); MEAN CORPUSCULAR HGB CONC 33.5 g/dL (32.0-36.0); MEAN CORPUSCULAR VOLUME 91 fl (80-97); RED BLOOD COUNT 3.28 10^6/uL (3.72-5.28); RED CELL DISTRIBUTION WIDTH 13.5 % (11.5-14.0); SEGMENTED NEUTROPHILS % (AUTO) 63.9 % (42-78); WHITE BLOOD COUNT 4.7 10^3/uL (4.0-10.5)
[2016-09-21 06:57] LABS: ANION GAP 12 (5-19); BLOOD UREA NITROGEN 78 mg/dL (7-20); CALCIUM 8.9 mg/dL (8.4-10.2); CARBON DIOXIDE 28 mmol/L (22-30); CHLORIDE 96 mmol/L (98-107); CREATININE RESULT 3.64 mg/dL (0.52-1.25); GLUCOSE 127 mg/dL (75-110); POTASSIUM 3.4 mmol/L (3.6-5.0); SODIUM 135.8 mmol/L (137-145)
[2016-09-21] MEDS: ASCORBIC ACID 500 MG TABLET NG SCH (10:57)
[2016-09-21] MEDS: ZINC SULFATE 220 MG CAPSULE NG SCH (10:58)
[2016-09-21] MEDS: ASPIRIN 81 MG TABLET, CHEWABLE NG SCH (10:58)
[2016-09-21] MEDS: FUROSEMIDE INJ/PF 20 MG/2 ML SDV IV SCH ×2 (10:58→21:49)
[2016-09-21] MEDS: AMIODARONE HCL 200 MG TABLET NG SCH (10:58)
[2016-09-21] MEDS: COLLAGENASE CLOSTRIDIUM HIST. OINT 30 GM TP SCH (11:07)
[2016-09-21] MEDS: HEPARIN SOD (PORCINE) 5,000 UNIT/ML 1 ML SYRINGE SUBCUT SCH ×2 (11:08→21:50)
--- NOTE | 2016-09-21 15:20 | PDOC PROGRESS REPORT ---
Subjective Progress Note for:: 09/21/16 Subjective:: Patient is intubated Physical Exam Vital Signs: Temp Pulse Resp BP Pulse Ox 98.2 F 87 21 H 107/47 L 91 L 09/21/16 12:00 09/21/16 10:00 09/21/16 13:06 09/21/16 13:06 09/21/16 13:06 Intake & Output 09/20/16 09/21/16 09/22/16 06:59 06:59 06:59 Intake Total 1169 1409 Output Total 3075 2040 450 Balance -1906 -631 -450 Weight 131.4 kg 132.9 kg Eye exam: PRESENT: conjunctiva pink. ABSENT: scleral icterus Mouth exam: PRESENT: moist, tongue midline Respiratory exam: PRESENT: clear to auscultation julia. ABSENT: rales, rhonchi, wheezes Cardiovascular exam: PRESENT: RRR. ABSENT: diastolic murmur, rubs, systolic murmur GI/Abdominal exam: PRESENT: normal bowel sounds, soft. ABSENT: distended, guarding, mass, organolmegaly, rebound, tenderness Extremities exam: ABSENT: calf tenderness, clubbing, pedal edema Neurological exam: PRESENT: other - Intubated Psychiatric exam: PRESENT: other - Unable to assess Skin exam: PRESENT: dry, intact, warm. ABSENT: cyanosis, rash Results Laboratory Results: 09/21/16 06:15 09/21/16 06:15 09/21/16 09/21/16 09/21/16 06:15 06:15 06:15 WBC 4.7 RBC 3.28 L Hgb 10.0 L Hct 29.9 L MCV 91 MCH 30.6 MCHC 33.5 RDW 13.5 Plt Count 109 L Seg Neutrophils % 63.9 Lymphocytes % 19.0 Monocytes % 12.0 Eosinophils % 4.3 Basophils % 0.8 Absolute Neutrophils 3.0 Absolute Lymphocytes 0.9 Absolute Monocytes 0.6 Absolute Eosinophils 0.2 Absolute Basophils 0.0 Carbonic Acid 1.20 HCO3/H2CO3 Ratio 22:1 ABG pH 7.45 ABG pCO2 39.9 ABG pO2 75.2 L ABG HCO3 27.4 H ABG O2 Saturation 95.7 ABG Base Excess 3.2 FiO2 50% Sodium 135.8 L Potassium 3.4 L Chloride 96 L Carbon Dioxide 28 Anion Gap 12 BUN 78 H Creatinine 3.64 H Est GFR ( Amer) 15 L Est GFR (Non-Af Amer) 12 L Glucose 127 H Calcium 8.9 Impressions: Chest X-Ray 09/20/16 06:00 IMPRESSION: No significant interval change. Assessment & Plan - Diagnosis (1) Acute respiratory failure with hypoxia and hypercarbia Is this a current diagnosis for this admission?: YesPlan: Patient is still requiring intubation and mechanical ventilation. Pulmonary medicine is following and we appreciate their assistance. She is improving and hopefully can be weaned off the ventilator today. (2) Acute on chronic renal failure Is this a current diagnosis for this admission?: YesPlan: Stage IV chronic renal failure. Nephrology is following. (3) Diabetes mellitus type 2 in obese Is this a current diagnosis for this admission?: YesPlan: Continue with sliding scale insulin. (4) Escherichia coli urinary tract infection Is this a current diagnosis for this admission?: YesPlan: Continue with imipenem. (5) Hyperkalemia Is this a current diagnosis for this admission?: YesPlan: Resolved. (6) Pneumonia Qualifiers: Pneumonia type: aspiration pneumonia Laterality: unspecified laterality Lung location: unspecified part of lung Is this a current diagnosis for this admission?: YesPlan: Continue with imipenem. (7) Acute encephalopathy Is this a current diagnosis for this admission?: YesPlan: Most likely secondary to the underlying infection. (8) Anemia Qualifiers: Anemia type: unspecified type Qualified Code(s): D64.9 - Anemia, unspecified Is this a current diagnosis for this admission?: YesPlan: Hemoglobin has remained stable. (9) Congestive heart failure Qualifiers: Congestive heart failure type: unspecified congestive heart failure type Congestive heart failure chronicity: chronic Qualified Code(s): I50.9 - Heart failure, unspecified Is this a current diagnosis for this admission?: YesPlan: Patient is getting IV Lasix and is diuresing. (10) Hypertension Qualifiers: Hypertension type: essential hypertension Qualified Code(s): I10 - Essential (primary) hypertension Is this a current diagnosis for this admission?: YesPlan: Blood pressure is under good control. (11) Obesity Qualifiers: Obesity severity: unspecified obesity severity Is this a current diagnosis for this admission?: Yes - Time Time Spent with patient: 25-34 minutes - Inpatient Certification Medical Necessity: Need Close Monitoring Due to Risk of Patient Decompensation - Plan Summary Plan Summary: Patient will be placed on a weaning trial again today and hopefully extubated today.
--- NOTE | 2016-09-21 18:21 | PDOC PROGRESS REPORT ---
Subjective Progress Note for:: 09/21/16 Subjective:: Was seen in the ICU today. Her brother is by her bedside. Discussions were done with the treating nurse Ale. She is still remains intubated. However she is in the process of being weaned and hopefully extubated today. She is off all the pressors. However she is on low-dose of dopamine. She is making good urine output. Physical Exam Vital Signs: Temp Pulse Resp BP Pulse Ox 98.2 F 87 27 H 130/46 H 93 09/21/16 16:00 09/21/16 10:00 09/21/16 18:15 09/21/16 18:06 09/21/16 18:15 Intake & Output 09/20/16 09/21/16 09/22/16 06:59 06:59 06:59 Intake Total 1169 1409 464 Output Total 3075 2040 700 Balance -1906 -631 -236 Weight 131.4 kg 132.9 kg Exam: Intubated and mildly sedated. Respiratory exam: PRESENT: clear to auscultation julia. ABSENT: crackles, rhonchi Cardiovascular exam: PRESENT: +S1, +S2, systolic murmur GI/Abdominal exam: PRESENT: soft. ABSENT: distended, firm, mass, renal bruit, tenderness Extremities exam: PRESENT: +1 edema Results Laboratory Results: 09/21/16 06:15 09/21/16 06:15 09/21/16 09/21/16 09/21/16 06:15 06:15 06:15 WBC 4.7 RBC 3.28 L Hgb 10.0 L Hct 29.9 L MCV 91 MCH 30.6 MCHC 33.5 RDW 13.5 Plt Count 109 L Seg Neutrophils % 63.9 Lymphocytes % 19.0 Monocytes % 12.0 Eosinophils % 4.3 Basophils % 0.8 Absolute Neutrophils 3.0 Absolute Lymphocytes 0.9 Absolute Monocytes 0.6 Absolute Eosinophils 0.2 Absolute Basophils 0.0 Carbonic Acid 1.20 HCO3/H2CO3 Ratio 22:1 ABG pH 7.45 ABG pCO2 39.9 ABG pO2 75.2 L ABG HCO3 27.4 H ABG O2 Saturation 95.7 ABG Base Excess 3.2 FiO2 50% Sodium 135.8 L Potassium 3.4 L Chloride 96 L Carbon Dioxide 28 Anion Gap 12 BUN 78 H Creatinine 3.64 H Est GFR ( Amer) 15 L Est GFR (Non-Af Amer) 12 L Glucose 127 H Calcium 8.9 Impressions: Chest X-Ray 09/20/16 06:00 IMPRESSION: No significant interval change. Assessment & Plan - Diagnosis (1) Acute on chronic renal failure Is this a current diagnosis for this admission?: YesPlan: Stable. Nonoliguric. Continue present lines of management. No indications for renal replacements (2) Diabetes mellitus type 2 in obese Is this a current diagnosis for this admission?: Yes (3) Hyperkalemia Is this a current diagnosis for this admission?: YesPlan: Stable. (4) Anemia Qualifiers: Anemia type: unspecified type Qualified Code(s): D64.9 - Anemia, unspecified Is this a current diagnosis for this admission?: Yes (5) Congestive heart failure Qualifiers: Congestive heart failure type: unspecified congestive heart failure type Congestive heart failure chronicity: chronic Qualified Code(s): I50.9 - Heart failure, unspecified Is this a current diagnosis for this admission?: YesPlan: Stable. See how she responds to weaning off and extubation.She has had a good diuresis to the current medications and hopefully she will hold steady. (6) Obesity Qualifiers: Obesity severity: unspecified obesity severity Is this a current diagnosis for this admission?: Yes (7) Escherichia coli urinary tract infection Is this a current diagnosis for this admission?: YesPlan: On antibiotics
[2016-09-21 18:22] LABS: ARTERIAL BLOOD BASE EXCESS 1.6 mmol/L; ARTERIAL BLOOD O2 SATURATION 92.1 % (94-98)
[2016-09-21 19:50] LABS: ARTERIAL BLOOD BASE EXCESS 2.8 mmol/L; ARTERIAL BLOOD O2 SATURATION 95.5 % (94-98)
[2016-09-21] MEDS: DOPAMINE HCL/DEXTROSE 5%-WATER 250 ML IV PRN (21:49)
[2016-09-22] MEDS: METOLAZONE 5 MG TABLET NG SCH ×3 (01:02→18:00)
[2016-09-22] MEDS: IMIPENEM/CILASTATIN SODIUM 250 MG in NORMAL SALINE 100 ML IV SCH (01:21)
[2016-09-22] MEDS: ISOSORB DINIT/HYDRALAZINE HCL 20-37.5 MG TABLET NG SCH ×3 (05:16→21:13)
[2016-09-22 05:51] LABS: ARTERIAL BLOOD BASE EXCESS 1.9 mmol/L; ARTERIAL BLOOD O2 SATURATION 94.7 % (94-98)
[2016-09-22 06:01] LABS: HEMATOCRIT 30.8 % (36.0-47.0); HEMOGLOBIN 10.2 g/dL (12.0-15.5); HGB HCT DIFFERENCE -0.2; MEAN CORPUSCULAR HEMOGLOBIN 30.4 pg (27.0-33.4); MEAN CORPUSCULAR HGB CONC 33.3 g/dL (32.0-36.0); MEAN CORPUSCULAR VOLUME 91 fl (80-97); RED BLOOD COUNT 3.37 10^6/uL (3.72-5.28); RED CELL DISTRIBUTION WIDTH 13.5 % (11.5-14.0); WHITE BLOOD COUNT 4.4 10^3/uL (4.0-10.5)
[2016-09-22 06:04] LABS: ANION GAP 12 (5-19); BLOOD UREA NITROGEN 78 mg/dL (7-20); CALCIUM 8.9 mg/dL (8.4-10.2); CARBON DIOXIDE 28 mmol/L (22-30); CHLORIDE 97 mmol/L (98-107); CREATININE RESULT 3.72 mg/dL (0.52-1.25); GLUCOSE 109 mg/dL (75-110); MAGNESIUM 1.9 mg/dL (1.6-2.3); POTASSIUM 3.4 mmol/L (3.6-5.0); SODIUM 137.3 mmol/L (137-145)
[2016-09-22 06:26] LABS: BASOPHILS % (MANUAL) 0 % (0-2); EOSINOPHILS % (MANUAL) 4 % (0-6); LYMPHOCYTES % (MANUAL) 15 % (13-45); TOTAL CELLS COUNTED 100
[2016-09-22 06:27] LABS: RBC MORPHOLOGY COMMENT NORMO-CYTIC/CHROMIC; TOXIC GRANULATION SLIGHT
--- NOTE | 2016-09-22 09:19 | PDOC PROGRESS REPORT ---
Subjective Progress Note for:: 09/22/16 Subjective:: The patient has been extubated. She tries to talk to me from having difficulty understanding what she is saying. She has been on BiPAP overnight. Physical Exam Vital Signs: Temp Pulse Resp BP Pulse Ox 96.5 F L 82 16 141/67 H 97 09/22/16 07:45 09/22/16 08:56 09/22/16 08:50 09/22/16 07:45 09/22/16 08:50 Intake & Output 09/21/16 09/22/16 09/23/16 06:59 06:59 06:59 Intake Total 1409 908 Output Total 2040 4985 150 Balance -011 -1267 -150 Weight 132.9 kg 132.1 kg Results Laboratory Results: 09/22/16 05:25 09/22/16 05:25 09/21/16 09/21/16 09/22/16 17:40 19:40 05:25 WBC 4.4 RBC 3.37 L Hgb 10.2 L Hct 30.8 L MCV 91 MCH 30.4 MCHC 33.3 RDW 13.5 Plt Count 120 L Seg Neutrophils % Not Reportable Lymphocytes % Not Reportable Monocytes % Not Reportable Eosinophils % Not Reportable Basophils % Not Reportable Absolute Neutrophils Not Reportable Absolute Lymphocytes Not Reportable Absolute Monocytes Not Reportable Absolute Eosinophils Not Reportable Absolute Basophils Not Reportable Carbonic Acid 1.61 H 1.36 H HCO3/H2CO3 Ratio 17:1 20:1 ABG pH 7.34 L 7.41 ABG pCO2 53.5 H 45.3 H ABG pO2 67.3 L 77.8 L ABG HCO3 28.4 H 27.9 H ABG O2 Saturation 92.1 L 95.5 ABG Base Excess 1.6 2.8 FiO2 5 L 50% Sodium Potassium Chloride Carbon Dioxide Anion Gap BUN Creatinine Est GFR ( Amer) Est GFR (Non-Af Amer) Glucose Calcium Magnesium 09/22/16 09/22/16 05:25 05:25 WBC RBC Hgb Hct MCV MCH MCHC RDW Plt Count Seg Neutrophils % Lymphocytes % Monocytes % Eosinophils % Basophils % Absolute Neutrophils Absolute Lymphocytes Absolute Monocytes Absolute Eosinophils Absolute Basophils Carbonic Acid 1.41 H HCO3/H2CO3 Ratio 19:1 ABG pH 7.39 ABG pCO2 46.8 H ABG pO2 74.3 L ABG HCO3 27.4 H ABG O2 Saturation 94.7 ABG Base Excess 1.9 FiO2 50% Sodium 137.3 Potassium 3.4 L Chloride 97 L Carbon Dioxide 28 Anion Gap 12 BUN 78 H Creatinine 3.72 H Est GFR ( Amer) 14 L Est GFR (Non-Af Amer) 12 L Glucose 109 Calcium 8.9 Magnesium 1.9 Impressions: Chest X-Ray 09/22/16 06:00 IMPRESSION: 1. Interval removal of the endotracheal nasogastric tubes. Right subclavian catheter is unchanged. 2. Persistent dense opacification the retrocardiac region on the left likely representing a combination of effusion and atelectasis. Mild opacification noted in the right lung base likely represent atelectasis, edema, or infiltrate. Mild central pulmonary vascular congestion. Overall appearance is not significantly changed the prior study. Assessment & Plan - Diagnosis (1) Acute respiratory failure with hypoxia and hypercarbia Is this a current diagnosis for this admission?: Yes (2) Acute on chronic renal failure Is this a current diagnosis for this admission?: YesPlan: Stage IV chronic renal failure. Nephrology is following. (3) Diabetes mellitus type 2 in obese Is this a current diagnosis for this admission?: YesPlan: Continue with sliding scale insulin. (4) Escherichia coli urinary tract infection Is this a current diagnosis for this admission?: YesPlan: Continue with imipenem. Today is day #8 of antibiotics we'll plan a total of 10 days. (5) Hyperkalemia Is this a current diagnosis for this admission?: YesPlan: Resolved. (6) Pneumonia Qualifiers: Pneumonia type: aspiration pneumonia Laterality: unspecified laterality Lung location: unspecified part of lung Is this a current diagnosis for this admission?: YesPlan: Continue with imipenem. (7) Acute encephalopathy Is this a current diagnosis for this admission?: YesPlan: Most likely secondary to the underlying infection. Patient is more alert today but is still having difficulty expressing herself. (8) Anemia Qualifiers: Anemia type: unspecified type Qualified Code(s): D64.9 - Anemia, unspecified Is this a current diagnosis for this admission?: YesPlan: Hemoglobin has remained stable. (9) Congestive heart failure Qualifiers: Congestive heart failure type: unspecified congestive heart failure type Congestive heart failure chronicity: chronic Qualified Code(s): I50.9 - Heart failure, unspecified Is this a current diagnosis for this admission?: YesPlan: Patient is getting IV Lasix and is diuresing. (10) Hypertension Qualifiers: Hypertension type: essential hypertension Qualified Code(s): I10 - Essential (primary) hypertension Is this a current diagnosis for this admission?: YesPlan: Blood pressure is under good control. (11) Obesity Qualifiers: Obesity severity: unspecified obesity severity Is this a current diagnosis for this admission?: Yes - Time Time Spent with patient: 25-34 minutes - Inpatient Certification Medical Necessity: Need Close Monitoring Due to Risk of Patient Decompensation, Need for IV Antibiotics - Plan Summary Plan Summary: If she continues to improve, hopefully she can move out of the intensive care unit tomorrow.
[2016-09-22] MEDS: IMIPENEM/CILASTATIN SODIUM 500 MG in NORMAL SALINE 100 ML IV SCH ×2 (09:55→18:25)
[2016-09-22] MEDS: FUROSEMIDE INJ/PF 20 MG/2 ML SDV IV SCH ×2 (09:55→21:10)
[2016-09-22] MEDS: HEPARIN SOD (PORCINE) 5,000 UNIT/ML 1 ML SYRINGE SUBCUT SCH ×2 (09:56→21:11)
[2016-09-22] MEDS: COLLAGENASE CLOSTRIDIUM HIST. OINT 30 GM TP SCH (09:58)
[2016-09-22] MEDS: ASCORBIC ACID 500 MG TABLET NG SCH (09:58)
[2016-09-22] MEDS: AMIODARONE HCL 200 MG TABLET NG SCH (09:58)
[2016-09-22] MEDS: ZINC SULFATE 220 MG CAPSULE NG SCH (09:58)
[2016-09-22] MEDS: ASPIRIN 81 MG TABLET, CHEWABLE NG SCH (09:58)
[2016-09-22] MEDS: MORPHINE SULFATE 10 MG/ML INJ IV PRN (19:52)
[2016-09-23] MEDS: IMIPENEM/CILASTATIN SODIUM 500 MG in NORMAL SALINE 100 ML IV SCH ×3 (02:32→17:35)
[2016-09-23] MEDS: METOLAZONE 5 MG TABLET NG SCH ×3 (02:33→17:36)
[2016-09-23] MEDS: NORMAL SALINE 1000 ML 1,000 ML IV PRN (02:38)
[2016-09-23 04:58] LABS: ABSOLUTE EOSINOPHILS # (AUTO) 0.2 10^3/uL (0.0-0.6); ABSOLUTE LYMPHOCYTES (AUTO) 0.7 10^3/uL (0.5-4.7); ABSOLUTE MONOCYTES (AUTO) 0.3 10^3/uL (0.1-1.4); BASOPHILS % (AUTO) 0.9 % (0-2); EOSINOPHILS % (AUTO) 6.3 % (0-6); HEMATOCRIT 27.3 % (36.0-47.0); HEMOGLOBIN 9.1 g/dL (12.0-15.5); LYMPHOCYTES % (AUTO) 21.8 % (13-45); MEAN CORPUSCULAR HEMOGLOBIN 30.4 pg (27.0-33.4); MEAN CORPUSCULAR HGB CONC 33.4 g/dL (32.0-36.0); MEAN CORPUSCULAR VOLUME 91 fl (80-97); MONOCYTES % (AUTO) 10.1 % (3-13); RED BLOOD COUNT 2.99 10^6/uL (3.72-5.28); RED CELL DISTRIBUTION WIDTH 13.2 % (11.5-14.0); SEGMENTED NEUTROPHILS % (AUTO) 60.9 % (42-78); WHITE BLOOD COUNT 3.3 10^3/uL (4.0-10.5)
[2016-09-23 05:14] LABS: ANION GAP 13 (5-19); BLOOD UREA NITROGEN 76 mg/dL (7-20); CALCIUM 8.6 mg/dL (8.4-10.2); CARBON DIOXIDE 25 mmol/L (22-30); CHLORIDE 100 mmol/L (98-107); CREATININE RESULT 3.28 mg/dL (0.52-1.25); GLUCOSE 74 mg/dL (75-110); MAGNESIUM 1.8 mg/dL (1.6-2.3); POTASSIUM 3.3 mmol/L (3.6-5.0); SODIUM 137.7 mmol/L (137-145)
[2016-09-23] MEDS: ISOSORB DINIT/HYDRALAZINE HCL 20-37.5 MG TABLET NG SCH ×3 (05:46→22:26)
[2016-09-23] MEDS ORDERED: POTASSIUM CHLORIDE 10 MEQ TABLET.SA PO ONE (06:25)
[2016-09-23] MEDS: POTASSI CL 20 MEQ/50 ML RIDER 20 MEQ/50 ML RTUPB IV SCH ×2 (07:04→09:12)
[2016-09-23] MEDS: AMIODARONE HCL 200 MG TABLET NG SCH (09:10)
[2016-09-23] MEDS: ZINC SULFATE 220 MG CAPSULE NG SCH (09:10)
[2016-09-23] MEDS: ASCORBIC ACID 500 MG TABLET NG SCH (09:10)
[2016-09-23] MEDS: FUROSEMIDE INJ/PF 20 MG/2 ML SDV IV SCH ×2 (09:10→22:28)
[2016-09-23] MEDS: ASPIRIN 81 MG TABLET, CHEWABLE NG SCH (09:10)
[2016-09-23] MEDS: HEPARIN SOD (PORCINE) 5,000 UNIT/ML 1 ML SYRINGE SUBCUT SCH ×2 (09:13→22:28)
[2016-09-23] MEDS: COLLAGENASE CLOSTRIDIUM HIST. OINT 30 GM TP SCH (09:17)
--- NOTE | 2016-09-23 11:06 | PDOC PROGRESS REPORT ---
Subjective Progress Note for:: 09/23/16 Subjective:: The patient is more alert today. She has done well overnight but has required BiPAP. Physical Exam Vital Signs: Temp Pulse Resp BP Pulse Ox 97.8 F 73 0 L 100/56 L 95 09/23/16 08:00 09/23/16 09:35 09/23/16 10:15 09/23/16 10:01 09/23/16 10:15 Intake & Output 09/22/16 09/23/16 09/24/16 06:59 06:59 06:59 Intake Total 908 883 Output Total 2175 1215 200 Balance -1267 -332 -200 Weight 132.1 kg 131.7 kg General appearance: PRESENT: no acute distress Eye exam: PRESENT: conjunctiva pink. ABSENT: scleral icterus Mouth exam: PRESENT: moist, tongue midline Neck exam: ABSENT: JVD Respiratory exam: PRESENT: clear to auscultation julia. ABSENT: rales, rhonchi, wheezes Cardiovascular exam: PRESENT: RRR. ABSENT: diastolic murmur, rubs, systolic murmur GI/Abdominal exam: PRESENT: normal bowel sounds, soft. ABSENT: distended, guarding, mass, organolmegaly, rebound, tenderness Extremities exam: PRESENT: pedal edema. ABSENT: calf tenderness, clubbing Neurological exam: PRESENT: awake, oriented to person, oriented to place Psychiatric exam: PRESENT: flat affect Skin exam: PRESENT: dry, intact, warm. ABSENT: cyanosis, rash Results Laboratory Results: 09/23/16 04:45 09/23/16 04:45 09/23/16 09/23/16 04:45 04:45 WBC 3.3 L RBC 2.99 L Hgb 9.1 L Hct 27.3 L MCV 91 MCH 30.4 MCHC 33.4 RDW 13.2 Plt Count 125 L Seg Neutrophils % 60.9 Lymphocytes % 21.8 Monocytes % 10.1 Eosinophils % 6.3 H Basophils % 0.9 Absolute Neutrophils 2.0 Absolute Lymphocytes 0.7 Absolute Monocytes 0.3 Absolute Eosinophils 0.2 Absolute Basophils 0.0 Sodium 137.7 Potassium 3.3 L Chloride 100 Carbon Dioxide 25 Anion Gap 13 BUN 76 H Creatinine 3.28 H Est GFR ( Amer) 16 L Est GFR (Non-Af Amer) 14 L Glucose 74 L Calcium 8.6 Magnesium 1.8 Impressions: Chest X-Ray 09/22/16 06:00 IMPRESSION: 1. Interval removal of the endotracheal nasogastric tubes. Right subclavian catheter is unchanged. 2. Persistent dense opacification the retrocardiac region on the left likely representing a combination of effusion and atelectasis. Mild opacification noted in the right lung base likely represent atelectasis, edema, or infiltrate. Mild central pulmonary vascular congestion. Overall appearance is not significantly changed the prior study. Assessment & Plan - Diagnosis (1) Acute respiratory failure with hypoxia and hypercarbia Is this a current diagnosis for this admission?: YesPlan: Patient has improved and is more alert today. She still has required BiPAP. We will transfer to the floor today. (2) Acute on chronic renal failure Is this a current diagnosis for this admission?: YesPlan: Stage IV chronic renal failure. Nephrology is following. (3) Diabetes mellitus type 2 in obese Is this a current diagnosis for this admission?: YesPlan: Continue with sliding scale insulin. (4) Escherichia coli urinary tract infection Is this a current diagnosis for this admission?: YesPlan: Continue with imipenem. Today is day #9 of antibiotics we'll plan a total of 10 days. (5) Hyperkalemia Is this a current diagnosis for this admission?: YesPlan: Resolved. (6) Pneumonia Qualifiers: Pneumonia type: aspiration pneumonia Laterality: unspecified laterality Lung location: unspecified part of lung Is this a current diagnosis for this admission?: YesPlan: Continue with imipenem. (7) Acute encephalopathy Is this a current diagnosis for this admission?: YesPlan: Most likely secondary to the underlying infection. Patient is more alert today. (8) Anemia Qualifiers: Anemia type: unspecified type Qualified Code(s): D64.9 - Anemia, unspecified Is this a current diagnosis for this admission?: YesPlan: Hemoglobin has remained stable. (9) Congestive heart failure Qualifiers: Congestive heart failure type: unspecified congestive heart failure type Congestive heart failure chronicity: chronic Qualified Code(s): I50.9 - Heart failure, unspecified Is this a current diagnosis for this admission?: YesPlan: Patient is getting IV Lasix (10) Hypertension Qualifiers: Hypertension type: essential hypertension Qualified Code(s): I10 - Essential (primary) hypertension Is this a current diagnosis for this admission?: YesPlan: Blood pressure is under good control. (11) Obesity Qualifiers: Obesity severity: unspecified obesity severity Is this a current diagnosis for this admission?: Yes - Time Time Spent with patient: 25-34 minutes - Inpatient Certification Medical Necessity: Need for IV Antibiotics - Plan Summary Plan Summary: Patient is improving and we will transfer to the [facility] today.
[2016-09-24] MEDS: METOLAZONE 5 MG TABLET NG SCH ×3 (01:13→17:28)
[2016-09-24] MEDS: IMIPENEM/CILASTATIN SODIUM 500 MG in NORMAL SALINE 100 ML IV SCH ×3 (01:30→17:28)
[2016-09-24 04:53] LABS: ABSOLUTE EOSINOPHILS # (AUTO) 0.2 10^3/uL (0.0-0.6); ABSOLUTE LYMPHOCYTES (AUTO) 0.6 10^3/uL (0.5-4.7); ABSOLUTE MONOCYTES (AUTO) 0.3 10^3/uL (0.1-1.4); ABSOLUTE NEUT (AUTO) 1.8 10^3/uL (1.7-8.2); BASOPHILS % (AUTO) 1.3 % (0-2); EOSINOPHILS % (AUTO) 5.6 % (0-6); HEMATOCRIT 26.2 % (36.0-47.0); HEMOGLOBIN 8.5 g/dL (12.0-15.5); HGB HCT DIFFERENCE -0.7; LYMPHOCYTES % (AUTO) 20.4 % (13-45); MEAN CORPUSCULAR HEMOGLOBIN 30.1 pg (27.0-33.4); MEAN CORPUSCULAR HGB CONC 32.6 g/dL (32.0-36.0); MEAN CORPUSCULAR VOLUME 92 fl (80-97); RED BLOOD COUNT 2.84 10^6/uL (3.72-5.28); RED CELL DISTRIBUTION WIDTH 13.4 % (11.5-14.0); SEGMENTED NEUTROPHILS % (AUTO) 61.7 % (42-78); WHITE BLOOD COUNT 2.9 10^3/uL (4.0-10.5)
[2016-09-24 05:15] LABS: ANION GAP 11 (5-19); BLOOD UREA NITROGEN 74 mg/dL (7-20); CALCIUM 8.7 mg/dL (8.4-10.2); CARBON DIOXIDE 27 mmol/L (22-30); CHLORIDE 104 mmol/L (98-107); GLUCOSE 73 mg/dL (75-110); POTASSIUM 3.4 mmol/L (3.6-5.0); SODIUM 141.6 mmol/L (137-145)
[2016-09-24] MEDS: ISOSORB DINIT/HYDRALAZINE HCL 20-37.5 MG TABLET NG SCH ×3 (05:33→22:15)
[2016-09-24] MEDS: HEPARIN SOD (PORCINE) 5,000 UNIT/ML 1 ML SYRINGE SUBCUT SCH ×2 (09:54→22:15)
--- NOTE | 2016-09-24 10:45 | PDOC PROGRESS REPORT ---
Subjective Progress Note for:: 09/24/16 Subjective:: 76-year-old female who has been a resident at [facility] who presented with acute encephalopathy felt to be secondary to a urinary tract infection. Patient also had been noted to have acute and chronic renal failure. The patient has grown out enterococcus from urine cultures. Today is day 10 of 10 for IV antibiotics of imipenem. She also is noted have a pneumonia. The patient during this hospitalization she required intubation and mechanical ventilation because of her decreased consciousness. Patient has improved and has been extubated and is doing well enough that we are going to start feeding again today. Physical Exam Vital Signs: Temp Pulse Resp BP Pulse Ox 98.9 F 79 18 107/57 L 97 09/24/16 05:36 09/23/16 22:00 09/24/16 06:02 09/24/16 06:02 09/24/16 06:02 Intake & Output 09/23/16 09/24/16 09/25/16 06:59 06:59 06:59 Intake Total 883 532 Output Total 1415 1300 Balance -532 -768 Weight 131.7 kg 132.3 kg General appearance: PRESENT: no acute distress Eye exam: PRESENT: conjunctiva pink. ABSENT: scleral icterus Mouth exam: PRESENT: moist, tongue midline Neck exam: ABSENT: JVD Respiratory exam: PRESENT: clear to auscultation julia. ABSENT: rales, rhonchi, wheezes GI/Abdominal exam: PRESENT: normal bowel sounds, soft. ABSENT: distended, guarding, mass, organolmegaly, rebound, tenderness Extremities exam: PRESENT: pedal edema - Trace pedal edema. ABSENT: calf tenderness, clubbing Neurological exam: PRESENT: alert, awake, oriented to person, oriented to place. ABSENT: oriented to time, oriented to situation Psychiatric exam: PRESENT: flat affect Skin exam: PRESENT: dry, intact, warm. ABSENT: cyanosis, rash Results Laboratory Results: 09/24/16 04:40 09/24/16 04:40 09/24/16 09/24/16 04:40 04:40 WBC 2.9 L RBC 2.84 L Hgb 8.5 L Hct 26.2 L MCV 92 MCH 30.1 MCHC 32.6 RDW 13.4 Plt Count 143 L Seg Neutrophils % 61.7 Lymphocytes % 20.4 Monocytes % 11.0 Eosinophils % 5.6 Basophils % 1.3 Absolute Neutrophils 1.8 Absolute Lymphocytes 0.6 Absolute Monocytes 0.3 Absolute Eosinophils 0.2 Absolute Basophils 0.0 Sodium 141.6 Potassium 3.4 L Chloride 104 Carbon Dioxide 27 Anion Gap 11 BUN 74 H Creatinine 3.60 H Est GFR ( Amer) 15 L Est GFR (Non-Af Amer) 12 L Glucose 73 L Calcium 8.7 Impressions: Chest X-Ray 09/22/16 06:00 IMPRESSION: 1. Interval removal of the endotracheal nasogastric tubes. Right subclavian catheter is unchanged. 2. Persistent dense opacification the retrocardiac region on the left likely representing a combination of effusion and atelectasis. Mild opacification noted in the right lung base likely represent atelectasis, edema, or infiltrate. Mild central pulmonary vascular congestion. Overall appearance is not significantly changed the prior study. Assessment & Plan - Diagnosis (1) Acute respiratory failure with hypoxia and hypercarbia Is this a current diagnosis for this admission?: YesPlan: She had respiratory failure secondary to acute encephalopathy and pneumonia. Patient has improved and is requiring the BiPAP intermittently. She has completed 10 day course of imipenem for her pneumonia. (2) Acute on chronic renal failure Is this a current diagnosis for this admission?: YesPlan: Stage IV chronic renal failure. Nephrology is following. The patient has been on IV Lasix and we will switch to by mouth Lasix for now. She also is on Zaroxolyn. (3) Diabetes mellitus type 2 in obese Is this a current diagnosis for this admission?: YesPlan: Continue with sliding scale insulin. (4) Escherichia coli urinary tract infection Is this a current diagnosis for this admission?: YesPlan: We'll finish today with imipenem. Today is day #10 of 10 of antibiotics. Will DC after today's dose. (5) Hyperkalemia Is this a current diagnosis for this admission?: YesPlan: Resolved. (6) Pneumonia Qualifiers: Pneumonia type: aspiration pneumonia Laterality: unspecified laterality Lung location: unspecified part of lung Is this a current diagnosis for this admission?: YesPlan: She has finished a 10 day course of imipenem (7) Acute encephalopathy Is this a current diagnosis for this admission?: YesPlan: Most likely secondary to the underlying infection. This continues to resolve (8) Anemia Qualifiers: Anemia type: unspecified type Qualified Code(s): D64.9 - Anemia, unspecified Is this a current diagnosis for this admission?: YesPlan: Hemoglobin has remained stable. Most likely is anemia of chronic disease given her chronic renal failure. (9) Congestive heart failure Qualifiers: Congestive heart failure type: unspecified congestive heart failure type Congestive heart failure chronicity: chronic Qualified Code(s): I50.9 - Heart failure, unspecified Is this a current diagnosis for this admission?: YesPlan: Patient is getting euvolemic. Will change to by mouth Lasix today. (10) Hypertension Qualifiers: Hypertension type: essential hypertension Qualified Code(s): I10 - Essential (primary) hypertension Is this a current diagnosis for this admission?: YesPlan: Blood pressure is under good control. (11) Obesity Qualifiers: Obesity severity: unspecified obesity severity Is this a current diagnosis for this admission?: Yes - Time Time Spent with patient: 25-34 minutes - Inpatient Certification Medical Necessity: Need Close Monitoring Due to Risk of Patient Decompensation - Plan Summary Plan Summary: Transfer orders were written for IMCU yesterday. Patient still the ICU but does not require ICU level care at this time. Will consult physical therapy to see if we can get her more and ventilatory other she was not mandatory prior to presentation. Speech therapy has evaluated the patient they have recommended starting a diet.
[2016-09-24] MEDS: ZINC SULFATE 220 MG CAPSULE NG SCH (11:23)
[2016-09-24] MEDS: AMIODARONE HCL 200 MG TABLET NG SCH (11:24)
[2016-09-24] MEDS: ASPIRIN 81 MG TABLET, CHEWABLE NG SCH (11:26)
[2016-09-24] MEDS: ASCORBIC ACID 500 MG TABLET NG SCH (11:26)
[2016-09-24] MEDS: FUROSEMIDE 20 MG TABLET PO SCH ×2 (11:26→17:28)
[2016-09-24] MEDS: COLLAGENASE CLOSTRIDIUM HIST. OINT 30 GM TP SCH (11:28)
--- NOTE | 2016-09-24 18:42 | PDOC PROGRESS REPORT ---
Subjective Progress Note for:: 09/24/16 Subjective:: Seen in the ICU today. Patient is extubated and holding. She c/o painless diarrhea. No fever or chills. Discussions were done the treating nurse. Physical Exam Vital Signs: Temp Pulse Resp BP Pulse Ox 98.2 F 80 11 L 157/92 H 98 09/24/16 17:35 09/24/16 10:00 09/24/16 17:09 09/24/16 17:09 09/24/16 17:09 Intake & Output 09/23/16 09/24/16 09/25/16 06:59 06:59 06:59 Intake Total 883 532 271 Output Total 1415 1300 Balance -532 -768 271 Weight 131.7 kg 132.3 kg Respiratory exam: PRESENT: clear to auscultation julia. ABSENT: crackles, rales, rhonchi Cardiovascular exam: PRESENT: +S1, +S2, systolic murmur GI/Abdominal exam: PRESENT: soft. ABSENT: distended, firm, mass, renal bruit, tenderness Results Laboratory Results: 09/24/16 04:40 09/24/16 04:40 09/24/16 09/24/16 04:40 04:40 WBC 2.9 L RBC 2.84 L Hgb 8.5 L Hct 26.2 L MCV 92 MCH 30.1 MCHC 32.6 RDW 13.4 Plt Count 143 L Seg Neutrophils % 61.7 Lymphocytes % 20.4 Monocytes % 11.0 Eosinophils % 5.6 Basophils % 1.3 Absolute Neutrophils 1.8 Absolute Lymphocytes 0.6 Absolute Monocytes 0.3 Absolute Eosinophils 0.2 Absolute Basophils 0.0 Sodium 141.6 Potassium 3.4 L Chloride 104 Carbon Dioxide 27 Anion Gap 11 BUN 74 H Creatinine 3.60 H Est GFR ( Amer) 15 L Est GFR (Non-Af Amer) 12 L Glucose 73 L Calcium 8.7 Impressions: Chest X-Ray 09/22/16 06:00 IMPRESSION: 1. Interval removal of the endotracheal nasogastric tubes. Right subclavian catheter is unchanged. 2. Persistent dense opacification the retrocardiac region on the left likely representing a combination of effusion and atelectasis. Mild opacification noted in the right lung base likely represent atelectasis, edema, or infiltrate. Mild central pulmonary vascular congestion. Overall appearance is not significantly changed the prior study. Assessment & Plan - Diagnosis (1) Acute on chronic renal failure Is this a current diagnosis for this admission?: YesPlan: Stable. Nonoliguric. Continue present lines of management. No indications for renal replacements (2) Diabetes mellitus type 2 in obese Is this a current diagnosis for this admission?: YesPlan: Would need tight blood sugar control and would leave it to the hospitalist. (3) Hyperkalemia Is this a current diagnosis for this admission?: YesPlan: Stable. (4) Anemia Qualifiers: Anemia type: unspecified type Qualified Code(s): D64.9 - Anemia, unspecified Is this a current diagnosis for this admission?: YesPlan: Check iron studies and follow-up (5) Congestive heart failure Qualifiers: Congestive heart failure type: unspecified congestive heart failure type Congestive heart failure chronicity: chronic Qualified Code(s): I50.9 - Heart failure, unspecified Is this a current diagnosis for this admission?: YesPlan: Stable. See how she responds to weaning off and extubation.She has had a good diuresis to the current medications and hopefully she will hold steady. (6) Obesity Qualifiers: Obesity severity: unspecified obesity severity Is this a current diagnosis for this admission?: Yes (7) Escherichia coli urinary tract infection Is this a current diagnosis for this admission?: YesPlan: On antibiotics (8) Diarrhea Plan: check c diff.
[2016-09-25] MEDS: METOLAZONE 5 MG TABLET NG SCH (02:50)
[2016-09-25] MEDS: IMIPENEM/CILASTATIN SODIUM 500 MG in NORMAL SALINE 100 ML IV SCH (03:01)
[2016-09-25] MEDS: ISOSORB DINIT/HYDRALAZINE HCL 20-37.5 MG TABLET NG SCH ×2 (06:11→15:06)
[2016-09-25 07:21] LABS: HEMATOCRIT 26.3 % (36.0-47.0); HEMOGLOBIN 8.7 g/dL (12.0-15.5); HGB HCT DIFFERENCE -0.2; MEAN CORPUSCULAR HEMOGLOBIN 30.6 pg (27.0-33.4); MEAN CORPUSCULAR HGB CONC 33.2 g/dL (32.0-36.0); MEAN CORPUSCULAR VOLUME 92 fl (80-97); RED BLOOD COUNT 2.86 10^6/uL (3.72-5.28); RED CELL DISTRIBUTION WIDTH 13.1 % (11.5-14.0); WHITE BLOOD COUNT 3.1 10^3/uL (4.0-10.5)
[2016-09-25 07:39] LABS: ANION GAP 12 (5-19); BLOOD UREA NITROGEN 76 mg/dL (7-20); CARBON DIOXIDE 26 mmol/L (22-30); CHLORIDE 106 mmol/L (98-107); CREATININE RESULT 3.05 mg/dL (0.52-1.25); GLUCOSE 104 mg/dL (75-110); POTASSIUM 3.2 mmol/L (3.6-5.0); SODIUM 143.6 mmol/L (137-145)
[2016-09-25 07:52] LABS: BAND NEUTROPHILS % (MANUAL) 1 % (3-5); BASOPHILS % (MANUAL) 1 % (0-2); EOSINOPHILS % (MANUAL) 4 % (0-6); LYMPHOCYTES % (MANUAL) 24 % (13-45); TOTAL CELLS COUNTED 100
[2016-09-25 07:53] LABS: ANISOCYTOSIS SLIGHT; HYPOCHROMASIA SLIGHT; POLYCHROMASIA SLIGHT; ROULEAUX SLIGHT; TOXIC GRANULATION SLIGHT
[2016-09-25] MEDS ORDERED: POTASSIUM CHLORIDE 20 MEQ/15 ML UDCUP PO ONE ×2 (09:35→23:28)
--- NOTE | 2016-09-25 09:43 | PDOC PROGRESS REPORT ---
Subjective Progress Note for:: 09/25/16 Subjective:: Patient is now extubated. Reported some soft stools. No temperature spikes, respiratory distress, chills or fever. Patient has good urine output and currently negative balance. Tolerating extubation well. Physical Exam Vital Signs: Temp Pulse Resp BP Pulse Ox 98.6 F 85 26 H 133/70 H 98 09/25/16 08:00 09/25/16 08:00 09/25/16 09:10 09/25/16 09:10 09/25/16 09:10 Intake & Output 09/24/16 09/25/16 09/26/16 06:59 06:59 06:59 Intake Total 532 845 Output Total 1300 725 Balance -768 120 Weight 132.3 kg 132.2 kg General appearance: PRESENT: no acute distress, cooperative, morbidly obese Head exam: PRESENT: normocephalic Eye exam: PRESENT: EOMI Mouth exam: PRESENT: moist, neck supple Neck exam: ABSENT: JVD Respiratory exam: PRESENT: clear to auscultation julia - Anteriorly, decreased breath sounds - [place] Cardiovascular exam: PRESENT: irregular rhythm. ABSENT: gallop GI/Abdominal exam: PRESENT: normal bowel sounds, soft. ABSENT: tenderness Extremities exam: PRESENT: +1 edema Neurological exam: PRESENT: alert, awake Skin exam: PRESENT: dry, warm. ABSENT: cyanosis Results Laboratory Results: 09/25/16 06:58 09/25/16 06:58 09/25/16 09/25/16 06:58 06:58 WBC 3.1 L RBC 2.86 L Hgb 8.7 L Hct 26.3 L MCV 92 MCH 30.6 MCHC 33.2 RDW 13.1 Plt Count 153 Seg Neutrophils % Not Reportable Lymphocytes % Not Reportable Monocytes % Not Reportable Eosinophils % Not Reportable Basophils % Not Reportable Absolute Neutrophils Not Reportable Absolute Lymphocytes Not Reportable Absolute Monocytes Not Reportable Absolute Eosinophils Not Reportable Absolute Basophils Not Reportable Retic Count (auto) 1.40 Absolute Retic 0.040 Sodium 143.6 Potassium 3.2 L Chloride 106 Carbon Dioxide 26 Anion Gap 12 BUN 76 H Creatinine 3.05 H Est GFR ( Amer) 18 L Est GFR (Non-Af Amer) 15 L Glucose 104 Calcium 9.0 Iron 81.1 TIBC 192 L % Saturation 42 Ferritin 178.00 Vitamin B12 795.0 Folate 10.30 Impressions: Chest X-Ray 09/22/16 06:00 IMPRESSION: 1. Interval removal of the endotracheal nasogastric tubes. Right subclavian catheter is unchanged. 2. Persistent dense opacification the retrocardiac region on the left likely representing a combination of effusion and atelectasis. Mild opacification noted in the right lung base likely represent atelectasis, edema, or infiltrate. Mild central pulmonary vascular congestion. Overall appearance is not significantly changed the prior study. Assessment & Plan - Diagnosis (1) Acute respiratory failure with hypoxia and hypercarbia Is this a current diagnosis for this admission?: Yes (2) Pneumonia Qualifiers: Pneumonia type: aspiration pneumonia Laterality: unspecified laterality Lung location: unspecified part of lung Is this a current diagnosis for this admission?: Yes (3) Acute encephalopathy Is this a current diagnosis for this admission?: Yes (4) Hyperkalemia Is this a current diagnosis for this admission?: Yes (5) UTI (urinary tract infection) Qualifiers: Urinary tract infection type: site unspecified Is this a current diagnosis for this admission?: Yes (6) Anemia Qualifiers: Anemia type: unspecified type Qualified Code(s): D64.9 - Anemia, unspecified Is this a current diagnosis for this admission?: Yes (7) Acute worsening of stage 4 chronic kidney disease Is this a current diagnosis for this admission?: Yes (8) Congestive heart failure Qualifiers: Congestive heart failure type: unspecified congestive heart failure type Congestive heart failure chronicity: chronic Qualified Code(s): I50.9 - Heart failure, unspecified Is this a current diagnosis for this admission?: Yes (9) Hypertension Qualifiers: Hypertension type: essential hypertension Qualified Code(s): I10 - Essential (primary) hypertension Is this a current diagnosis for this admission?: Yes (10) Obesity Qualifiers: Obesity severity: unspecified obesity severity Is this a current diagnosis for this admission?: Yes (11) Diabetes mellitus type 2 in obese Is this a current diagnosis for this admission?: Yes (12) History of stroke Is this a current diagnosis for this admission?: Yes - Time Time Spent with patient: 25-34 minutes - Plan Summary Plan Summary: Patient continues to improve and is now extubated. We will transfer to telemetry floor. Out of bed with physical therapy. We will discontinue antibiotics. Begin Lactobacillus. Stool for Clostridium difficile toxin was negative. Replace electrolytes.
[2016-09-25] MEDS ORDERED: METOLAZONE 5 MG TABLET NG SCH ×2 (09:45→10:00)
[2016-09-25] MEDS: HEPARIN SOD (PORCINE) 5,000 UNIT/ML 1 ML SYRINGE SUBCUT SCH ×2 (10:45→22:36)
[2016-09-25] MEDS: LACTOBACILLUS ACIDOPHILUS 250 MG TAB PO SCH ×2 (10:47→17:34)
[2016-09-25] MEDS: ASCORBIC ACID 500 MG TABLET NG SCH (10:48)
[2016-09-25] MEDS: FUROSEMIDE 20 MG TABLET PO SCH ×2 (10:48→17:34)
[2016-09-25] MEDS: ASPIRIN 81 MG TABLET, CHEWABLE NG SCH (10:49)
[2016-09-25] MEDS: COLLAGENASE CLOSTRIDIUM HIST. OINT 30 GM TP SCH (10:49)
[2016-09-25] MEDS: ZINC SULFATE 220 MG CAPSULE NG SCH (10:49)
[2016-09-25] MEDS: AMIODARONE HCL 200 MG TABLET NG SCH (10:49)
[2016-09-25] MEDS ORDERED: DEXTROSE 40% GEL 15 GM TUBE PO PRN (15:19)
[2016-09-25] MEDS ORDERED: METOLAZONE 5 MG TABLET PO SCH (22:00)
[2016-09-25 22:21] LABS: ANION GAP 8 (5-19); BLOOD UREA NITROGEN 74 mg/dL (7-20); CALCIUM 9.1 mg/dL (8.4-10.2); CARBON DIOXIDE 30 mmol/L (22-30); CHLORIDE 105 mmol/L (98-107); CREATININE RESULT 3.19 mg/dL (0.52-1.25); GLUCOSE 131 mg/dL (75-110); MAGNESIUM 1.8 mg/dL (1.6-2.3); POTASSIUM 3.5 mmol/L (3.6-5.0); SODIUM 143.4 mmol/L (137-145)
[2016-09-25] MEDS: ISOSORB DINIT/HYDRALAZINE HCL 20-37.5 MG TABLET PO SCH (22:39)
--- NOTE | 2016-09-25 22:45 | EKG REPORT ---
SEVERITY:- ABNORMAL ECG - ATRIAL-SENSED VENTRICULAR-PACED COMPLEXES : Confirmed by: Kayla Roberts 25-Sep-2016 22:44:10
[2016-09-25 23:12] LABS: CREATINE KINASE MB 0.63 ng/mL (<4.55); TROPONIN I 0.023 ng/mL
[2016-09-26 04:07] LABS: ANION GAP 11 (5-19); BLOOD UREA NITROGEN 73 mg/dL (7-20); CALCIUM 8.9 mg/dL (8.4-10.2); CARBON DIOXIDE 26 mmol/L (22-30); CHLORIDE 106 mmol/L (98-107); CREATININE RESULT 3.14 mg/dL (0.52-1.25); GLUCOSE 124 mg/dL (75-110); POTASSIUM 3.7 mmol/L (3.6-5.0); SODIUM 143.4 mmol/L (137-145)
[2016-09-26] MEDS: ISOSORB DINIT/HYDRALAZINE HCL 20-37.5 MG TABLET PO SCH ×3 (05:21→22:11)
--- NOTE | 2016-09-26 09:23 | PDOC PROGRESS REPORT ---
Subjective Progress Note for:: 09/26/16 Subjective:: Reported some soft stools but no diarrhea. No temperature spikes, respiratory distress, chills or fever. Patient has good urine output and currently still with a negative balance. Tolerating extubation well. Had episodes of nonsustained V. tach last night and central line was pulled out. Physical Exam Vital Signs: Temp Pulse Resp BP Pulse Ox 98.0 F 76 20 117/63 98 09/26/16 08:00 09/26/16 08:25 09/26/16 08:00 09/26/16 08:00 09/26/16 08:00 Intake & Output 09/25/16 09/26/16 09/27/16 06:59 06:59 06:59 Intake Total 845 180 Output Total 725 1450 60 Balance 120 -1270 -60 Weight 132.2 kg 129.5 kg General appearance: PRESENT: no acute distress, cooperative, morbidly obese Head exam: PRESENT: normocephalic Eye exam: PRESENT: EOMI Mouth exam: PRESENT: moist, neck supple Neck exam: ABSENT: JVD Respiratory exam: PRESENT: clear to auscultation julia. ABSENT: rhonchi, wheezes Cardiovascular exam: PRESENT: irregular rhythm. ABSENT: gallop GI/Abdominal exam: PRESENT: hypoactive bowel sounds, soft. ABSENT: tenderness Extremities exam: PRESENT: +1 edema - Better Neurological exam: PRESENT: alert, awake, oriented to situation Skin exam: PRESENT: dry, warm. ABSENT: cyanosis Results Laboratory Results: 09/25/16 06:58 09/26/16 03:46 09/25/16 09/25/16 09/26/16 06:58 22:00 03:46 Sodium 143.4 143.4 Potassium 3.5 L 3.7 Chloride 105 106 Carbon Dioxide 30 26 Anion Gap 8 11 BUN 74 H 73 H Creatinine 3.19 H 3.14 H Est GFR ( Amer) 17 L 17 L Est GFR (Non-Af Amer) 14 L 14 L Glucose 131 H 124 H Calcium 9.1 8.9 Magnesium 1.8 Transferrin 150 L 09/26/16 03:46 Sodium Potassium Chloride Carbon Dioxide Anion Gap BUN Creatinine Est GFR ( Amer) Est GFR (Non-Af Amer) Glucose Calcium Magnesium 1.9 Transferrin 09/25/16 09/25/16 22:35 22:35 Creatine Kinase < 20 L CK-MB (CK-2) 0.63 Troponin I 0.023 Impressions: Chest X-Ray 09/22/16 06:00 IMPRESSION: 1. Interval removal of the endotracheal nasogastric tubes. Right subclavian catheter is unchanged. 2. Persistent dense opacification the retrocardiac region on the left likely representing a combination of effusion and atelectasis. Mild opacification noted in the right lung base likely represent atelectasis, edema, or infiltrate. Mild central pulmonary vascular congestion. Overall appearance is not significantly changed the prior study. Assessment & Plan - Diagnosis (1) Acute respiratory failure with hypoxia and hypercarbia Is this a current diagnosis for this admission?: Yes (2) Pneumonia Qualifiers: Pneumonia type: aspiration pneumonia Laterality: unspecified laterality Lung location: unspecified part of lung Is this a current diagnosis for this admission?: Yes (3) Acute encephalopathy Is this a current diagnosis for this admission?: Yes (4) Hyperkalemia Is this a current diagnosis for this admission?: Yes (5) UTI (urinary tract infection) Qualifiers: Urinary tract infection type: site unspecified Is this a current diagnosis for this admission?: Yes (6) Anemia Qualifiers: Anemia type: unspecified type Qualified Code(s): D64.9 - Anemia, unspecified Is this a current diagnosis for this admission?: Yes (7) Acute worsening of stage 4 chronic kidney disease Is this a current diagnosis for this admission?: Yes (8) Congestive heart failure Qualifiers: Congestive heart failure type: unspecified congestive heart failure type Congestive heart failure chronicity: chronic Qualified Code(s): I50.9 - Heart failure, unspecified Is this a current diagnosis for this admission?: Yes (9) Hypertension Qualifiers: Hypertension type: essential hypertension Qualified Code(s): I10 - Essential (primary) hypertension Is this a current diagnosis for this admission?: Yes (10) Obesity Qualifiers: Obesity severity: unspecified obesity severity Is this a current diagnosis for this admission?: Yes (11) Diabetes mellitus type 2 in obese Is this a current diagnosis for this admission?: Yes (12) History of stroke Is this a current diagnosis for this admission?: Yes - Time Time Spent with patient: 25-34 minutes - Plan Summary Plan Summary: We are going to give extra potassium to bring it up to 4, extra magnesium dose to bring it up to 2 and recheck levels in the morning. We will consult engraver to return back to rehabilitation. Discontinue Zaroxolyn, and increase the Lasix dose. Continue supportive care.
[2016-09-26] MEDS: ZINC SULFATE 220 MG CAPSULE PO SCH (09:25)
[2016-09-26] MEDS: LACTOBACILLUS ACIDOPHILUS 250 MG TAB PO SCH ×2 (09:26→18:18)
[2016-09-26] MEDS: ASPIRIN 81 MG TABLET, CHEWABLE PO SCH (09:26)
[2016-09-26] MEDS: ASCORBIC ACID 500 MG TABLET PO SCH (09:26)
[2016-09-26] MEDS: AMIODARONE HCL 200 MG TABLET PO SCH (09:27)
[2016-09-26] MEDS: HEPARIN SOD (PORCINE) 5,000 UNIT/ML 1 ML SYRINGE SUBCUT SCH ×2 (09:27→22:11)
[2016-09-26] MEDS: FUROSEMIDE 20 MG TABLET PO SCH ×2 (09:40→18:18)
[2016-09-26] MEDS: COLLAGENASE CLOSTRIDIUM HIST. OINT 30 GM TP SCH (09:41)
[2016-09-26] MEDS ORDERED: POTASSIUM CHLORIDE 20 MEQ/15 ML UDCUP PO ONE (10:00)
[2016-09-26] MEDS ORDERED: MAGNESIUM OXIDE 400 MG TABLET PO ONE (10:00)
[2016-09-26 16:40] LABS: ALBUMIN 2 2.6 g/dL (2.9-4.4); ALPHA-1-GLOBULIN 2 0.2 g/dL (0.0-0.4); GAMMA GLOBULIN 0.9 g/dL (0.4-1.8); PROTEIN TOTAL SERUM 5.1 g/dL (6.0-8.5)
[2016-09-27 05:48] LABS: ANION GAP 9 (5-19); BLOOD UREA NITROGEN 65 mg/dL (7-20); CALCIUM 9.5 mg/dL (8.4-10.2); CARBON DIOXIDE 27 mmol/L (22-30); CHLORIDE 107 mmol/L (98-107); CREATININE RESULT 2.94 mg/dL (0.52-1.25); GLUCOSE 114 mg/dL (75-110); MAGNESIUM 1.9 mg/dL (1.6-2.3); POTASSIUM 3.7 mmol/L (3.6-5.0); SODIUM 143.3 mmol/L (137-145)
[2016-09-27] MEDS: ISOSORB DINIT/HYDRALAZINE HCL 20-37.5 MG TABLET PO SCH ×3 (06:30→21:42)
[2016-09-27] MEDS: AMIODARONE HCL 200 MG TABLET PO SCH (09:49)
[2016-09-27] MEDS: ASCORBIC ACID 500 MG TABLET PO SCH (09:49)
[2016-09-27] MEDS: ASPIRIN 81 MG TABLET, CHEWABLE PO SCH (09:49)
[2016-09-27] MEDS: LACTOBACILLUS ACIDOPHILUS 250 MG TAB PO SCH ×2 (09:49→17:26)
[2016-09-27] MEDS: FUROSEMIDE 20 MG TABLET PO SCH ×2 (09:49→17:26)
[2016-09-27] MEDS: COLLAGENASE CLOSTRIDIUM HIST. OINT 30 GM TP SCH (09:59)
[2016-09-27] MEDS: HEPARIN SOD (PORCINE) 5,000 UNIT/ML 1 ML SYRINGE SUBCUT SCH ×2 (09:59→21:42)
--- NOTE | 2016-09-27 11:35 | PDOC PROGRESS REPORT ---
Subjective Progress Note for:: 09/27/16 Subjective:: Patient reports just doing well and fine without any acute problems. No PND or orthopnea. No chest pain or shortness of breath. No chills or fever. Not on Wayne catheter at home. Physical Exam Vital Signs: Temp Pulse Resp BP Pulse Ox 98.0 F 82 20 139/66 H 97 09/27/16 08:08 09/27/16 08:08 09/27/16 08:08 09/27/16 08:08 09/27/16 08:28 Intake & Output 09/26/16 09/27/16 09/28/16 06:59 06:59 06:59 Intake Total 180 775 Output Total 1450 780 Balance -1270 -5 Weight 129.5 kg 130.2 kg General appearance: PRESENT: no acute distress, morbidly obese Head exam: PRESENT: normocephalic Eye exam: PRESENT: EOMI Mouth exam: PRESENT: moist, neck supple Neck exam: ABSENT: JVD Respiratory exam: PRESENT: clear to auscultation julia - Anteriorly, unlabored. ABSENT: crackles, wheezes Cardiovascular exam: PRESENT: RRR. ABSENT: gallop GI/Abdominal exam: PRESENT: soft. ABSENT: tenderness Extremities exam: PRESENT: +1 edema Neurological exam: PRESENT: alert, awake, oriented to situation Skin exam: PRESENT: dry, warm. ABSENT: cyanosis Results Laboratory Results: 09/25/16 06:58 09/27/16 05:18 09/25/16 09/27/16 06:58 05:18 Sodium 143.3 Potassium 3.7 Chloride 107 Carbon Dioxide 27 Anion Gap 9 BUN 65 H Creatinine 2.94 H Est GFR ( Amer) 19 L Est GFR (Non-Af Amer) 15 L Glucose 114 H Calcium 9.5 Magnesium 1.9 Total Protein 5.1 L Albumin 2.6 L 09/25/16 09/25/16 22:35 22:35 Creatine Kinase < 20 L CK-MB (CK-2) 0.63 Troponin I 0.023 Impressions: Chest X-Ray 09/22/16 06:00 IMPRESSION: 1. Interval removal of the endotracheal nasogastric tubes. Right subclavian catheter is unchanged. 2. Persistent dense opacification the retrocardiac region on the left likely representing a combination of effusion and atelectasis. Mild opacification noted in the right lung base likely represent atelectasis, edema, or infiltrate. Mild central pulmonary vascular congestion. Overall appearance is not significantly changed the prior study. Assessment & Plan - Diagnosis (1) Acute respiratory failure with hypoxia and hypercarbia Is this a current diagnosis for this admission?: Yes (2) Pneumonia Qualifiers: Pneumonia type: aspiration pneumonia Laterality: unspecified laterality Lung location: unspecified part of lung Is this a current diagnosis for this admission?: Yes (3) Acute encephalopathy Is this a current diagnosis for this admission?: Yes (4) Hyperkalemia Is this a current diagnosis for this admission?: Yes (5) UTI (urinary tract infection) Qualifiers: Urinary tract infection type: site unspecified Is this a current diagnosis for this admission?: Yes (6) Anemia Qualifiers: Anemia type: unspecified type Qualified Code(s): D64.9 - Anemia, unspecified Is this a current diagnosis for this admission?: Yes (7) Acute worsening of stage 4 chronic kidney disease Is this a current diagnosis for this admission?: Yes (8) Congestive heart failure Qualifiers: Congestive heart failure type: unspecified congestive heart failure type Congestive heart failure chronicity: chronic Qualified Code(s): I50.9 - Heart failure, unspecified Is this a current diagnosis for this admission?: Yes (9) Hypertension Qualifiers: Hypertension type: essential hypertension Qualified Code(s): I10 - Essential (primary) hypertension Is this a current diagnosis for this admission?: Yes (10) Obesity Qualifiers: Obesity severity: unspecified obesity severity Is this a current diagnosis for this admission?: Yes (11) Diabetes mellitus type 2 in obese Is this a current diagnosis for this admission?: Yes (12) History of stroke Is this a current diagnosis for this admission?: Yes - Time Time Spent with patient: 15-24 minutes - Plan Summary Plan Summary: Continue physical therapy. Continue current diuretic dose. Creatinine continues to improve. We will recheck the level in the morning. Possible transfer back to rehabilitation in the morning. Discontinue Wayne catheter today.
[2016-09-27] MEDS: ZINC SULFATE 220 MG CAPSULE PO SCH (12:03)
[2016-09-27] MEDS: INSULIN LISPRO 100 UNIT/ML 3 ML VIAL SUBCUT PRN ×2 (12:04→17:26)
[2016-09-27] MEDS: ACETAMINOPHEN 325 MG TABLET PO PRN (17:26)
[2016-09-28] MEDS: ISOSORB DINIT/HYDRALAZINE HCL 20-37.5 MG TABLET PO SCH ×3 (06:09→22:38)
[2016-09-28] MEDS: COLLAGENASE CLOSTRIDIUM HIST. OINT 30 GM TP SCH (09:21)
[2016-09-28] MEDS: HEPARIN SOD (PORCINE) 5,000 UNIT/ML 1 ML SYRINGE SUBCUT SCH ×2 (09:29→22:38)
[2016-09-28] MEDS: ZINC SULFATE 220 MG CAPSULE PO SCH (09:30)
[2016-09-28] MEDS: ASCORBIC ACID 500 MG TABLET PO SCH (09:30)
[2016-09-28] MEDS: ASPIRIN 81 MG TABLET, CHEWABLE PO SCH (09:30)
[2016-09-28] MEDS: FUROSEMIDE 20 MG TABLET PO SCH ×2 (09:30→17:15)
[2016-09-28] MEDS: LACTOBACILLUS ACIDOPHILUS 250 MG TAB PO SCH ×2 (09:30→17:15)
[2016-09-28] MEDS: AMIODARONE HCL 200 MG TABLET PO SCH (09:30)
--- NOTE | 2016-09-28 15:12 | PDOC PROGRESS REPORT ---
Subjective Progress Note for:: 09/28/16 Subjective:: When the patient was asked whether she is doing fine she said she is okay. She voices no discomfort. She denies having any pain at all. Family however reports moaning in pain and discomfort. Staff reports that patient gets confused intermittently and family concern about confusion as well. Patient has been off narcotics for quite a while. No temperature spikes reported. No respiratory distress. He was tried on BiPAP last night for a confusion but it did not help. He keeps on pulling it out. Physical Exam Vital Signs: Temp Pulse Resp BP Pulse Ox 97.9 F 77 16 134/78 H 99 09/28/16 12:13 09/28/16 12:13 09/28/16 12:13 09/28/16 12:13 09/28/16 12:13 Intake & Output 09/27/16 09/28/16 09/29/16 06:59 06:59 06:59 Intake Total 775 1070 Output Total 780 250 Balance -5 820 Weight 130.2 kg 131.2 kg General appearance: PRESENT: morbidly obese Head exam: PRESENT: normocephalic Eye exam: PRESENT: EOMI Mouth exam: PRESENT: moist, neck supple Respiratory exam: PRESENT: rhonchi - few bilateral. ABSENT: wheezes Cardiovascular exam: PRESENT: RRR. ABSENT: gallop GI/Abdominal exam: PRESENT: hypoactive bowel sounds, soft. ABSENT: distended Extremities exam: PRESENT: other - Edema on both upper and lower extremity has significantly improved. Neurological exam: PRESENT: alert, awake Psychiatric exam: ABSENT: agitated Focused psych exam: ABSENT: restlessness Skin exam: PRESENT: dry, warm. ABSENT: cyanosis Results Laboratory Results: 09/25/16 09/25/16 22:35 22:35 Creatine Kinase < 20 L CK-MB (CK-2) 0.63 Troponin I 0.023 Impressions: Chest X-Ray 09/22/16 06:00 IMPRESSION: 1. Interval removal of the endotracheal nasogastric tubes. Right subclavian catheter is unchanged. 2. Persistent dense opacification the retrocardiac region on the left likely representing a combination of effusion and atelectasis. Mild opacification noted in the right lung base likely represent atelectasis, edema, or infiltrate. Mild central pulmonary vascular congestion. Overall appearance is not significantly changed the prior study. Assessment & Plan - Diagnosis (1) Acute respiratory failure with hypoxia and hypercarbia Is this a current diagnosis for this admission?: Yes (2) Pneumonia Qualifiers: Pneumonia type: aspiration pneumonia Laterality: unspecified laterality Lung location: unspecified part of lung Is this a current diagnosis for this admission?: Yes (3) Acute encephalopathy Is this a current diagnosis for this admission?: Yes (4) Hyperkalemia Is this a current diagnosis for this admission?: Yes (5) UTI (urinary tract infection) Qualifiers: Urinary tract infection type: site unspecified Is this a current diagnosis for this admission?: Yes (6) Anemia Qualifiers: Anemia type: unspecified type Qualified Code(s): D64.9 - Anemia, unspecified Is this a current diagnosis for this admission?: Yes (7) Acute worsening of stage 4 chronic kidney disease Is this a current diagnosis for this admission?: Yes (8) Congestive heart failure Qualifiers: Congestive heart failure type: unspecified congestive heart failure type Congestive heart failure chronicity: chronic Qualified Code(s): I50.9 - Heart failure, unspecified Is this a current diagnosis for this admission?: Yes (9) Hypertension Qualifiers: Hypertension type: essential hypertension Qualified Code(s): I10 - Essential (primary) hypertension Is this a current diagnosis for this admission?: Yes (10) Obesity Qualifiers: Obesity severity: unspecified obesity severity Is this a current diagnosis for this admission?: Yes (11) Diabetes mellitus type 2 in obese Is this a current diagnosis for this admission?: Yes (12) History of stroke Is this a current diagnosis for this admission?: Yes - Time Time Spent with patient: 25-34 minutes - Plan Summary Plan Summary: Family does not want patient to be transferred back to rehabilitation at this time. Still concerned about her confusion. We are going to obtain a B12 level , ammonia, ABG on current setting. We will culture the urine, obtain chest x- ray, obtain metabolic panel, and also WBC.
[2016-09-28 15:13] LABS: HEMATOCRIT 27.3 % (36.0-47.0); HEMOGLOBIN 9.1 g/dL (12.0-15.5); MEAN CORPUSCULAR HEMOGLOBIN 30.6 pg (27.0-33.4); MEAN CORPUSCULAR HGB CONC 33.3 g/dL (32.0-36.0); MEAN CORPUSCULAR VOLUME 92 fl (80-97); RED BLOOD COUNT 2.97 10^6/uL (3.72-5.28); RED CELL DISTRIBUTION WIDTH 13.3 % (11.5-14.0); WHITE BLOOD COUNT 3.2 10^3/uL (4.0-10.5)
[2016-09-28 15:27] LABS: ALANINE AMINOTRANSFERASE 22 U/L (9-52); ALBUMIN 2.7 g/dL (3.5-5.0); ALKALINE PHOSPHATASE 107 U/L (38-126); ANION GAP 9 (5-19); ASPARTATE AMINO TRANSFERASE 17 U/L (14-36); BILIRUBIN,TOTAL 0.6 mg/dL (0.2-1.3); BLOOD UREA NITROGEN 59 mg/dL (7-20); CALCIUM 9.2 mg/dL (8.4-10.2); CARBON DIOXIDE 28 mmol/L (22-30); CHLORIDE 105 mmol/L (98-107); CREATININE RESULT 2.98 mg/dL (0.52-1.25); GLUCOSE 133 mg/dL (75-110); POTASSIUM 3.7 mmol/L (3.6-5.0); SODIUM 141.7 mmol/L (137-145); TOTAL PROTEIN 5.6 g/dL (6.3-8.2)
[2016-09-28 15:56] LABS: BASOPHILS % (MANUAL) 0 % (0-2); EOSINOPHILS % (MANUAL) 2 % (0-6); LYMPHOCYTES % (MANUAL) 25 % (13-45); TOTAL CELLS COUNTED 100
[2016-09-28 15:57] LABS: TOXIC GRANULATION SLIGHT
[2016-09-28 16:08] LABS: THYROID STIMULATING HORMONE 2.64 uIU/mL (0.47-4.68)
[2016-09-28 17:19] LABS: ARTERIAL BLOOD BASE EXCESS 0.6 mmol/L
[2016-09-28] MEDS: ACETAMINOPHEN 325 MG TABLET PO PRN (22:38)
[2016-09-29] MEDS: ISOSORB DINIT/HYDRALAZINE HCL 20-37.5 MG TABLET PO SCH ×3 (05:42→22:01)
[2016-09-29] MEDS: LACTOBACILLUS ACIDOPHILUS 250 MG TAB PO SCH ×2 (11:29→18:11)
[2016-09-29] MEDS: ASCORBIC ACID 500 MG TABLET PO SCH (11:29)
[2016-09-29] MEDS: COLLAGENASE CLOSTRIDIUM HIST. OINT 30 GM TP SCH (11:29)
[2016-09-29] MEDS: AMIODARONE HCL 200 MG TABLET PO SCH (11:30)
[2016-09-29] MEDS: FUROSEMIDE 20 MG TABLET PO SCH ×2 (11:30→18:11)
[2016-09-29] MEDS: ASPIRIN 81 MG TABLET, CHEWABLE PO SCH (11:30)
[2016-09-29] MEDS: ZINC SULFATE 220 MG CAPSULE PO SCH (11:30)
[2016-09-29] MEDS: HEPARIN SOD (PORCINE) 5,000 UNIT/ML 1 ML SYRINGE SUBCUT SCH ×2 (11:30→22:01)
--- NOTE | 2016-09-29 13:25 | PDOC PROGRESS REPORT ---
Subjective Progress Note for:: 09/29/16 Subjective:: The patient remains to have confusion intermittently. No reported temperature spikes, respiratory distress, nausea or vomiting. The patient denies any pain although the family reports that the patient was having pain. Physical Exam Vital Signs: Temp Pulse Resp BP Pulse Ox 97.3 F 81 24 H 137/66 H 97 09/29/16 08:23 09/29/16 08:23 09/29/16 08:23 09/29/16 08:23 09/29/16 08:23 Intake & Output 09/28/16 09/29/16 09/30/16 06:59 06:59 07:59 Intake Total 1070 850 Output Total 250 Balance 820 850 Weight 131.2 kg 130.2 kg General appearance: PRESENT: no acute distress, cooperative, morbidly obese Head exam: PRESENT: normocephalic Eye exam: PRESENT: EOMI Mouth exam: PRESENT: moist, neck supple Neck exam: ABSENT: JVD Respiratory exam: PRESENT: clear to auscultation julia Cardiovascular exam: PRESENT: RRR. ABSENT: gallop GI/Abdominal exam: PRESENT: normal bowel sounds, soft Extremities exam: PRESENT: other - Upper extremity and lower extremity edema significantly improved, currently stable Neurological exam: PRESENT: alert, awake, other - Response to questions appropriately Psychiatric exam: PRESENT: anxious - Mildly. ABSENT: agitated Focused psych exam: ABSENT: restlessness Skin exam: PRESENT: dry, warm. ABSENT: cyanosis Results Laboratory Results: 09/28/16 14:50 09/28/16 14:50 09/28/16 09/28/16 09/28/16 14:50 14:50 14:50 WBC 3.2 L RBC 2.97 L Hgb 9.1 L Hct 27.3 L MCV 92 MCH 30.6 MCHC 33.3 RDW 13.3 Plt Count 153 Seg Neutrophils % Not Reportable Lymphocytes % Not Reportable Monocytes % Not Reportable Eosinophils % Not Reportable Basophils % Not Reportable Absolute Neutrophils Not Reportable Absolute Lymphocytes Not Reportable Absolute Monocytes Not Reportable Absolute Eosinophils Not Reportable Absolute Basophils Not Reportable Carbonic Acid HCO3/H2CO3 Ratio ABG pH ABG pCO2 ABG pO2 ABG HCO3 ABG O2 Saturation ABG Base Excess FiO2 Sodium 141.7 Potassium 3.7 Chloride 105 Carbon Dioxide 28 Anion Gap 9 BUN 59 H Creatinine 2.98 H Est GFR ( Amer) 18 L Est GFR (Non-Af Amer) 15 L Glucose 133 H Calcium 9.2 Total Bilirubin 0.6 AST 17 ALT 22 Alkaline Phosphatase 107 Ammonia 14.4 Total Protein 5.6 L Albumin 2.7 L Vitamin B12 851.0 TSH Free T4 09/28/16 09/28/16 14:50 16:58 WBC RBC Hgb Hct MCV MCH MCHC RDW Plt Count Seg Neutrophils % Lymphocytes % Monocytes % Eosinophils % Basophils % Absolute Neutrophils Absolute Lymphocytes Absolute Monocytes Absolute Eosinophils Absolute Basophils Carbonic Acid 1.44 H HCO3/H2CO3 Ratio 18:1 ABG pH 7.36 ABG pCO2 47.8 H ABG pO2 85.2 ABG HCO3 26.4 H ABG O2 Saturation 96.0 ABG Base Excess 0.6 FiO2 2L Sodium Potassium Chloride Carbon Dioxide Anion Gap BUN Creatinine Est GFR ( Amer) Est GFR (Non-Af Amer) Glucose Calcium Total Bilirubin AST ALT Alkaline Phosphatase Ammonia Total Protein Albumin Vitamin B12 TSH 2.64 Free T4 1.50 09/25/16 09/25/16 22:35 22:35 Creatine Kinase < 20 L CK-MB (CK-2) 0.63 Troponin I 0.023 Impressions: Head CT 09/28/16 00:00 IMPRESSION: MILD CHRONIC CHANGES OF ATROPHY AND MICROVASCULAR ISCHEMIA. NO ACUTE PROCESS. Chest X-Ray 09/28/16 14:24 IMPRESSION: NO ACUTE RADIOGRAPHIC FINDING IN THE CHEST. OVERALL IMPROVED APPEARANCE COMPARED TO THE PRIOR STUDY. Assessment & Plan - Diagnosis (1) Acute respiratory failure with hypoxia and hypercarbia Is this a current diagnosis for this admission?: Yes (2) Pneumonia Qualifiers: Pneumonia type: aspiration pneumonia Laterality: unspecified laterality Lung location: unspecified part of lung Is this a current diagnosis for this admission?: Yes (3) Acute encephalopathy Is this a current diagnosis for this admission?: Yes (4) Hyperkalemia Is this a current diagnosis for this admission?: Yes (5) UTI (urinary tract infection) Qualifiers: Urinary tract infection type: site unspecified Is this a current diagnosis for this admission?: Yes (6) Anemia Qualifiers: Anemia type: unspecified type Qualified Code(s): D64.9 - Anemia, unspecified Is this a current diagnosis for this admission?: Yes (7) Acute worsening of stage 4 chronic kidney disease Is this a current diagnosis for this admission?: Yes (8) Congestive heart failure Qualifiers: Congestive heart failure type: unspecified congestive heart failure type Congestive heart failure chronicity: chronic Qualified Code(s): I50.9 - Heart failure, unspecified Is this a current diagnosis for this admission?: Yes (9) Hypertension Qualifiers: Hypertension type: essential hypertension Qualified Code(s): I10 - Essential (primary) hypertension Is this a current diagnosis for this admission?: Yes (10) Obesity Qualifiers: Obesity severity: unspecified obesity severity Is this a current diagnosis for this admission?: Yes (11) Diabetes mellitus type 2 in obese Is this a current diagnosis for this admission?: Yes (12) History of stroke Is this a current diagnosis for this admission?: Yes - Time Time Spent with patient: 15-24 minutes - Plan Summary Plan Summary: Continue current medications and supportive care. Follow urine culture. If negative we will transfer to subacute rehabilitation on Saturday. I have discussed in length with the family that so far workup has been negative and has improved. Patient's confusion may be from underlying intensive care unit or hospital induced psychosis due to multiple admission and readmission and patient being in a subacute facility and has been far from home for quite a while.
[2016-09-30] MEDS: ACETAMINOPHEN 325 MG TABLET PO PRN ×2 (06:17→22:00)
[2016-09-30] MEDS: ISOSORB DINIT/HYDRALAZINE HCL 20-37.5 MG TABLET PO SCH ×3 (06:17→21:51)
[2016-09-30] MEDS: FUROSEMIDE 20 MG TABLET PO SCH ×2 (09:57→17:40)
[2016-09-30] MEDS: ASPIRIN 81 MG TABLET, CHEWABLE PO SCH (09:57)
[2016-09-30] MEDS: AMIODARONE HCL 200 MG TABLET PO SCH (09:57)
[2016-09-30] MEDS: LACTOBACILLUS ACIDOPHILUS 250 MG TAB PO SCH ×2 (09:57→17:40)
[2016-09-30] MEDS: ASCORBIC ACID 500 MG TABLET PO SCH (09:57)
[2016-09-30] MEDS: ZINC SULFATE 220 MG CAPSULE PO SCH (09:58)
[2016-09-30] MEDS: COLLAGENASE CLOSTRIDIUM HIST. OINT 30 GM TP SCH (09:58)
[2016-09-30] MEDS: HEPARIN SOD (PORCINE) 5,000 UNIT/ML 1 ML SYRINGE SUBCUT SCH ×2 (09:58→21:51)
[2016-09-30] MEDS: INSULIN LISPRO 100 UNIT/ML 3 ML VIAL SUBCUT PRN (12:16)
--- NOTE | 2016-09-30 15:28 | PDOC PROGRESS REPORT ---
Subjective Progress Note for:: 09/30/16 Subjective:: Patient remains with confusion. No reported temperature spikes, nausea or vomiting, respiratory distress, diarrhea. Patient again denies any complaints, no pain reported. Physical Exam Vital Signs: Temp Pulse Resp BP Pulse Ox 97.4 F 84 16 150/85 H 99 09/30/16 11:32 09/30/16 14:00 09/30/16 11:32 09/30/16 11:32 09/30/16 11:32 Intake & Output 09/29/16 09/30/16 10/01/16 05:59 06:59 06:59 Intake Total Balance Weight General appearance: PRESENT: morbidly obese Head exam: PRESENT: normocephalic Eye exam: PRESENT: EOMI Mouth exam: PRESENT: moist, neck supple Neck exam: ABSENT: JVD Respiratory exam: PRESENT: clear to auscultation julia - Anteriorly bilateral.. ABSENT: rhonchi, wheezes Cardiovascular exam: PRESENT: RRR. ABSENT: gallop GI/Abdominal exam: PRESENT: hypoactive bowel sounds, soft. ABSENT: distended - Obese, tenderness Extremities exam: PRESENT: other - Trace lower extremity edema Neurological exam: PRESENT: alert, awake Skin exam: PRESENT: dry, warm. ABSENT: cyanosis Results Laboratory Results: 09/28/16 14:50 09/28/16 14:50 09/28/16 16:30 Catheterized Urine Urine Culture - Final NO GROWTH 2 DAYS 09/25/16 09/25/16 22:35 22:35 Creatine Kinase < 20 L CK-MB (CK-2) 0.63 Troponin I 0.023 Impressions: Head CT 09/28/16 00:00 IMPRESSION: MILD CHRONIC CHANGES OF ATROPHY AND MICROVASCULAR ISCHEMIA. NO ACUTE PROCESS. Chest X-Ray 09/28/16 14:24 IMPRESSION: NO ACUTE RADIOGRAPHIC FINDING IN THE CHEST. OVERALL IMPROVED APPEARANCE COMPARED TO THE PRIOR STUDY. Assessment & Plan - Diagnosis (1) Acute respiratory failure with hypoxia and hypercarbia Is this a current diagnosis for this admission?: Yes (2) Pneumonia Qualifiers: Pneumonia type: aspiration pneumonia Laterality: unspecified laterality Lung location: unspecified part of lung Is this a current diagnosis for this admission?: Yes (3) Acute encephalopathy Is this a current diagnosis for this admission?: Yes (4) Hyperkalemia Is this a current diagnosis for this admission?: Yes (5) UTI (urinary tract infection) Qualifiers: Urinary tract infection type: site unspecified Is this a current diagnosis for this admission?: Yes (6) Anemia Qualifiers: Anemia type: unspecified type Qualified Code(s): D64.9 - Anemia, unspecified Is this a current diagnosis for this admission?: Yes (7) Acute worsening of stage 4 chronic kidney disease Is this a current diagnosis for this admission?: Yes (8) Congestive heart failure Qualifiers: Congestive heart failure type: unspecified congestive heart failure type Congestive heart failure chronicity: chronic Qualified Code(s): I50.9 - Heart failure, unspecified Is this a current diagnosis for this admission?: Yes (9) Hypertension Qualifiers: Hypertension type: essential hypertension Qualified Code(s): I10 - Essential (primary) hypertension Is this a current diagnosis for this admission?: Yes (10) Obesity Qualifiers: Obesity severity: unspecified obesity severity Is this a current diagnosis for this admission?: Yes (11) Diabetes mellitus type 2 in obese Is this a current diagnosis for this admission?: Yes (12) History of stroke Is this a current diagnosis for this admission?: Yes - Time Time Spent with patient: Less than 15 minutes - Plan Summary Plan Summary: Continue current medication and supportive care. Urine culture is final and it was negative. We will transferred back to rehabilitation in the morning.
[2016-10-01] MEDS: ISOSORB DINIT/HYDRALAZINE HCL 20-37.5 MG TABLET PO SCH (06:13)
[2016-10-01] MEDS: ZINC SULFATE 220 MG CAPSULE PO SCH (10:52)
[2016-10-01] MEDS: FUROSEMIDE 20 MG TABLET PO SCH (10:53)
[2016-10-01] MEDS: HEPARIN SOD (PORCINE) 5,000 UNIT/ML 1 ML SYRINGE SUBCUT SCH (10:53)
[2016-10-01] MEDS: ASCORBIC ACID 500 MG TABLET PO SCH (10:53)
[2016-10-01] MEDS: AMIODARONE HCL 200 MG TABLET PO SCH (10:53)
[2016-10-01] MEDS: LACTOBACILLUS ACIDOPHILUS 250 MG TAB PO SCH (10:53)
[2016-10-01] MEDS: ASPIRIN 81 MG TABLET, CHEWABLE PO SCH (10:53)
[2016-10-01] MEDS: COLLAGENASE CLOSTRIDIUM HIST. OINT 30 GM TP SCH (11:05)
--- NOTE | 2016-10-01 11:36 | PDOC TRANSFER SUMMARY ---
General - Admit/Disc Date/PCP Admission Date/Primary Care Provider: 09/12/16 08:08 Discharge Date: 10/01/16 - Discharge Diagnosis (1) Acute respiratory failure with hypoxia and hypercarbia Is this a current diagnosis for this admission?: Yes (2) Pneumonia Is this a current diagnosis for this admission?: Yes (3) Acute encephalopathy Is this a current diagnosis for this admission?: Yes (4) Hyperkalemia Is this a current diagnosis for this admission?: Yes (5) UTI (urinary tract infection) Is this a current diagnosis for this admission?: Yes (6) Anemia Is this a current diagnosis for this admission?: Yes (7) Acute worsening of stage 4 chronic kidney disease Is this a current diagnosis for this admission?: Yes (8) Congestive heart failure Is this a current diagnosis for this admission?: Yes (9) Hypertension Is this a current diagnosis for this admission?: Yes (10) Obesity Is this a current diagnosis for this admission?: Yes (11) Diabetes mellitus type 2 in obese Is this a current diagnosis for this admission?: Yes (12) History of stroke Is this a current diagnosis for this admission?: Yes - Additional Information Resuscitation Status: Full Code Discharge Diet: Cardiac - low-fat low-salt, Diabetic - no concentrated sweets, Other (Comments) - renal diet , soft mechanical with ground meats Discharge Activity: Activity As Tolerated, Balance Activity w/Rest, Slowly Increase Activity Home Medications: Amiodarone HCl 1 tab PO DAILY 09/04/16 Ascorbic Acid [Vitamin C 500 mg Tablet] 500 mg PO DAILY 09/04/16 Aspirin [Aspirin 81 mg Chewable Tablet] 81 mg PO DAILY 09/04/16 Atorvastatin Calcium [Lipitor 10 mg Tablet] 10 mg PO QHS 09/04/16 Collagenase Clostridium Hist. [Santyl Ointment 30 gm] 1 applic TP DAILY Cyanocobalamin (Vitamin B-12) [B-12] 1,000 mcg PO DAILY 09/04/16 Ergocalciferol (Vitamin D2) [Vitamin D2] 50,000 unit PO FR@1000 09/04/16 Ferrous Sulfate [Iron] 325 mg PO BID 09/04/16 Furosemide [Lasix] 40 mg PO QPM 09/04/16 Glucagon,Human Recombinant [Glucagon Emergency Kit] 1 mg IJ PRN PRN 09/04/16 Insulin Lispro [Humalog Insulin (Lispro) 100 unit/mL] 0 unit SUBCUT .SLD SCALE 09/04/16 Isosorb Dinit/Hydralazine HCl [Bidil 20-37.5 mg Tablet] 0.5 tab PO Q8 09/04/16 Ketoconazole [Nizoral] 1 applic TP BID 09/04/16 Metoprolol Tartrate [Lopressor 25 mg Tablet] 25 mg PO Q12 09/04/16 Multivitamin [Multivitamins] 1 each PO DAILY 09/04/16 Omeprazole 20 mg PO DAILY 09/04/16 Zinc Sulfate [Zinc-220 Capsule] 220 mg PO DAILY 09/04/16 Guaifenesin [Robitussin Syrup 200 mg/10 ml Ud Cup] 200 mg PO Q4HP PRN 09/05/16 Carvedilol [Coreg 3.125 mg Tablet] 6.25 mg PO Q12 tablet 10/01/16 History of Present Illness Admission Date/PCP: 09/12/16 08:08 Patient complains of: Altered mental status History of Present Illness: ANGELIKA SHAFFER is a 76 year old obese female, nonambulatory for "some time now,", along with stage IV chronic kidney disease, type II diabetes mellitus, congestive heart failure, hypertension, arthritis, and depression who presents to the emergency room for evaluation of above complaint, manifested by increasing somnolence. Patient has been discussed with emergency room physician who evaluated the patient. Patient is oriented only to the fact that she is in the hospital and is able to provide no history whatsoever in terms of acute or chronic events, review of systems, personal habits, family history, etc. No friends or family are present. Old inpatient records are reviewed. Currently denies pain. No further information available this point in time. Hospitalized on our service the through the of this month with final diagnoses including delirium, acute on chronic renal failure, for which she was seen by Dr. Peacock, congestive heart failure, and hyperkalemia. Copies of the history and physical and discharge summary have been reviewed.. [facility] and are reviewed. X-ray summary results are listed below, with full report(s) reviewed. . EKG reviewed. And compared to a tracing from the of this month. Social history/personal habits: Currently resides at [facility]. Never smoker. No further information available this point in time. Allergies/adverse reactions are listed in [facility] and are reviewed. Home medications are to be reconciled by nursing staff in [facility] from the medication administration record from [facility].. Home medications initially autopopulated into [facility] may not accurately reflect patient's true medications, dosages, and/or frequencies. REVIEW OF SYSTEMS: See history and present illness.No further information available this point in time. PHYSICAL EXAMINATION: Neither height nor weight are recorded on the chart. Temperature 97.4. Blood pressure 111/63. Pulse 61 and regular. 99% saturation on 2 L oxygen per nasal cannula. Respirations are 17 and unlabored. Obese otherwise well-developed though somewhat chronically ill appearing female who nevertheless appears perhaps a bit younger than her stated age. Slightly fatigued. Pleasant and cooperative, however. Mildly anxious, without agitation. Skin is warm and dry. No grossly obvious evidence of rash in areas of skin examined. No subcutaneous nodules palpated. Per nursing staff, stage II decubitus overlying her coccyx. Clean dry and intact opaque dressing overlying her right heel; this is left in place. ENT: Hearing grossly normal to normal conversation. Tongue midline on protrusion pink and slightly tacky. Eyes: No scleral icterus. Pupils equal and reactive to light at 4 mm. [place] conjunctivae. Neck is supple and nontender to gentle active range of motion and palpation. Midline trachea. No palpable thyroid nodule mass enlargement or tenderness. Lymphatic: No palpable cervical or clavicular nodes. Neck and lymphatic exams limited by patient body habitus. Psychiatric: Oriented only to the fact that she is in the hospital. Difficult to evaluate further due to her current mental status. Lungs: Auscultation reveals clear and equal breath sounds bilaterally. No use of accessory respiratory muscles. Cardiovascular: Heart regular rate and rhythm, without gallop murmur or rub. No carotid or abdominal aortic bruits. Very mild symmetric bilateral ankle and pedal edema. Faintly palpable dorsalis pedis pulses. Abdomen: soft, obese, nontender with positive bowel sounds. Unable to adequately evaluate abdomen for masses or organomegaly due to body habitus. Extremities: Feet are warm and dry. No calf tenderness to compression. No grossly obvious visual evidence of calf swelling. Gentle manipulation of lower extremities fails to reveal any obvious evidence of injury or instability to knees hips or ankles. Neurologic: Moves upper extremities grossly normally. Patellar reflexes absent. Absent Babinski. Light touch can't be determined due to her mental status. Dorsiflexion and plantarflexion of feet with minimal movement on either side.. Hospital Course Hospital Course: The patient was admitted to the telemetry. The patient was placed on supplemental oxygen. Likewise patient was started on intravenous fluids for renal failure. Creatinine was monitored. Patient was noted to have urinary tract infection and likewise started on antibiotics. Urine culture eventually grew enterococcus and Escherichia coli and antibiotic shifted as per culture results. The patient's condition however got worse. Mental status got worse and eventually respirations got worse. Patient developed pulmonary vascular congestion requiring BiPAP and eventually intubation. Patient likewise developed aspiration. She was transferred to the intensive care unit. Pulmonary was consulted for ventilator management. In terms of the renal failure nephrology was consulted. Patient is not a candidate for dialysis. Therefore the patient was treated medically. Patient was started on vasopressors for blood pressure support, dopamine renal dose for renal perfusion. Diuretics was likewise started intravenously. Broad-spectrum antibiotic was continued for aspiration pneumonia. Cultures remain negative. We do about measures the patient's urine output improved and his creatinine improved from. 2-D echocardiogram revealed low ejection fraction of 35%. Patient was continued on amiodarone and hydralazine and nitrates was started. Patient subsequently successfully weaned from the ventilator and extubated. She was transferred to telemetry floor and completed antibiotics for pneumonia. The patient improved subsequently. Physical therapy was instituted. Patient remains weak. Course was noted for confusion likely related to prolonged hospitalization and intensive care unit admission. A follow-up urine culture was negative. Patient remains afebrile. WBC remains normal. Her ammonia level likewise was normal, and her thyroid function was likewise normal. Vitamin B12 level was likewise normal. At this point the family was made aware of the findings. Patient eventually transferred back to subacute rehabilitation. Physical Exam Vital Signs: Temp Pulse Resp BP Pulse Ox 97.6 F 82 18 164/77 H 100 10/01/16 08:00 10/01/16 08:00 10/01/16 08:00 10/01/16 08:00 10/01/16 08:00 Intake & Output 09/30/16 10/01/16 10/02/16 06:59 06:59 06:59 Intake Total Balance Weight Results Laboratory Results: 09/28/16 14:50 09/28/16 14:50 09/28/16 16:30 Catheterized Urine Urine Culture - Final NO GROWTH 2 DAYS 09/25/16 09/25/16 22:35 22:35 Creatine Kinase < 20 L CK-MB (CK-2) 0.63 Troponin I 0.023 Impressions: Head CT 09/28/16 00:00 IMPRESSION: MILD CHRONIC CHANGES OF ATROPHY AND MICROVASCULAR ISCHEMIA. NO ACUTE PROCESS. Chest X-Ray 09/28/16 14:24 IMPRESSION: NO ACUTE RADIOGRAPHIC FINDING IN THE CHEST. OVERALL IMPROVED APPEARANCE COMPARED TO THE PRIOR STUDY. Transfer Plan - Disposition Transfer Plan: Transferred to subacute rehabilitation for physical therapy. The patient will be followed by the physician at the facility. - Time Spent with Patient Time spent with patient: Less than 30 Minutes Qualifiers PATEINT BEING DISCHARGED WITH ANY OF THE FOLLOWING DIAGNOSIS?: Heart Failure HF Pt being discharged on ACEI for LVEF less than 40%?: No Reason(s) for not prescribing ACEI:: Contraindicated - Renal failure HF Pt being discharged on ARBS for LVEF less than 40%?: No Reason(s) for not prescribing ARBS:: Contraindicated - Renal failure HF Pt with Afib discharged with Warfarin?: No Reason(s) for not prescribing Warfarin:: Not indicated HF Pt discharged on evidence-based Beta Janice?: Yes Plan Discharge Plan: Follow-up with primary care physician in one week. Time Spent: Less than 30 Minutes
[2016-10-01 12:10] VITALS: BP 148/76
[2016-10-01] MEDS ORDERED: CARVEDILOL 6.25 MG TABLET PO SCH (22:00)
[2016-10-01] MEDS ORDERED: CARVEDILOL 3.125 MG TABLET PO SCH (22:00)
== END 2016-10-01 15:09 | DRG 682 ==
LOC: ER 19:19 → UNDOADMIN 09-12 04:52 → EH 09-12 04:52 → 4N 09-12 15:14 → ICU 09-14 18:00 → 5 09-26 14:26
PROVIDERS: ADMIT Family Medicine; ATTEND Family Medicine
PROC: 02HV33Z Insertion of Infusion Device into Superior Vena Cava, Percutaneous Approach (ICD-10-PCS; principal; 2016-09-14)
PROC: 5A1955Z Respiratory Ventilation, Greater than 96 Consecutive Hours (ICD-10-PCS; 2016-09-15)
PROC: 0BH17EZ Insertion of Endotracheal Airway into Trachea, Via Natural or Artificial Opening (ICD-10-PCS; 2016-09-15)
DX: N17.8 Other acute kidney failure (principal); G93.40 Encephalopathy, unspecified; J96.02 Acute respiratory failure with hypercapnia; J96.01 Acute respiratory failure with hypoxia; J69.0 Pneumonitis due to inhalation of food and vomit; N39.0 Urinary tract infection, site not specified; I13.0 Hypertensive heart and chronic kidney disease with heart failure and stage 1 through stage 4 chronic kidney disease, or unspecified chronic kidney disease; I50.20 Unspecified systolic (congestive) heart failure; Z68.42 Body mass index [BMI] 45.0-49.9, adult; D50.9 Iron deficiency anemia, unspecified; N18.4 Chronic kidney disease, stage 4 (severe); E87.5 Hyperkalemia; E11.22 Type 2 diabetes mellitus with diabetic chronic kidney disease; B96.20 Unspecified Escherichia coli [E. coli] as the cause of diseases classified elsewhere; L89.152 Pressure ulcer of sacral region, stage 2; L89.619 Pressure ulcer of right heel, unspecified stage; E66.9 Obesity, unspecified; F32.9 Major depressive disorder, single episode, unspecified; M19.90 Unspecified osteoarthritis, unspecified site; Z79.82 Long term (current) use of aspirin; Z79.4 Long term (current) use of insulin; Z79.899 Other long term (current) drug therapy; Z95.0 Presence of cardiac pacemaker; Z88.1 Allergy status to other antibiotic agents; Z86.73 Personal history of transient ischemic attack (TIA), and cerebral infarction without residual deficits
CPT/HCPCS: 31500; 36415; 36600; 51701; 70450; 71010; 80048; 80053; 81001; 82140; 82550; 82553; 82607; 82728; 82746; 82803; 82962; 83540; 83550; 83605; 83735; 84100; 84165; 84439; 84443; 84466; 84484; 85025; 85027; 85045; 85610; 85730; 87040; 87070; 87086; 87088; 87186; 87205; 87493; 93005; 93010; 93306; 94002; 94003; 94660; 96365; 96366; 99285; C1751; G8978-GP; G8979-GP; G8996-GN; G8997-GN; J0330; J0743; J1265; J1642; J1644; J1815; J1940; J1956; J2060; J2270; J2704; J3480; J3490; J7030; J7050

== ENCOUNTER 2016-10-13 13:50 | Emergency (ER) | payer MEDICARE, OTHER ==
[~2016-10-13 13:50] MED LIST: ROCURONIUM BROMIDE INJ 50 MG/5 ML VIAL IV ONE
[2016-10-13] MEDS ORDERED: LIDOCAINE 1% INJ-PF (10 MG/ML) 30 ML SDV ONE (13:57)
[2016-10-13] MEDS ORDERED: LIDOCAINE 2% INJ-PF (100 MG/5 ML) SYRINGE ONE (13:58)
[2016-10-13] MEDS ORDERED: NORMAL SALINE 1000 ML 2,000 ML IV ONE (14:06)
--- NOTE | 2016-10-13 14:26 | ER Document Report ---
ED Resuscitation - General Chief Complaint: Unresponsive Stated Complaint: UNRESPONSIVE Notes: The patient is a 76-year-old female, past medical history CHF, hypertension, presents from [facility] after she was found to have decreased responsiveness and increased shortness of breath. When EMS arrived, her pulse ox was in the 70s. She was placed on a non-rebreather and brought to the emergency room. EMS said that patient will not respond to voice when they first arrived, but is now opening her eyes to voice. TRAVEL OUTSIDE OF THE [place] IN LAST 30 DAYS: No - Related Data Allergies/Adverse Reactions: cefadroxil [From Duricef] Allergy (Verified 09/04/16 22:56) celecoxib [From Celebrex] Allergy (Verified 09/04/16 22:56) Sulfa (Sulfonamide Antibiotics) Allergy (Verified 09/04/16 22:56) Home Medications: Current Home Medications Amiodarone HCl [Cordarone 200 mg Tablet] 200 mg PO DAILY 10/13/16 [History] Ascorbic Acid [Vitamin C 500 mg Tablet] 500 mg PO DAILY 10/13/16 [History] Aspirin [Aspirin 81 mg Chewable Tablet] 81 mg PO DAILY 10/13/16 [History] Atorvastatin Calcium [Lipitor 10 mg Tablet] 10 mg PO QHS 10/13/16 [History] Carvedilol [Coreg 6.25 mg Tablet] 6.25 mg PO Q12 10/13/16 [History] Collagenase Clostridium Hist. [Santyl Ointment 30 gm] 1 applic TP DAILY [History] Cyanocobalamin (Vitamin B-12) [Vitamin B-12] 1,000 mcg PO DAILY 10/13/16 [ History] Ergocalciferol (Vitamin D2) [Vitamin D2] 50,000 unit PO FR@1000 10/13/16 [ History] Ferrous Sulfate [Feosol 325 mg Tablet] 325 mg PO BID 10/13/16 [History] Furosemide [Lasix] 40 mg PO QPM 10/13/16 [History] Glucagon,Human Recombinant [Glucagen] 1 mg IJ PRN PRN 10/13/16 [History] Guaifenesin [Robitussin Syrup 200 mg/10 ml Ud Cup] 200 mg PO Q4HP PRN 10/13/16 [ History] Insulin Lispro [Humalog] 0 unit SQ .SLDSCALE 10/13/16 [History] Isosorb Dinit/Hydralazine HCl [Bidil 20-37.5 mg Tablet] 0.5 tab PO Q8 10/13/16 [ History] Ketoconazole [Nizoral] 30 gm TP BID 10/13/16 [History] Multivitamin [Multivitamins] 1 each PO DAILY 10/13/16 [History] Omeprazole 20 mg PO DAILY 10/13/16 [History] Zinc Sulfate [Zinc-220 Capsule] 220 mg PO DAILY 10/13/16 [History] Past Medical History - General Information source: Emergency Med Personnel Cannot obtain history due to: Altered mental status - Social History Smoking Status: Unknown if Ever Smoked Family History: Other - Unobtainable - Past Medical History Cardiac Medical History: Reports: Hx Atrial Fibrillation, Hx Congestive Heart Failure, Hx Hypertension Neurological Medical History: Reports: Hx Cerebrovascular Accident Endocrine Medical History: Reports: Hx Diabetes Mellitus Type 2 Renal/ Medical History: Reports: Hx Renal Insufficiency. Denies: Hx Peritoneal Dialysis GI Medical History: Reports: Hx Gastroesophageal Reflux Disease Musculoskeltal Medical History: Reports Hx Arthritis Psychiatric Medical History: Reports: Hx Depression Past Surgical History: Reports: Hx Cardiac Surgery - pacemaker/defib, Hx Orthopedic Surgery, Hx Pacemaker - 12/06/2015 Review of Systems - Review of Systems -: Yes ROS unobtainable due to patient's medical condition Physical Exam - Vital signs Vitals: Pulse Ox 100 10/13/16 15:43 - Notes Notes: PHYSICAL EXAMINATION: GENERAL: Opens eyes to voice, but quickly falls back asleep. Mild respiratory distress. HEAD: Atraumatic, normocephalic. EYES: Pupils equal round and reactive to light, right gaze palsy, sclera anicteric, conjunctiva are normal. ENT: Nasal trumpet in place by EMS, nares patent, oropharynx clear without exudates. Moist mucous membranes. NECK: Normal range of motion, supple without lymphadenopathy LUNGS: Bibasilar crackles and rhonchi, coarse breath sounds diffusely, mild respiratory distress HEART: Regular rate and rhythm without murmurs ABDOMEN: Soft, nontender, normoactive bowel sounds. No guarding, no rebound. No masses appreciated. EXTREMITIES: No cyanosis. NEUROLOGICAL: Moves all 4 extremities, withdraws from pain SKIN: Warm, Dry, normal turgor, no rashes or lesions noted. Course - Re-evaluation Re-evalutation: When patient arrived to the emergency room, she was switched to BiPAP and given Narcan. Her mental status and respiratory drive did not change after the Narcan. Because of poor venous access and body habitus, a central line was placed in the RIJ. Her initial blood pressure of 70/50 improved with fluids. She was brought over to CT to rule out a head bleed. CT shows chronic changes, but no acute changes. Unknown time of onset of these symptoms, sick patient is not a TPA candidate if this is stroke, although her mental status changes is most likely from a respiratory process. Her blood gas showed a hypercarbic, hypoxic respiratory acidosis and the patient was intubated due to decreasing mental status and for airway protection. Her x-ray shows bilateral pneumonia and vascular congestion. Because she was recently admitted to the hospital, will cover for HCAP. 10/13/16 16:[address] Betancourt (Hospitalist) and states that no ICU beds or service available at our hospital until 10/16/16. Called over to [facility] and awaiting callback. Patient resting comfortably on propofol drip. 10/13/16 16:32 Spoke to Yvette Marie at [facility] ICU and she has accepted patient. - Vital Signs Vital signs: Temp Pulse Resp BP Pulse Ox 100 10/13/16 15:43 - Laboratory Result Diagrams: 10/13/16 14:20 10/13/16 14:20 Laboratory results interpreted by me: 10/13/16 10/13/16 10/13/16 14:20 14:20 14:20 RBC 3.18 L Hgb 9.4 L Hct 29.2 L Plt Count 146 L Seg Neuts % (Manual) 93 H Lymphocytes % (Manual) 4 L Monocytes % (Manual) 2 L Metamyelocytes % 1 H Abs Lymphs (Manual) 0.2 L VBG pH VBG pCO2 BUN 38 H Creatinine 2.10 H Est GFR ( Amer) 28 L Est GFR (Non-Af Amer) 23 L Glucose 132 H Lactic Acid 0.5 L Albumin 3.3 L Urine Protein Urine Ascorbic Acid 10/13/16 10/13/16 14:20 15:10 RBC Hgb Hct Plt Count Seg Neuts % (Manual) Lymphocytes % (Manual) Monocytes % (Manual) Metamyelocytes % Abs Lymphs (Manual) VBG pH 7.17 L* VBG pCO2 75.6 H* BUN Creatinine Est GFR ( Amer) Est GFR (Non-Af Amer) Glucose Lactic Acid Albumin Urine Protein 100 H Urine Ascorbic Acid 40 H - Diagnostic Test Radiology reviewed: Image reviewed, Reports reviewed Radiology results interpreted by me: CT Head: NAD CXR: Bilateral pulmonary infiltrates - EKG Interpretation by Me Rate: Normal Rhythm: Other - Paced Procedures - Central Line Right Internal jugular Time completed: 14:25 Consent obtained: No - Emergent, Poor venous access, Hypotensive Central line pre-insertion: Sterile PPE donned, Betadine prep applied, Chloraprep applied, Sterile drapes applied Central line size (Fr.): 16 Central line lumen type: Triple Anesthetic type: 1% Lidocaine mL's of anesthesia: 4 Ultrasound guided: Yes CM at insertion site: 16 Line secured with sutures: Yes Central line post-insertion: Blood return from lumens, Biopatch applied, Sutured , Sterile dressing applied, Position confirmed w/ CXR Number of attempts: 1 Complications: No - Intubation Orotracheal Time of Intubation: 15:04 Airway evaluation: Large tongue, Obese Mallampati Classification: Class 2 Medications: Etomidate, Other - Rocuronium Intubation method: Orotracheal Blade type: Ricardo Blade size: 4 Equipment used: Glidescope ETT size: 7.5 ETT secured at: Teeth ETT secured at (cm): 24 Breath Sounds after Intubation: Equal End tidal CO2 confirmed: Yes Ventilator settings: AC Tidal volume: 500 FiO2: 100 Respirations: 16 PEEP: 10 Post Intubation Xray: Yes Intubation Complications: No complications - Additional Procedures IO insertion Time performed: 14:26 Additional Procedures: IO insertion Critical Care Note - Critical Care Note Total time excluding time spent on procedures (mins): 65 Discharge - Discharge Clinical Impression: HCAP (healthcare-associated pneumonia) Respiratory failure with hypoxia and hypercapnia Qualifiers: Chronicity: acute Qualified Code(s): J96.01 - Acute respiratory failure with hypoxia Condition: Critical Disposition: [facility] Referrals: RICHA CALVIN MD [Primary Care Provider] - Follow up as needed
[2016-10-13 14:45] LABS: VENOUS BLOOD HCO3 26.8 mmol/L (20-32)
[2016-10-13 14:47] LABS: HEMATOCRIT 29.2 % (36.0-47.0); HEMOGLOBIN 9.4 g/dL (12.0-15.5); MEAN CORPUSCULAR HEMOGLOBIN 29.7 pg (27.0-33.4); MEAN CORPUSCULAR HGB CONC 32.4 g/dL (32.0-36.0); MEAN CORPUSCULAR VOLUME 92 fl (80-97); RED BLOOD COUNT 3.18 10^6/uL (3.72-5.28); RED CELL DISTRIBUTION WIDTH 13.6 % (11.5-14.0); WHITE BLOOD COUNT 5.4 10^3/uL (4.0-10.5)
[2016-10-13 14:48] LABS: VENOUS BLOOD PCO2 75.6 mmHg (35-63); VENOUS BLOOD PH 7.17 (7.30-7.42)
[2016-10-13] MEDS ORDERED: PROPOFOL 100 ML IV ONE ×2 (14:53→18:58)
[2016-10-13 14:56] LABS: PROTHROMBIN TIME 14.1 SEC (11.4-15.4)
[2016-10-13] MEDS ORDERED: IPRATROPIUM/ALBUTEROL 0.5-2.5 MG/3 ML AMPUL NEB ONE ×2 (15:02→15:35)
[2016-10-13] MEDS ORDERED: VANCOMYCIN HCL INJ 1000 MG VIAL IV ONE (15:03)
[2016-10-13] MEDS ORDERED: PIPERACILLIN/TAZOBACTAM 3.375 GM VIAL IV ONE (15:03)
[2016-10-13 15:05] LABS: ALANINE AMINOTRANSFERASE 31 U/L (9-52); ALBUMIN 3.3 g/dL (3.5-5.0); ALKALINE PHOSPHATASE 93 U/L (38-126); ANION GAP 11 (5-19); ASPARTATE AMINO TRANSFERASE 16 U/L (14-36); BASOPHILS % (MANUAL) 0 % (0-2); BILIRUBIN,DIRECT 0.3 mg/dL (0.0-0.4); BILIRUBIN,TOTAL 0.4 mg/dL (0.2-1.3); BLOOD UREA NITROGEN 38 mg/dL (7-20); CALCIUM 9.5 mg/dL (8.4-10.2); CARBON DIOXIDE 29 mmol/L (22-30); CHLORIDE 105 mmol/L (98-107); EOSINOPHILS % (MANUAL) 0 % (0-6); GLUCOSE 132 mg/dL (75-110); LYMPHOCYTES % (MANUAL) 4 % (13-45); POTASSIUM 4.6 mmol/L (3.6-5.0); SODIUM 144.5 mmol/L (137-145); TOTAL CELLS COUNTED 100; TOTAL PROTEIN 6.4 g/dL (6.3-8.2)
[2016-10-13 15:07] LABS: HYPOCHROMASIA SLIGHT; PLATELET CLUMPS PRESENT
[2016-10-13 15:29] LABS: AMORPHOUS SEDIMENT,URINE TRACE /HPF; APPEARANCE,URINE CLOUDY; BILIRUBIN,URINE NEGATIVE (NEGATIVE); GLUCOSE, URINE NEGATIVE (NEGATIVE); KETONES,URINE NEGATIVE (NEGATIVE); LEUKOCYTE ESTERASE,URINE NEGATIVE (NEGATIVE); NITRITE,URINE NEGATIVE (NEGATIVE); PROTEIN,URINE 100 mg/dL (NEGATIVE); URINE SPECIFIC GRAVITY 1.014; UROBILINOGEN,URINE NEGATIVE mg/dL (<2.0)
[2016-10-13] MEDS ORDERED: ROCURONIUM BROMIDE INJ 50 MG/5 ML VIAL IV ONE (15:34)
[2016-10-13] MEDS ORDERED: ETOMIDATE INJ/PF 20 MG/10 ML SDV IV ONE (15:34)
[2016-10-13] MEDS ORDERED: LEVOFLOXACIN 750 MG/D5W RTU 150 ML IV ONE (15:34)
[2016-10-13] MEDS ORDERED: NALOXONE HCL INJ 2 MG/2 ML DISP.SYRIN IV ONE (15:35)
[2016-10-13] MEDS ORDERED: LIDOCAINE 2% INJ-PF (100 MG/5 ML) SYRINGE IV ONE (15:35)
[2016-10-13] MEDS ORDERED: LEVOFLOXACIN 750 MG/D5W RTU 150 ML IV SCH (16:00)
--- NOTE | 2016-10-13 17:20 | EKG REPORT ---
SEVERITY:- ABNORMAL ECG - ATRIAL-SENSED VENTRICULAR-PACED RHYTHM : Confirmed by: Raul Johnson MD 13-Oct-2016 17:20:16
[2016-10-13 18:38] VITALS: BP 120/87
== END 2016-10-13 19:20 | disposition short-term general hospital (02) ==
LOC: ER 13:50 → EH 15:57 → UNDOADMIN 15:57 → ER 19:20
PROC: 05HM33Z Insertion of Infusion Device into Right Internal Jugular Vein, Percutaneous Approach (ICD-10-PCS; principal; 2016-10-13)
PROC: 0BH17EZ Insertion of Endotracheal Airway into Trachea, Via Natural or Artificial Opening (ICD-10-PCS; 2016-10-13)
DX: J18.9 Pneumonia, unspecified organism (principal); Y95 Nosocomial condition; J96.01 Acute respiratory failure with hypoxia; R40.4 Transient alteration of awareness; I48.91 Unspecified atrial fibrillation; I50.9 Heart failure, unspecified; I11.0 Hypertensive heart disease with heart failure; E11.9 Type 2 diabetes mellitus without complications; K21.9 Gastro-esophageal reflux disease without esophagitis; Z88.2 Allergy status to sulfonamides; Z79.82 Long term (current) use of aspirin; Z79.4 Long term (current) use of insulin; Z86.73 Personal history of transient ischemic attack (TIA), and cerebral infarction without residual deficits; Z95.810 Presence of automatic (implantable) cardiac defibrillator
CPT/HCPCS: 93005; 94640; 99291; 51702; 96375; 96365; 96368; 36415; 87040; 87086; 82962; 85025; 85610; 87077; 80053; 81001; 87186; 82803; 83605; 71010; 70450; 93010; 36556; 31500; J3490 ×2; J2001; J2310; J3370; J1956; A9270; J2543; J7620